=== PATIENT | female | born 1975 | race Caucasian/White ===

== ENCOUNTER 2021-12-22 10:04 | Outpatient (REF) | payer MEDICAID, OTHER, SELFPAY ==
[2021-12-23 13:50] LABS: CT PCR NOT DETECTED (Not Detect.); NG PCR NOT DETECTED (Not Detect.)
[2021-12-24 08:46] LABS: BV Int Neg Control Negative (Negative); BV Int Pos Control Positive (Positive)
[2021-12-26 01:21] LABS: HPV mRNA E6/E7 rflx Not Detected (Not Detected)
== END 2021-12-22 10:05 | disposition home or self-care (01) ==
LOC: HO.LAB 10:04
PROVIDERS: Visit Provider Advanced Practice Midwife
DX: Z01.411 Encounter for gynecological examination (general) (routine) with abnormal findings (principal); Z11.51 Encounter for screening for human papillomavirus (HPV); Z20.2 Contact with and (suspected) exposure to infections with a predominantly sexual mode of transmission; N63.20 Unspecified lump in the left breast, unspecified quadrant
CPT/HCPCS: 87480; 87491; 87510; 87591; 87624; 87660; 88142

== ENCOUNTER 2022-01-06 15:00 | Outpatient (REF) | payer MEDICAID, OTHER, SELFPAY ==
--- NOTE | ~2022-01-06 | MM_ITS ---
EXAMINATION: MM DIAGNOSTIC DIGITAL BREAST TOMOSYNTHESIS, BILATERAL US DIAGNOSTIC ULTRASOUND BREAST, LEFT CLINICAL INFORMATION: 46-year-old with palpable fullness and tenderness upper outer left breast. No prior breast imaging. No known family history breast cancer. The lifetime risk of breast cancer based on the Tyrer-Cuzick Model is 7%. COMPARISON: None (current study represents initial baseline exam). TECHNIQUE: Digital breast tomosynthesis is performed in both the craniocaudal and mediolateral oblique views along with computer-aided detection (CAD). Synthesized 2D images are generated from the tomosynthesis. Additional views left breast are obtained: Rolled CC x2, spot ML. Ultrasound left breast is targeted to the area of clinical symptoms upper outer quadrant with patient supine and sitting upright. Patient is able to point to the area of concern at time of imaging. In addition, ultrasound also performed periareolar superior breast. Grayscale imaging and color Doppler are performed without and with harmonics. FINDINGS: There are scattered areas of fibroglandular density (ACR BI-RADS breast composition Category b). Right breast shows no significant mass or architectural abnormality. Neither breast shows abnormal calcifications. The bilateral axilla and skin contours are unremarkable. There is no skin thickening or coarsening of the Td's ligaments. Left breast shows no mass or architectural abnormality in the area of palpable concern. There is a circumscribed nodule 7 x 5 mm 11:00 periareolar left breast. Ultrasound left breast in area of palpable concern demonstrates no cystic or solid mass or architectural abnormality. There is no focal duct ectasia. No skin thickening or edema tracking in soft tissue planes. Additional ultrasound periareolar 11:00 breast demonstrates probable complicated cyst measuring 7 x 5 x 5 mm. There is no solid component. No associated peripheral or internal color flow. There is no increased or decreased through transmission of sound. Finding will be reassessed again with targeted ultrasound left breast in 6 months. Results are discussed with the patient and her daughter at time of visit. Patient should be managed based on the clinical impression. If clinically indicated, further evaluation may be considered with surgical consult. Decision to proceed with biopsy should be based on clinical grounds and degree of clinical concern. Otherwise, targeted left breast ultrasound in 6 months is recommended for the periareolar nodule 11:00 position, suspected complicated cyst. MM/MM tomosynthesis diagnostic BI IMPRESSION: Left: -No mammographic or ultrasound correlate for patient's clinical concern upper outer quadrant. -Probable benign complicated cyst periareolar 11:00 position under 1 cm. Right: -No mammographic evidence of malignancy. ASSESSMENT: BI-RADS 3: Probably Benign RECOMMENDATION: 1. Patient's palpable concern may be managed based on the clinical impression. If clinically indicated, further evaluation may be considered with surgical consult. Decision to proceed with biopsy should be based on clinical grounds and degree of clinical concern. 2. Targeted left breast ultrasound for follow-up of probable benign complicated cyst periareolar 11:00 position. This patient's information was entered into a reminder system with a target due date for their next breast imaging.
== END 2022-01-06 15:01 | disposition home or self-care (01) ==
LOC: HO.MAMMO 15:00
PROVIDERS: Visit Provider Advanced Practice Midwife
DX: N63.25 Unspecified lump in the left breast, overlapping quadrants (principal)
CPT/HCPCS: 76642; 77062; 77066

== ENCOUNTER 2022-02-16 13:33 | Outpatient (REF) | payer MEDICAID, OTHER, SELFPAY ==
[2022-02-18 21:11] LABS: HPV mRNA E6/E7 rflx Not Detected (Not Detected)
== END 2022-02-16 13:34 | disposition home or self-care (01) ==
LOC: HO.LAB 13:33
PROVIDERS: Visit Provider Advanced Practice Midwife
DX: Z01.419 Encounter for gynecological examination (general) (routine) without abnormal findings (principal); R87.615 Unsatisfactory cytologic smear of cervix
CPT/HCPCS: 87624; 88142; 99212

== ENCOUNTER 2022-07-08 13:02 | Outpatient (REF) | payer MEDICAID, OTHER, SELFPAY ==
--- NOTE | ~2022-07-08 | US_ITS ---
EXAMINATION: US DIAGNOSTIC ULTRASOUND BREAST, LEFT CLINICAL INFORMATION: Short interval six-month follow-up probable benign complicated cyst 11:00 anterior left breast initially noted at diagnostic baseline exam. TC score 7%. COMPARISON: Targeted left breast ultrasound 01/06/2022, mammography 01/06/2022. TECHNIQUE: Ultrasound left breast is targeted to the upper breast. Grayscale imaging and color Doppler are performed without and with harmonics. FINDINGS: The small complicated cyst under 11:00 position 3 cm from nipple under 1 cm is stable from prior diagnostic ultrasound. There are some low-level internal echoes likely related to apocrine metaplasia. There is no associated solid component or color flow. No significant increased through-transmission of sound. No ductal ectasia. No hyperemia. Results are provided to the patient at time of visit by the technologist. US/US breast LT limited IMPRESSION: -Probable benign small complicated cyst 11:00 position stable. ASSESSMENT: BI-RADS 3: Probably Benign RECOMMENDATION: Targeted ultrasound at time of annual bilateral diagnostic mammography, due in 6 months. This patient's information was entered into a reminder system with a target due date for their next mammogram.
== END 2022-07-08 13:03 | disposition home or self-care (01) ==
LOC: HO.MAMMO 13:02
PROVIDERS: Visit Provider Advanced Practice Midwife
DX: R92.2 Inconclusive mammogram (principal)
CPT/HCPCS: 76642

== ENCOUNTER 2022-12-28 16:20 | Emergency (ER) | payer MEDICAID, OTHER, SELFPAY ==
--- NOTE | ~2022-12-28 | CT_ITS ---
EXAMINATION: CT ABDOMEN AND PELVIS WITHOUT CONTRAST CLINICAL INFORMATION: Lower abdominal pain COMPARISON: None TECHNIQUE: Multidetector volumetric imaging was performed from the superior aspect of the liver through the pubic symphysis. Sagittal and coronal reformatted images were obtained on the technologist's workstation. This CT examination was performed using dose optimization techniques as appropriate, variously including the following: *Automated exposure control *Adjustment of mA and/or kV according to patient size (this includes techniques or standardized protocols for targeted exams where dose is matched to indication/reason for exam; i.e. extremities or head) *Use of iterative reconstruction technique DLP: 770 mGy-cm FINDINGS: LUNG BASES: The visualized lung bases are unremarkable. LIVER, GALLBLADDER, AND BILIARY TREE: The liver is normal in size, shape, and attenuation. No focal hepatic lesion or biliary ductal dilatation is present. The gallbladder is unremarkable with no evidence of radiopaque gallstones, gallbladder wall thickening, or obvious pericholecystic inflammatory changes. PANCREAS: Unremarkable. SPLEEN: Unremarkable. ADRENAL GLANDS: There is a 2.4 cm nodule in left adrenal gland measuring -6 HU compatible with benign lipid rich adenoma. Normal right adrenal gland. KIDNEYS AND URETERS: The kidneys are normal in size, shape, and attenuation. No hydronephrosis, hydroureter, or calculi seen. No perinephric stranding. BLADDER: Unremarkable. GASTROINTESTINAL TRACT: The small and large bowel are unremarkable. The appendix is unremarkable. ABDOMINAL WALL: Small indirect inguinal hernias bilaterally. LYMPH NODES: Normal. VASCULAR: Unremarkable. PELVIC VISCERA: All hyperdensity present within the endometrial canal suspicious for blood products. Nabothian cysts in the cervix. There is a 4.8 cm simple appearing cyst in the right ovary. No follow-up imaging recommended. Left adnexa unremarkable. OSSEOUS STRUCTURES: Unremarkable. CT/CT abdomen pelvis wo IV con IMPRESSION: * No acute findings within the abdomen or pelvis to explain the patient's symptomatology. * There is a 2.4 cm left adrenal nodule compatible with a benign lipid rich adenoma.
--- NOTE | ~2022-12-28 | US_ITS ---
EXAMINATION: US PELVIS CLINICAL INFORMATION: Right lower quadrant pain and vaginal bleeding COMPARISON: None TECHNIQUE: Ultrasound of the pelvis is performed using both transabdominal and transvaginal transducers along with Doppler. Transvaginal imaging is performed due to inadequate visualization transabdominally. FINDINGS: Uterus: The uterus is anteverted and measures 11.1 x 5.5 x 6.0 cm. Multiple cysts are present in the uterus mostly anterior with the largest measuring 1.3 cm. This is an unusual finding and can be seen with adenomyosis. Pelvic MRI would be useful for further evaluation. The double wall endometrial thickness is 0.4 mm. The uterus is smooth in contour and has normal myometrial echogenicity. A 2.3 x 2.6 x 2.0 cm fibroid is noted near the left cornu. Nabothian cysts are present in the cervix. Adnexa: Both ovaries are visualized. There is normal color flow to the adnexa. There is no ovarian torsion. There is no pelvic ascites or fluid collection. Right ovary measures 5.1 x 4.4 x 4.6 cm for a volume of 54 mL which includes a 4.1 x 4.0 x 4.1 cm ovarian cyst. Left ovary measures 2.2 x 1.5 x 2.8 cm for a volume of 5 mL and appears unremarkable with follicular cysts. US/US pelvic and transvaginal IMPRESSION: 1. Cystic changes in the uterus which can be seen with adenomyosis. Pelvic MRI would be useful for further evaluation. 2. Uterine fibroid. 3. 4.1 cm right ovarian cyst needs no follow-up.
--- NOTE | ~2022-12-28 | US_ITS ---
EXAMINATION: US PELVIS CLINICAL INFORMATION: Right lower quadrant pain and vaginal bleeding COMPARISON: None TECHNIQUE: Ultrasound of the pelvis is performed using both transabdominal and transvaginal transducers along with Doppler. Transvaginal imaging is performed due to inadequate visualization transabdominally. FINDINGS: Uterus: The uterus is anteverted and measures 11.1 x 5.5 x 6.0 cm. Multiple cysts are present in the uterus mostly anterior with the largest measuring 1.3 cm. This is an unusual finding and can be seen with adenomyosis. Pelvic MRI would be useful for further evaluation. The double wall endometrial thickness is 0.4 mm. The uterus is smooth in contour and has normal myometrial echogenicity. A 2.3 x 2.6 x 2.0 cm fibroid is noted near the left cornu. Nabothian cysts are present in the cervix. Adnexa: Both ovaries are visualized. There is normal color flow to the adnexa. There is no ovarian torsion. There is no pelvic ascites or fluid collection. Right ovary measures 5.1 x 4.4 x 4.6 cm for a volume of 54 mL which includes a 4.1 x 4.0 x 4.1 cm ovarian cyst. Left ovary measures 2.2 x 1.5 x 2.8 cm for a volume of 5 mL and appears unremarkable with follicular cysts. US/US pelvic ovarian doppler IMPRESSION: 1. Cystic changes in the uterus which can be seen with adenomyosis. Pelvic MRI would be useful for further evaluation. 2. Uterine fibroid. 3. 4.1 cm right ovarian cyst needs no follow-up.
[2022-12-28 16:34] VITALS: BP 147/85; PULSE 85; RESP 20; TEMP 36.2; O2SAT 100; BMI 34.3
--- NOTE | 2022-12-28 16:35 | ED_ITS ---
HPI - Female Genitourinary General Chief complaint: Vaginal Bleeding <Millie Olvera CNP - Last Filed: 12/28/22 16:40> Stated complaint: Heavy menstrual/Dizziness <Millie Olvera CNP - Last Filed: 12/28/22 16:40> Time Seen by Provider: 12/28/22 17:23 <Millie Olvera CNP - Last Filed: 12/28/22 16:40> Source: patient <ALEJANDRO Flores - Last Filed: 12/29/22 00:08> Mode of arrival: ambulatory <ALEJANDRO Flores - Last Filed: 12/29/22 00:08> Limitations: no limitations <ALEJANDRO Flores - Last Filed: 12/29/22 00:08> History of Present Illness HPI Narrative: This is a 47-year-old female no significant medical history presenting to the emergency department complaints of heavy vaginal bleeding since 12/13/2022, patient tells me that since then she has been having dark red vaginal bleeding with clots, patient tells me she is going through 7-8 pads per day completely saturating them. Patient tells me she feels tired, weak, lightheaded at times. She tells me that this is never happened to her before. Patient reports she last had a Pap smear about a year ago which was normal. She tells me she was on control about a year ago. She tells me she feels like she has no energy. No history of ovarian cyst. Patient has vague complaints of right lower quadrant pain intermittently however not present at this time, she describes the pain is boring, localized to the right lower quadrant as a crampy sensation, nonradiating. Patient denies changes in bowel habits, nausea, vomiting, headache, vision changes, chest pain, shortness of breath, fevers and chills. Patient denies any concerns for or STDs. <ALEJANDRO Flores - Last Filed: 12/29/22 00:08> Related Data Home medications: Home Medications Medication Instructions Recorded Confirmed calcium carbonate 600 mg calcium 600 mg PO DAILY 12/22/21 12/22/21 (1,500 mg) tablet (Calcium) cholecalciferol (vitamin D3) 25 25 mcg PO DAILY 12/22/21 12/22/21 mcg (1,000 unit) capsule ferrous gluconate 324 mg (38 mg 324 mg PO DAILY 12/22/21 12/22/21 iron) tablet omeprazole 20 mg capsule,delayed 20 mg PO DAILY 12/22/21 12/22/21 release Previous Rx's Medication Instructions Recorded cefuroxime axetil 250 mg tablet 250 mg PO BID 7 days #14 tabs 12/28/22 ferrous sulfate 325 mg (65 mg 325 mg PO TID #30 tabs 12/28/22 iron) tablet medroxyprogesterone 10 mg tablet 10 mg PO DAILY #30 tabs 12/28/22 (Provera) <Millie Olvera CNP - Last Filed: 12/28/22 16:40> Allergies/Adverse reactions: Allergies Allergy/AdvReac Type Severity Reaction Status Date / Time No Known Allergies Allergy Verified 02/16/22 13:39 <Millie Olvera CNP - Last Filed: 12/28/22 16:40> Review of Systems Review of Systems: Constitutional : No Weight loss, No Fever, No Chills, + Fatigue, + Malaise ENT/Mouth : No sore throat, No Rhinorrhea Eyes: No Eye Pain, No Swelling, No Redness Cardiovascular : No Chest Pain, No SOB, No Dyspnea on Exertion, No Orthopnea, No Edema, No Palpitations Respiratory : No Cough, No Sputum, No Wheezing Gastrointestinal : No Nausea, No Vomiting, No Diarrhea, No Constipation, No abdominal Pain, No Hematochezia, No Melena Genitourinary : No Dysuria, No Urinary Frequency, No Hematuria, + vaginal bleeding Musculoskeletal : No joint pain, No Myalgias, No Joint Swelling Skin : No Skin Lesions, No rash Neuro : + Weakness, No Numbness, + Dizziness, No Headache Psych : No Anxiety/Panic, No Depression All other systems reviewed and are negative <ALEJANDRO Flores - Last Filed: 12/29/22 00:08> Yes all other systems are reviewed and are negative <ALEJANDRO Flores - Last Filed: 12/29/22 00:08> [facility] Past Medical History Attestation statement: The following information was validated with the patient. <ALEJANDRO Flores - Last Filed: 12/29/22 00:08> Source: old records reviewed and nursing notes reviewed <ALEJANDRO Flores - Last Filed: 12/29/22 00:08> Medical History: Medical History Hypoparathyroidism Varicose veins of legs Vitamin A deficiency <Millie Archanatunde Olvera CNP - Last Filed: 12/28/22 16:40> Social History Social History: Social History Alcohol intake: never Patient Tobacco Use Status: Never used Tobacco Smoked in Last 30 Days: No Advance Directives: No Advance Directives Information Provided: No Gender identity: Female <Millie Archanatunde Olvera CNP - Last Filed: 12/28/22 16:40> Physical Exam Vital Signs: Vital Signs: Last Vital Signs Temp 998.3 F H 12/28/22 23:53 Pulse 66 12/28/22 23:53 Resp 12/28/22 23:53 BP 125/68 12/28/22 23:53 Pulse Ox 99 12/28/22 20:18 O2 Del Method 12/28/22 20:18 BMI result Body Mass Index 34.3 <Millie AtwoodOFE noguera - Last Filed: 12/28/22 16:40> Vital Signs: Last Vital Signs Temp 998.3 F H 12/28/22 23:53 Pulse 66 12/28/22 23:53 Resp 12/28/22 23:53 BP 125/68 12/28/22 23:53 Pulse Ox 99 12/28/22 20:18 O2 Del Method 12/28/22 20:18 BMI result Body Mass Index 34.3 <Willie Nieto DO - Last Filed: 12/28/22 22:37> Vital Signs: Last Vital Signs Temp 998.3 F H 12/28/22 23:53 Pulse 66 12/28/22 23:53 Resp 15 12/28/22 23:53 BP 125/68 12/28/22 23:53 Pulse Ox 99 12/28/22 20:18 O2 Del Method 12/28/22 20:18 BMI result Body Mass Index 34.3 vss <ALEJANDRO Flores - Last Filed: 12/29/22 00:08> Appearance: Alert.? Oriented X3.? No acute distress.? Head: Normocephalic, atraumatic, no step-offs or deformities Eyes: Pupils equal, round and reactive to light.? ENT: Pharynx normal.? Neck: Normal inspection.? Neck supple.? CVS: Normal heart rate and rhythm.? Pulses normal.? Respiratory: No respiratory distress.? Breath sounds normal.? Abdomen: Soft and nontender.? Negative Rovsing, McBurney's point. Skin: Skin warm and dry.? Normal skin color.? Normal skin turgor.? Extremities: No lower extremity edema.? No calf ttp. 5/5 strength to bilateral upper and lower extremities Sensitive exam: Cervical os is closed, there is dark red blood coming from the cervical os containing large clots. No cervical motion tenderness. No adnexal tenderness. No lesions lumps or masses on my exam. Swabs were obtained. Teressa PCT at the bedside as a commercial housekeeper. Back: No midline tenderness, no C-spine tenderness, full range of motion, no CVA tenderness bilaterally Neuro: Oriented X 3.? No motor deficit.? No sensory deficit. CN 2-12 intact . Normal [id number], [id number]. Steady tandem gait with normal coordination <ALEJANDRO Flores - Last Filed: 12/29/22 00:08> Course Course Course Narrative: This is an RME: Additional HPI, ROS, PE not included below will be deferred to primary provider. Patient is a 47-year-old female presents to the emergency department for evaluation of menstrual bleeding. Reports onset 023, heavy menstrual bleeding with clots. States this was her anticipated menstrual period, however usually lasts approximately 5 days. Using pads, saturating through approximately 7-8 pads daily. Yesterday was seen by her PCP, referred PT to [facility], pending appointment. Reports improvement over the past 2 days, however, having lightheadedness, headache, dizziness. Has history of AMY, denies history of requiring blood transfusion. Plan: labs, hcg, urinalysis <Millie Olvera CNP - Last Filed: 12/28/22 16:40> Reevaluation(s) Reevaluation #1: I did speak to Dr. Luis FOSTER who recommends transfusing with 1 unit of packed red blood cells due to the drop in H&H and patient is symptomatic. He is also worried because Provera will likely take few days to take action. He also recommends giving patient 20 mg of Provera here. And monitor patient until later. <ALEJANDRO Flores - Last Filed: 12/29/22 00:08> Time: 20:05 <ALEJANDRO Flores - Last Filed: 12/29/22 00:08> Reevaluation #2: Patient has only gone through 2 pads during her time here. I did obtain consent for blood transfusion both written and verbal. Will repeat blood count after transfusion. CBC does have a slight normocytic anemia hemoglobin 9.1, hematocrit 27.6, likely secondary to acute blood loss. Chemistry with no acute findings requiring intervention, beta hCG negative. UA with infection. Pelvic ultrasound showing cystic changes in the uterus which can be seen in adenomyosis, pelvic MRI can be done in an outpatient setting. A uterine fibroid is noted. 4.1 cm right ovarian cyst also noted. Again patient does not have tenderness to palpation to right lower quadrant therefore I do not suspect appendicitis. Blood transfusion, orthostatics vital signs, CT abd and pelvis for further investigation of abd pain <ALEJANDRO Flores - Last Filed: 12/29/22 00:08> Time: 22:59 <ALEJANDRO Flores - Last Filed: 12/29/22 00:08> Reevaluation #3: Patient's hemoglobin and hematocrit improving, patient feels slightly better however reporting slight headache which she tells me feels like her typical, no focal neuro deficits. At this time will give morphine, patient will get a ride home. Nursing to go over discharge paperwork in patient's language darkish with japanese interpreter. I did go over with her in Kazakh, she verbalizes understanding however I want to make sure that she understands well. Educated patient on diagnosis and treatment plan, answered all question, patient verbalizes understanding. At this time patient will be discharged home, advised to return with new or worsening symptoms. Educated on worrisome signs and symptoms and when to return. At this time I feel comfortable discharge home. <ALEJANDRO Flores Last Filed: 12/29/22 00:08> Time: 00:07 <ALEJANDRO Flores - Last Filed: 12/29/22 00:08> Medications Administered Discontinued Medications Generic Name Dose Route Start Last Admin Trade Name Freq PRN Reason Stop Dose Admin Medroxyprogesterone Acetate 20 mg 12/28/22 20:40 12/28/22 21:45 Medroxyprogesterone Acetate 5 Mg Tablet PO 12/28/22 20:41 20 mg ONCE ONE Administration <Millie Olvera CNP - Last Filed: 12/28/22 16:40> Medications Administered Discontinued Medications Generic Name Dose Route Start Last Admin Trade Name Freq PRN Reason Stop Dose Admin Medroxyprogesterone Acetate 20 mg 12/28/22 20:40 12/28/22 21:45 Medroxyprogesterone Acetate 5 Mg Tablet PO 12/28/22 20:41 20 mg ONCE ONE Administration <Willie Nieto DO - Last Filed: 12/28/22 22:37> Medications Administered Discontinued Medications Generic Name Dose Route Start Last Admin Trade Name Freq PRN Reason Stop Dose Admin Medroxyprogesterone Acetate 20 mg 12/28/22 20:40 12/28/22 21:45 Medroxyprogesterone Acetate 5 Mg Tablet PO 12/28/22 20:41 20 mg ONCE ONE Administration <ALEJANDRO Flores - Last Filed: 12/29/22 00:08> Medical Decision Making Medical Decision Making [facility] Narrative: 1800 This is a 47-year-old female presenting with heavy vaginal bleeding since 12/13/2022 reports fatigue, malaise, weakness, lightheadedness. Physical exam significant for Cervical os is closed, there is dark red blood coming from the cervical os containing large clots. No cervical motion tenderness. No adnexal tenderness. No lesions lumps or masses on my exam. Swabs were obtained. Teressa LA at the bedside as a commercial housekeeper. Concerns for abnormal vaginal bleeding versus ruptured ovarian cyst. History and physical examination not consistent with ovarian torsion, appendicitis, acute abdomen. Will rule out acute blood loss anemia, electrolyte ab normalities, UTI. Plan at this time ultrasound, basic labs, type and screen, urine. Will obtain vaginal swabs as well for gonorrhea, chlamydia, Trichomonas, bacterial vaginosis. <ALEJANDRO Flores - Last Filed: 12/29/22 00:08> Differential Diagnosis Differential Diagnoses: The differential diagnosis associated with the presentation includes <ALEJANDRO Flores - Last Filed: 12/29/22 00:08> Concerns for abnormal vaginal bleeding versus ruptured ovarian cyst. History and physical examination not consistent with ovarian torsion, appendicitis, acute abdomen. Will rule out acute blood loss anemia, electrolyte abnormalities, UTI. <ALEJANDRO Flores - Last Filed: 12/29/22 00:08> Admission/Observation Consideration of admission/observation: Escalation of care including admission/observation considered <ALEJANDRO Flores - Last Filed: 12/29/22 00:08> Lab Data MDM Lab Attestation statement: I reviewed the patient's lab results. <ALEJANDRO Flores - Last Filed: 12/29/22 00:08> Result Diagrams: 12/28/22 17:09 12/28/22 17:08 <Millie Olvera CNP - Last Filed: 12/28/22 16:40> Labs: Lab Results 12/28/22 12/28/22 12/28/22 Range/Units 17:08 17:08 17:09 WBC 5.8 (4.8-10.8) X10*3/uL RBC 3.19 L (4.20-5.50) X10*6/uL Hgb 9.5 L (12.0-16.0) g/dl Hct 29.2 L (37.0-47.0) % MCV 91.5 (80.0-98.0) fL MCH 29.8 (27.0-33.0) pg MCHC 32.5 (31.0-35.0) g/dl RDW 13.9 (11.0-16.0) % Plt Count 211 (160-400) X10*3/uL MPV 10.5 (9.4-12.3) fL Immature Gran % (Auto) 0.2 (0.0-0.4) % Neut % (Auto) 58.5 (45-73) % Lymph % (Auto) 32.9 (20-40) % [place] % (Auto) 6.7 (2-11) % Eos % (Auto) 1.0 (0-4) % Baso % (Auto) 0.7 (0-2) % Lymph # (Auto) 1.9 (1.2-4.9) X10*3/uL [place] # (Auto) 0.4 (0.1-1.2) X10*3/uL Eos # (Auto) 0.1 (0.0-0.4) X10*3/uL Baso # (Auto) 0.0 (0.0-0.2) X10*3/uL Abs Immat Gran (auto) 0.01 (0.00-0.03) X10*3/uL Absolute Neuts (auto) 3.4 (2.0-8.3) x10*3/uL Absolute Nucleated RBC 0.000 (0.0-0.012) X10*3/uL Nucleated RBC % (auto) 0.0 (0.0-0.2) /100WBC Sodium 140 (135-145) mmol/L Potassium 3.9 (3.3-5.1) mmol/L Chloride 105 (96-108) mmol/L Carbon Dioxide 25 (22-29) mmol/L Anion Gap 14 (12-20) BUN 11 (9-16) mg/dL Creatinine 0.70 (0.5-1.4) mg/dL Estim Creat Clear Calc 110.7 Estimated GFR > 60 Random Glucose 96 (60-115) mg/dL Calcium 8.0 L (8.4-10.2) mg/dL Total Bilirubin 0.5 (0.0-1.0) mg/dL AST 14 (5-31) U/L ALT 10 (0-31) U/L Alkaline Phosphatase 40 (39-117) U/L Total Protein 6.1 L (6.5-8.0) g/dL Albumin 3.7 (3.5-5.0) g/dL Beta HCG, Quant < 2 mIU/mL Urine Color Urine Appearance Urine pH (5.0-9.0) Ur Specific [place] (1.005-1.025) Urine Protein (Neg-Trace) mg/dL Urine Glucose (UA) (Negative) mg/dL Urine Ketones (Negative) mg/dL Urine Blood (Negative) Urine Nitrite (Negative) Ur Leukocyte Esterase (Negative) Urine RBC (0-2) /HPF Urine WBC (0-5) /HPF Ur Squamous Epith Cells (0-2) /HPF Urine Bacteria (None Seen) Hyaline Casts (0-2) /LPF Blood Type A Negative Antibody Screen NEGATIVE Crossmatch See Detail 12/28/22 12/28/22 12/28/22 Range/Units 17:11 20:13 21:17 WBC 5.8 6.0 (4.8-10.8) X10*3/uL RBC 3.04 L 3.02 L (4.20-5.50) X10*6/uL Hgb 9.1 L 9.1 L (12.0-16.0) g/dl Hct 27.6 L 27.4 L (37.0-47.0) % MCV 90.8 90.7 (80.0-98.0) fL MCH 29.9 30.1 (27.0-33.0) pg MCHC 33.0 33.2 (31.0-35.0) g/dl RDW 14.0 14.0 (11.0-16.0) % Plt Count 210 193 (160-400) X10*3/uL MPV 10.7 10.4 (9.4-12.3) fL Immature Gran % (Auto) 0.3 0.0 (0.0-0.4) % Neut % (Auto) 58.8 59.9 (45-73) % Lymph % (Auto) 33.2 32.7 (20-40) % Cascade % (Auto) 6.3 6.2 (2-11) % Eos % (Auto) 0.9 0.7 (0-4) % Baso % (Auto) 0.5 0.5 (0-2) % Lymph # (Auto) 1.9 2.0 (1.2-4.9) X10*3/uL [place] # (Auto) 0.4 0.4 (0.1-1.2) X10*3/uL Eos # (Auto) 0.1 0.0 (0.0-0.4) X10*3/uL Baso # (Auto) 0.0 0.0 (0.0-0.2) X10*3/uL Abs Immat Gran (auto) 0.02 0.00 (0.00-0.03) X10*3/uL Absolute Neuts (auto) 3.4 3.6 (2.0-8.3) x10*3/uL Absolute Nucleated RBC 0.000 0.000 (0.0-0.012) X10*3/uL Nucleated RBC % (auto) 0.0 0.0 (0.0-0.2) /100WBC Sodium (135-145) mmol/L Potassium (3.3-5.1) mmol/L Chloride (96-108) mmol/L Carbon Dioxide (22-29) mmol/L Anion Gap (12-20) BUN (9-16) mg/dL Creatinine (0.5-1.4) mg/dL Estim Creat Clear Calc Estimated GFR Random Glucose (60-115) mg/dL Calcium (8.4-10.2) mg/dL Total Bilirubin (0.0-1.0) mg/dL AST (5-31) U/L ALT (0-31) U/L Alkaline Phosphatase (39-117) U/L Total Protein (6.5-8.0) g/dL Albumin (3.5-5.0) g/dL Beta HCG, Quant mIU/mL Urine Color RED Urine Appearance Turbid Urine pH 5.5 (5.0-9.0) Ur Specific [place] 1.020 (1.005-1.025) Urine Protein 100 (2+) H (Neg-Trace) mg/dL Urine Glucose (UA) Negative (Negative) mg/dL Urine Ketones Trace (Negative) mg/dL Urine Blood Large (3+) H (Negative) Urine Nitrite Positive H (Negative) Ur Leukocyte Esterase Trace H (Negative) Urine RBC >20 H (0-2) /HPF Urine WBC 0-5 (0-5) /HPF Ur Squamous Epith Cells 0-2 (0-2) /HPF Urine Bacteria Trace (None Seen) Hyaline Casts 0-2 (0-2) /LPF Blood Type Antibody Screen Crossmatch 12/28/22 12/28/22 Range/Units 21:55 23:45 WBC 6.2 6.7 (4.8-10.8) X10*3/uL RBC 3.07 L 3.13 L (4.20-5.50) X10*6/uL Hgb 9.1 L 9.5 L (12.0-16.0) g/dl Hct 27.8 L 28.4 L (37.0-47.0) % MCV 90.6 90.7 (80.0-98.0) fL MCH 29.6 30.4 (27.0-33.0) pg MCHC 32.7 33.5 (31.0-35.0) g/dl RDW 13.9 13.8 (11.0-16.0) % Plt Count 199 190 (160-400) X10*3/uL MPV 10.5 10.6 (9.4-12.3) fL Immature Gran % (Auto) 0.2 0.1 (0.0-0.4) % Neut % (Auto) 60.8 57.4 (45-73) % Lymph % (Auto) 31.6 34.6 (20-40) % [place] % (Auto) 6.0 6.4 (2-11) % Eos % (Auto) 0.8 0.9 (0-4) % Baso % (Auto) 0.6 0.6 (0-2) % Lymph # (Auto) 2.0 2.3 (1.2-4.9) X10*3/uL [place] # (Auto) 0.4 0.4 (0.1-1.2) X10*3/uL Eos # (Auto) 0.1 0.1 (0.0-0.4) X10*3/uL Baso # (Auto) 0.0 0.0 (0.0-0.2) X10*3/uL Abs Immat Gran (auto) 0.01 0.01 (0.00-0.03) X10*3/uL Absolute Neuts (auto) 3.8 3.8 (2.0-8.3) x10*3/uL Absolute Nucleated RBC 0.000 0.000 (0.0-0.012) X10*3/uL Nucleated RBC % (auto) 0.0 0.0 (0.0-0.2) /100WBC Sodium (135-145) mmol/L Potassium (3.3-5.1) mmol/L Chloride (96-108) mmol/L Carbon Dioxide (22-29) mmol/L Anion Gap (12-20) BUN (9-16) mg/dL Creatinine (0.5-1.4) mg/dL Estim Creat Clear Calc Estimated GFR Random Glucose (60-115) mg/dL Calcium (8.4-10.2) mg/dL Total Bilirubin (0.0-1.0) mg/dL AST (5-31) U/L ALT (0-31) U/L Alkaline Phosphatase (39-117) U/L Total Protein (6.5-8.0) g/dL Albumin (3.5-5.0) g/dL Beta HCG, Quant mIU/mL Urine Color Urine Appearance Urine pH (5.0-9.0) Ur Specific [place] (1.005-1.025) Urine Protein (Neg-Trace) mg/dL Urine Glucose (UA) (Negative) mg/dL Urine Ketones (Negative) mg/dL Urine Blood (Negative) Urine Nitrite (Negative) Ur Leukocyte Esterase (Negative) Urine RBC (0-2) /HPF Urine WBC (0-5) /HPF Ur Squamous Epith Cells (0-2) /HPF Urine Bacteria (None Seen) Hyaline Casts (0-2) /LPF Blood Type Antibody Screen Crossmatch <Millie Olvera CNP - Last Filed: 12/28/22 16:40> Lab Results 12/28/22 12/28/22 12/28/22 Range/Units 17:08 17:08 17:09 WBC 5.8 (4.8-10.8) X10*3/uL RBC 3.19 L (4.20-5.50) X10*6/uL Hgb 9.5 L (12.0-16.0) g/dl Hct 29.2 L (37.0-47.0) % MCV 91.5 (80.0-98.0) fL MCH 29.8 (27.0-33.0) pg MCHC 32.5 (31.0-35.0) g/dl RDW 13.9 (11.0-16.0) % Plt Count 211 (160-400) X10*3/uL MPV 10.5 (9.4-12.3) fL Immature Gran % (Auto) 0.2 (0.0-0.4) % Neut % (Auto) 58.5 (45-73) % Lymph % (Auto) 32.9 (20-40) % [place] % (Auto) 6.7 (2-11) % Eos % (Auto) 1.0 (0-4) % Baso % (Auto) 0.7 (0-2) % Lymph # (Auto) 1.9 (1.2-4.9) X10*3/uL [place] # (Auto) 0.4 (0.1-1.2) X10*3/uL Eos # (Auto) 0.1 (0.0-0.4) X10*3/uL Baso # (Auto) 0.0 (0.0-0.2) X10*3/uL Abs Immat Gran (auto) 0.01 (0.00-0.03) X10*3/uL Absolute Neuts (auto) 3.4 (2.0-8.3) x10*3/uL Absolute Nucleated RBC 0.000 (0.0-0.012) X10*3/uL Nucleated RBC % (auto) 0.0 (0.0-0.2) /100WBC Sodium 140 (135-145) mmol/L Potassium 3.9 (3.3-5.1) mmol/L Chloride 105 (96-108) mmol/L Carbon Dioxide 25 (22-29) mmol/L Anion Gap 14 (12-20) BUN 11 (9-16) mg/dL Creatinine 0.70 (0.5-1.4) mg/dL Estim Creat Clear Calc 110.7 Estimated GFR > 60 Random Glucose 96 (60-115) mg/dL Calcium 8.0 L (8.4-10.2) mg/dL Total Bilirubin 0.5 (0.0-1.0) mg/dL AST 14 (5-31) U/L ALT 10 (0-31) U/L Alkaline Phosphatase 40 (39-117) U/L Total Protein 6.1 L (6.5-8.0) g/dL Albumin 3.7 (3.5-5.0) g/dL Beta HCG, Quant < 2 mIU/mL Urine Color Urine Appearance Urine pH (5.0-9.0) Ur Specific [place] (1.005-1.025) Urine Protein (Neg-Trace) mg/dL Urine Glucose (UA) (Negative) mg/dL Urine Ketones (Negative) mg/dL Urine Blood (Negative) Urine Nitrite (Negative) Ur Leukocyte Esterase (Negative) Urine RBC (0-2) /HPF Urine WBC (0-5) /HPF Ur Squamous Epith Cells (0-2) /HPF Urine Bacteria (None Seen) Hyaline Casts (0-2) /LPF Blood Type A Negative Antibody Screen NEGATIVE Crossmatch See Detail 12/28/22 12/28/22 12/28/22 Range/Units 17:11 20:13 21:17 WBC 5.8 6.0 (4.8-10.8) X10*3/uL RBC 3.04 L 3.02 L (4.20-5.50) X10*6/uL Hgb 9.1 L 9.1 L (12.0-16.0) g/dl Hct 27.6 L 27.4 L (37.0-47.0) % MCV 90.8 90.7 (80.0-98.0) fL MCH 29.9 30.1 (27.0-33.0) pg MCHC 33.0 33.2 (31.0-35.0) g/dl RDW 14.0 14.0 (11.0-16.0) % Plt Count 210 193 (160-400) X10*3/uL MPV 10.7 10.4 (9.4-12.3) fL Immature Gran % (Auto) 0.3 0.0 (0.0-0.4) % Neut % (Auto) 58.8 59.9 (45-73) % Lymph % (Auto) 33.2 32.7 (20-40) % [place] % (Auto) 6.3 6.2 (2-11) % Eos % (Auto) 0.9 0.7 (0-4) % Baso % (Auto) 0.5 0.5 (0-2) % Lymph # (Auto) 1.9 2.0 (1.2-4.9) X10*3/uL [place] # (Auto) 0.4 0.4 (0.1-1.2) X10*3/uL Eos # (Auto) 0.1 0.0 (0.0-0.4) X10*3/uL Baso # (Auto) 0.0 0.0 (0.0-0.2) X10*3/uL Abs Immat Gran (auto) 0.02 0.00 (0.00-0.03) X10*3/uL Absolute Neuts (auto) 3.4 3.6 (2.0-8.3) x10*3/uL Absolute Nucleated RBC 0.000 0.000 (0.0-0.012) X10*3/uL Nucleated RBC % (auto) 0.0 0.0 (0.0-0.2) /100WBC Sodium (135-145) mmol/L Potassium (3.3-5.1) mmol/L Chloride (96-108) mmol/L Carbon Dioxide (22-29) mmol/L Anion Gap (12-20) BUN (9-16) mg/dL Creatinine (0.5-1.4) mg/dL Estim Creat Clear Calc Estimated GFR Random Glucose (60-115) mg/dL Calcium (8.4-10.2) mg/dL Total Bilirubin (0.0-1.0) mg/dL AST (5-31) U/L ALT (0-31) U/L Alkaline Phosphatase (39-117) U/L Total Protein (6.5-8.0) g/dL Albumin (3.5-5.0) g/dL Beta HCG, Quant mIU/mL Urine Color RED Urine Appearance Turbid Urine pH 5.5 (5.0-9.0) Ur Specific [place] 1.020 (1.005-1.025) Urine Protein 100 (2+) H (Neg-Trace) mg/dL Urine Glucose (UA) Negative (Negative) mg/dL Urine Ketones Trace (Negative) mg/dL Urine Blood Large (3+) H (Negative) Urine Nitrite Positive H (Negative) Ur Leukocyte Esterase Trace H (Negative) Urine RBC >20 H (0-2) /HPF Urine WBC 0-5 (0-5) /HPF Ur Squamous Epith Cells 0-2 (0-2) /HPF Urine Bacteria Trace (None Seen) Hyaline Casts 0-2 (0-2) /LPF Blood Type Antibody Screen Crossmatch 02/07/23 02/07/23 Range/Units 21:55 23:45 WBC 6.2 6.7 (4.8-10.8) X10*3/uL RBC 3.07 L 3.13 L (4.20-5.50) X10*6/uL Hgb 9.1 L 9.5 L (12.0-16.0) g/dl Hct 27.8 L 28.4 L (37.0-47.0) % MCV 90.6 90.7 (80.0-98.0) fL MCH 29.6 30.4 (27.0-33.0) pg MCHC 32.7 33.5 (31.0-35.0) g/dl RDW 13.9 13.8 (11.0-16.0) % Plt Count 199 190 (160-400) X10*3/uL MPV 10.5 10.6 (9.4-12.3) fL Immature Gran % (Auto) 0.2 0.1 (0.0-0.4) % Neut % (Auto) 60.8 57.4 (45-73) % Lymph % (Auto) 31.6 34.6 (20-40) % [place] % (Auto) 6.0 6.4 (2-11) % Eos % (Auto) 0.8 0.9 (0-4) % Baso % (Auto) 0.6 0.6 (0-2) % Lymph # (Auto) 2.0 2.3 (1.2-4.9) X10*3/uL [place] # (Auto) 0.4 0.4 (0.1-1.2) X10*3/uL Eos # (Auto) 0.1 0.1 (0.0-0.4) X10*3/uL Baso # (Auto) 0.0 0.0 (0.0-0.2) X10*3/uL Abs Immat Gran (auto) 0.01 0.01 (0.00-0.03) X10*3/uL Absolute Neuts (auto) 3.8 3.8 (2.0-8.3) x10*3/uL Absolute Nucleated RBC 0.000 0.000 (0.0-0.012) X10*3/uL Nucleated RBC % (auto) 0.0 0.0 (0.0-0.2) /100WBC Sodium (135-145) mmol/L Potassium (3.3-5.1) mmol/L Chloride (96-108) mmol/L Carbon Dioxide (22-29) mmol/L Anion Gap (12-20) BUN (9-16) mg/dL Creatinine (0.5-1.4) mg/dL Estim Creat Clear Calc Estimated GFR Random Glucose (60-115) mg/dL Calcium (8.4-10.2) mg/dL Total Bilirubin (0.0-1.0) mg/dL AST (5-31) U/L ALT (0-31) U/L Alkaline Phosphatase (39-117) U/L Total Protein (6.5-8.0) g/dL Albumin (3.5-5.0) g/dL Beta HCG, Quant mIU/mL Urine Color Urine Appearance Urine pH (5.0-9.0) Ur Specific [place] (1.005-1.025) Urine Protein (Neg-Trace) mg/dL Urine Glucose (UA) (Negative) mg/dL Urine Ketones (Negative) mg/dL Urine Blood (Negative) Urine Nitrite (Negative) Ur Leukocyte Esterase (Negative) Urine RBC (0-2) /HPF Urine WBC (0-5) /HPF Ur Squamous Epith Cells (0-2) /HPF Urine Bacteria (None Seen) Hyaline Casts (0-2) /LPF Blood Type Antibody Screen Crossmatch <Willie Nieto, DO - Last Filed: 12/28/22 22:37> Lab Results 12/28/22 12/28/22 12/28/22 Range/Units 17:08 17:08 17:09 WBC 5.8 (4.8-10.8) X10*3/uL RBC 3.19 L (4.20-5.50) X10*6/uL Hgb 9.5 L (12.0-16.0) g/dl Hct 29.2 L (37.0-47.0) % MCV 91.5 (80.0-98.0) fL MCH 29.8 (27.0-33.0) pg MCHC 32.5 (31.0-35.0) g/dl RDW 13.9 (11.0-16.0) % Plt Count 211 (160-400) X10*3/uL MPV 10.5 (9.4-12.3) fL Immature Gran % (Auto) 0.2 (0.0-0.4) % Neut % (Auto) 58.5 (45-73) % Lymph % (Auto) 32.9 (20-40) % [place] % (Auto) 6.7 (2-11) % Eos % (Auto) 1.0 (0-4) % Baso % (Auto) 0.7 (0-2) % Lymph # (Auto) 1.9 (1.2-4.9) X10*3/uL [place] # (Auto) 0.4 (0.1-1.2) X10*3/uL Eos # (Auto) 0.1 (0.0-0.4) X10*3/uL Baso # (Auto) 0.0 (0.0-0.2) X10*3/uL Abs Immat Gran (auto) 0.01 (0.00-0.03) X10*3/uL Absolute Neuts (auto) 3.4 (2.0-8.3) x10*3/uL Absolute Nucleated RBC 0.000 (0.0-0.012) X10*3/uL Nucleated RBC % (auto) 0.0 (0.0-0.2) /100WBC Sodium 140 (135-145) mmol/L Potassium 3.9 (3.3-5.1) mmol/L Chloride 105 (96-108) mmol/L Carbon Dioxide 25 (22-29) mmol/L Anion Gap 14 (12-20) BUN 11 (9-16) mg/dL Creatinine 0.70 (0.5-1.4) mg/dL Estim Creat Clear Calc 110.7 Estimated GFR > 60 Random Glucose 96 (60-115) mg/dL Calcium 8.0 L (8.4-10.2) mg/dL Total Bilirubin 0.5 (0.0-1.0) mg/dL AST 14 (5-31) U/L ALT 10 (0-31) U/L Alkaline Phosphatase 40 (39-117) U/L Total Protein 6.1 L (6.5-8.0) g/dL Albumin 3.7 (3.5-5.0) g/dL Beta HCG, Quant < 2 mIU/mL Urine Color Urine Appearance Urine pH (5.0-9.0) Ur Specific [place] (1.005-1.025) Urine Protein (Neg-Trace) mg/dL Urine Glucose (UA) (Negative) mg/dL Urine Ketones (Negative) mg/dL Urine Blood (Negative) Urine Nitrite (Negative) Ur Leukocyte Esterase (Negative) Urine RBC (0-2) /HPF Urine WBC (0-5) /HPF Ur Squamous Epith Cells (0-2) /HPF Urine Bacteria (None Seen) Hyaline Casts (0-2) /LPF Blood Type A Negative Antibody Screen NEGATIVE Crossmatch See Detail 12/28/22 12/28/22 12/28/22 Range/Units 17:11 20:13 21:17 WBC 5.8 6.0 (4.8-10.8) X10*3/uL RBC 3.04 L 3.02 L (4.20-5.50) X10*6/uL Hgb 9.1 L 9.1 L (12.0-16.0) g/dl Hct 27.6 L 27.4 L (37.0-47.0) % MCV 90.8 90.7 (80.0-98.0) fL MCH 29.9 30.1 (27.0-33.0) pg MCHC 33.0 33.2 (31.0-35.0) g/dl RDW 14.0 14.0 (11.0-16.0) % Plt Count 210 193 (160-400) X10*3/uL MPV 10.7 10.4 (9.4-12.3) fL Immature Gran % (Auto) 0.3 0.0 (0.0-0.4) % Neut % (Auto) 58.8 59.9 (45-73) % Lymph % (Auto) 33.2 32.7 (20-40) % [place] % (Auto) 6.3 6.2 (2-11) % Eos % (Auto) 0.9 0.7 (0-4) % Baso % (Auto) 0.5 0.5 (0-2) % Lymph # (Auto) 1.9 2.0 (1.2-4.9) X10*3/uL [place] # (Auto) 0.4 0.4 (0.1-1.2) X10*3/uL Eos # (Auto) 0.1 0.0 (0.0-0.4) X10*3/uL Baso # (Auto) 0.0 0.0 (0.0-0.2) X10*3/uL Abs Immat Gran (auto) 0.02 0.00 (0.00-0.03) X10*3/uL Absolute Neuts (auto) 3.4 3.6 (2.0-8.3) x10*3/uL Absolute Nucleated RBC 0.000 0.000 (0.0-0.012) X10*3/uL Nucleated RBC % (auto) 0.0 0.0 (0.0-0.2) /100WBC Sodium (135-145) mmol/L Potassium (3.3-5.1) mmol/L Chloride (96-108) mmol/L Carbon Dioxide (22-29) mmol/L Anion Gap (12-20) BUN (9-16) mg/dL Creatinine (0.5-1.4) mg/dL Estim Creat Clear Calc Estimated GFR Random Glucose (60-115) mg/dL Calcium (8.4-10.2) mg/dL Total Bilirubin (0.0-1.0) mg/dL AST (5-31) U/L ALT (0-31) U/L Alkaline Phosphatase (39-117) U/L Total Protein (6.5-8.0) g/dL Albumin (3.5-5.0) g/dL Beta HCG, Quant mIU/mL Urine Color RED Urine Appearance Turbid Urine pH 5.5 (5.0-9.0) Ur Specific [place] 1.020 (1.005-1.025) Urine Protein 100 (2+) H (Neg-Trace) mg/dL Urine Glucose (UA) Negative (Negative) mg/dL Urine Ketones Trace (Negative) mg/dL Urine Blood Large (3+) H (Negative) Urine Nitrite Positive H (Negative) Ur Leukocyte Esterase Trace H (Negative) Urine RBC >20 H (0-2) /HPF Urine WBC 0-5 (0-5) /HPF Ur Squamous Epith Cells 0-2 (0-2) /HPF Urine Bacteria Trace (None Seen) Hyaline Casts 0-2 (0-2) /LPF Blood Type Antibody Screen Crossmatch 12/28/22 12/28/22 Range/Units 21:55 23:45 WBC 6.2 6.7 (4.8-10.8) X10*3/uL RBC 3.07 L 3.13 L (4.20-5.50) X10*6/uL Hgb 9.1 L 9.5 L (12.0-16.0) g/dl Hct 27.8 L 28.4 L (37.0-47.0) % MCV 90.6 90.7 (80.0-98.0) fL MCH 29.6 30.4 (27.0-33.0) pg MCHC 32.7 33.5 (31.0-35.0) g/dl RDW 13.9 13.8 (11.0-16.0) % Plt Count 199 190 (160-400) X10*3/uL MPV 10.5 10.6 (9.4-12.3) fL Immature Gran % (Auto) 0.2 0.1 (0.0-0.4) % Neut % (Auto) 60.8 57.4 (45-73) % Lymph % (Auto) 31.6 34.6 (20-40) % [place] % (Auto) 6.0 6.4 (2-11) % Eos % (Auto) 0.8 0.9 (0-4) % Baso % (Auto) 0.6 0.6 (0-2) % Lymph # (Auto) 2.0 2.3 (1.2-4.9) X10*3/uL [place] # (Auto) 0.4 0.4 (0.1-1.2) X10*3/uL Eos # (Auto) 0.1 0.1 (0.0-0.4) X10*3/uL Baso # (Auto) 0.0 0.0 (0.0-0.2) X10*3/uL Abs Immat Gran (auto) 0.01 0.01 (0.00-0.03) X10*3/uL Absolute Neuts (auto) 3.8 3.8 (2.0-8.3) x10*3/uL Absolute Nucleated RBC 0.000 0.000 (0.0-0.012) X10*3/uL Nucleated RBC % (auto) 0.0 0.0 (0.0-0.2) /100WBC Sodium (135-145) mmol/L Potassium (3.3-5.1) mmol/L Chloride (96-108) mmol/L Carbon Dioxide (22-29) mmol/L Anion Gap (12-20) BUN (9-16) mg/dL Creatinine (0.5-1.4) mg/dL Estim Creat Clear Calc Estimated GFR Random Glucose (60-115) mg/dL Calcium (8.4-10.2) mg/dL Total Bilirubin (0.0-1.0) mg/dL AST (5-31) U/L ALT (0-31) U/L Alkaline Phosphatase (39-117) U/L Total Protein (6.5-8.0) g/dL Albumin (3.5-5.0) g/dL Beta HCG, Quant mIU/mL Urine Color Urine Appearance Urine pH (5.0-9.0) Ur Specific [place] (1.005-1.025) Urine Protein (Neg-Trace) mg/dL Urine Glucose (UA) (Negative) mg/dL Urine Ketones (Negative) mg/dL Urine Blood (Negative) Urine Nitrite (Negative) Ur Leukocyte Esterase (Negative) Urine RBC (0-2) /HPF Urine WBC (0-5) /HPF Ur Squamous Epith Cells (0-2) /HPF Urine Bacteria (None Seen) Hyaline Casts (0-2) /LPF Blood Type Antibody Screen Crossmatch <ALEJANDRO Flores - Last Filed: 12/29/22 00:08> Core Measures AMI core measures followed: Yes <ALEJANDRO Flores - Last Filed: 12/29/22 00:08> Measure exclusions: not indicated <ALEJANDRO Flores - Last Filed: 12/29/22 00:08> Critical Care Time Critical Care Time Critical Care Time: Yes <Willie Nieto DO - Last Filed: 12/28/22 22:37> No <ALEJANDRO Flores - Last Filed: 12/29/22 00:08> Total Critical Care Time: 45 <Willie Nieto DO - Last Filed: 12/28/22 22:37> Attestation: Patient had to be transfused and consented for blood transfusion, consultation with OB as well as pelvic exam. <Willie Nieto DO - Last Filed: 12/28/22 22:37> Patient had to be transfused and consented for blood transfusion, consultation with OB as well as pelvic exam. I attest to this time spent taking care of the patient, obtaining history, physical, reviewing labs, imaging, speaking to my attending, speaking to specialist. <ALEJANDRO Flores - Last Filed: 12/29/22 00:08> Discharge Plan Discharge Clinical Impression: Abnormal vaginal bleeding, UTI (urinary tract infection) <Millie Olvera CNP - Last Filed: 12/28/22 16:40> Patient Disposition: Home, Self-Care <Millie Olvera CNP - Last Filed: 12/28/22 16:40> Instructions: Menorrhagia (ED) <Millie Olvera CNP - Last Filed: 12/28/22 16:40> Additional Instructions: Take your medications as prescribed. If you were prescribed antibiotics today, it is important that you take your medication to their entirety, do not skip any doses, do not finish them early. Follow-up with your primary care provider this week. Please up with OBGYN as soon as possible within the next day or two. Return to the emergency department with new or worsening symptoms. Such as fevers, chills, chest pain, shortness of breath, nausea, vomiting, dizziness, headache, vision changes, lethargy, worsening bleeding, or if you are bleeding through more than 2 pads per hour. In case of emergency call 911 ?la?lar?n?z? re?ete edildi?i ?ekilde al?n. Bug?n antibiyotik re?ete edildiyse, prashant?lar?n?z? soto olarak alman?z, hi?bir dozu atlamaman?z, erken bitirmemeniz ?nemlidir. Bu hafta birinci basamak sa?l?k hizmeti sa?lay?c?n?zla takip. L?tfen bir veya iki g?n i?inde m?mk?n sascha en k?sa s?rede OBGYN ile ba?lay?n. Sabiha veya k?t?le?en semptomlarla acil servise d?n?n. Ate?, titreme, g???s a?r?s?, nefes darl???, mide bulant?s?, kusma, ba? d?nmesi, ba? a?r?s?, g?rme de?i?iklikleri, uyu?ukluk, k?t?le?en kanartie veya saatte 2 pedden fazla kanaman?z gibi. Acil durumda 911'i aray?n <Millie Olvera CNP - Last Filed: 12/28/22 16:40> Prescriptions: New medroxyprogesterone [Provera] 10 mg tablet 10 mg PO DAILY Qty: 30 0RF ferrous sulfate 325 mg (65 mg iron) tablet 325 mg PO TID Qty: 30 0RF cefuroxime axetil 250 mg tablet 250 mg PO BID 7 Days Qty: 14 0RF No Action ferrous gluconate 324 mg (38 mg iron) tablet 324 mg PO DAILY cholecalciferol (vitamin D3) 25 mcg (1,000 unit) capsule 25 mcg PO DAILY omeprazole 20 mg capsule,delayed release(DR/EC) 20 mg PO DAILY calcium carbonate [Calcium 600] 600 mg calcium (1,500 mg) tablet 600 mg PO DAILY <Millie Olvera CNP - Last Filed: 12/28/22 16:40> Referrals: Willie Nieto DO [Emergency Provider] - 2 days Get Smith MD [Physician] - 2 days <Millie Olvera CNP - Last Filed: 12/28/22 16:40> Stand Alone Forms: Work/School Release <Millie Olvera CNP - Last Filed: 12/28/22 16:40>
[2022-12-28 17:16] LABS: MANUAL DIFF FLAG NO
[2022-12-28 17:17] LABS: Basophils Percent Auto 0.7 % (0-2); Eosinophils Absolute Auto 0.1 X10*3/uL (0.0-0.4); Hematocrit 29.2 % (37.0-47.0); Hemoglobin 9.5 g/dl (12.0-16.0); Imm Gran Abs Auto 0.01 X10*3/uL (0.00-0.03); Imm Gran Pct Auto 0.2 % (0.0-0.4); Lymphocytes Absolute Auto 1.9 X10*3/uL (1.2-4.9); Lymphocytes Percent Auto 32.9 % (20-40); Mean Corpuscular HGB Conc 32.5 g/dl (31.0-35.0); Mean Corpuscular Hemoglobin 29.8 pg (27.0-33.0); Mean Corpuscular Volume 91.5 fL (80.0-98.0); Mean Platelet Volume 10.5 fL (9.4-12.3); Monocytes Absolute Auto 0.4 X10*3/uL (0.1-1.2); Monocytes Percent Auto 6.7 % (2-11); Neutrophils Absolute Auto 3.4 x10*3/uL (2.0-8.3); Neutrophils Percent Auto 58.5 % (45-73); Platelet Count 211 X10*3/uL (160-400); Red Blood Count 3.19 X10*6/uL (4.20-5.50); Red Cell Distribution Width 13.9 % (11.0-16.0); White Blood Count 5.8 X10*3/uL (4.8-10.8)
[2022-12-28 17:32] LABS: Appearance Urine Turbid; Color Urine RED; Glucose Urine UA Negative (Negative); Leukocyte Esterase Urine Trace (Negative); Nitrite Urine Positive (Negative); PH 5.5 (5.0-9.0); UMIC TRIGGER UACC YES; Urine Blood Large (3+) (Negative); Urine Ketones Trace mg/dL (Negative); Urine Protein 100 (2+) mg/dL (Neg-Trace)
[2022-12-28 17:43] LABS: Alanine Aminotransferase 10 U/L (0-31); Albumin Level 3.7 g/dL (3.5-5.0); Alkaline Phosphatase 40 U/L (39-117); Anion Gap 14 (12-20); Aspartate Amino Transferase 14 U/L (5-31); Bilirubin Total 0.5 mg/dL (0.0-1.0); Blood Urea Nitrogen 11 mg/dL (9-16); Carbon Dioxide 25 mmol/L (22-29); Chloride 105 mmol/L (96-108); Creatinine Clr Calc Pharmacy 110.7; Estimated Glomerular Filt Rate > 60; Glucose Random 96 mg/dL (60-115); HCG Quantitative < 2 mIU/mL; Potassium 3.9 mmol/L (3.3-5.1); Sodium 140 mmol/L (135-145); Total Protein 6.1 g/dL (6.5-8.0)
[2022-12-28 17:52] LABS: Bacteria Urine Trace (None Seen); Hyaline Casts Urine 0-2 /LPF (0-2); RBC Urine >20 /HPF (0-2); Squamous Epithelial Cell Urine 0-2 /HPF (0-2); UACC Culture Trigger YES; WBC Urine 0-5 /HPF (0-5)
--- NOTE | 2022-12-28 19:46 | MHC.EDTECH ---
Brought patient walker and two warm blankets.
--- NOTE | 2022-12-28 20:09 | P.CONOB_ITS ---
DRAFTER ASSISTANT - CN: HPI Data of Consult Consult date: 12/28/22 Primary Care Provider: Adair Velazquez MD Consult Narrative Narrative: I was consulted on Umm Andersen who is a 47 year old female presented to the em ergency room with heavy vaginal bleeding over the last 2 weeks, associated passage of blood clots and pelvic cramping more on the right side.? No other concerns. In the emergency room H&H was 9.5/29.2, hCG less than 2, chemistry within normal, pelvic ultrasound was done, GC and chlamydia collected and pending. Repeat H&H 9.27.6 cc:: CC: OB [facility] Past Medical History Medical History Hypoparathyroidism Varicose veins of legs Vitamin A deficiency Social History Social History Alcohol intake: never Patient Tobacco Use Status: Never used Tobacco Smoked in Last 30 Days: No Advance Directives: No Advance Directives Information Provided: No Gender identity: Female Meds Allergies Allergy/AdvReac Type Severity Reaction Status Date / Time No Known Allergies Allergy Verified 02/16/22 13:39 Home Medications Medication Instructions Recorded Confirmed Last Taken Type calcium carbonate 600 mg calcium 600 mg PO DAILY 12/22/21 12/22/21 Unknown History (1,500 mg) tablet (Calcium) cholecalciferol (vitamin D3) 25 25 mcg PO DAILY 12/22/21 12/22/21 Unknown History mcg (1,000 unit) capsule ferrous gluconate 324 mg (38 mg 324 mg PO DAILY 12/22/21 12/22/21 Unknown History iron) tablet omeprazole 20 mg capsule,delayed 20 mg PO DAILY 12/22/21 12/22/21 Unknown History release DRAFTER ASSISTANT Physical Exam Vitals Vital signs: Temp Pulse Resp BP Pulse Ox O2 Del Method 97.2 F 85 20 147/85 H 100 12/28/22 16:34 12/28/22 16:34 12/28/22 16:34 12/28/22 16:34 12/28/22 16:34 12/28/22 16:34 BMI result Body Mass Index 34.3 Additional Comments: Physical exam reported by ALEJANDRO Lima as the following: Abdominal exam : Soft nontender Pelvic exam: Cervical os is closed, blood per vagina, no active bleeding.? No cervical motion tenderness.? No adnexal tenderness.? No lesions lumps or masses on my exam. DRAFTER ASSISTANT - Results Labs 12/28/22 17:09 12/28/22 17:08 Labs: Short CBC 12/28/22 Range/Units 17:09 WBC 5.8 (4.8-10.8) X10*3/uL Hgb 9.5 L (12.0-16.0) g/dl Hct 29.2 L (37.0-47.0) % Plt Count 211 (160-400) X10*3/uL BMP 12/28/22 17:08 Sodium 140 Potassium 3.9 Chloride 105 Carbon Dioxide 25 BUN 11 Creatinine 0.70 Calcium 8.0 L Liver Function 12/28/22 Range/Units 17:08 Total Bilirubin 0.5 (0.0-1.0) mg/dL AST 14 (5-31) U/L ALT 10 (0-31) U/L Alkaline Phosphatase 40 (39-117) U/L Albumin 3.7 (3.5-5.0) g/dL Urine 12/28/22 Range/Units 17:11 Urine Color RED Urine Appearance Turbid Urine pH 5.5 (5.0-9.0) Ur Specific [place] 1.020 (1.005-1.025) Urine Protein 100 (2+) H (Neg-Trace) mg/dL Urine Glucose (UA) Negative (Negative) mg/dL Antibody Screen Antibody Screen NEGATIVE 12/28/22 17:08 Imaging US - abdomen: Radiologist's impression: ITS Impressions Doppler Study Ultrasound 12/28/22 19:04 IMPRESSION: 1. Cystic changes in the uterus which can be seen with adenomyosis. Pelvic MRI would be useful for further evaluation. 2. Uterine fibroid. 3. 4.1 cm right ovarian cyst needs no follow-up. Pelvic/Transvag US 12/28/22 19:04 IMPRESSION: 1. Cystic changes in the uterus which can be seen with adenomyosis. Pelvic MRI would be useful for further evaluation. 2. Uterine fibroid. 3. 4.1 cm right ovarian cyst needs no follow-up. Assessment and Plan (1) Abnormal uterine bleeding (AUB): Status: Acute Plan Recommended to ALEJANDRO Flores the following: Transfuse with 1 unit of packed RBCs, keep the patient for observation for 6 hours, pad, and repeat pelvic exam and CBC. If the patient is stable to be discharged without any significant drop in H&H, with stable vital signs and no evidence of active vaginal bleeding, recommend Provera 10 mg p.o. q.d. and Iron sulfate 325 mg p.o. t.i.d. to be started today and follow-up in the office as soon as possible for endometrial biopsy to rule out endometrial pathology including endometrial hyperplasia and malignancy and to discuss different options of treatment of myoma . Instructions to be given to the patient to come back to the emergency room in case of persistence of her heavy vaginal bleeding , shortness of breath or weakness/tiredness. I spent a total of 20 minutes reviewing the chart, communicating to the emergency room provider and documenting the medical record Time Spent With Patient Time: Total time managing care of this patient today ____ minutes.
[2022-12-28 20:17] LABS: MANUAL DIFF FLAG NO
[2022-12-28 20:18] VITALS: BP 108/63; PULSE 71; RESP 16; TEMP 36.7; O2SAT 99
[2022-12-28 20:18] LABS: Basophils Percent Auto 0.5 % (0-2); Eosinophils Absolute Auto 0.1 X10*3/uL (0.0-0.4); Eosinophils Percent Auto 0.9 % (0-4); Hematocrit 27.6 % (37.0-47.0); Hemoglobin 9.1 g/dl (12.0-16.0); Imm Gran Abs Auto 0.02 X10*3/uL (0.00-0.03); Imm Gran Pct Auto 0.3 % (0.0-0.4); Lymphocytes Absolute Auto 1.9 X10*3/uL (1.2-4.9); Lymphocytes Percent Auto 33.2 % (20-40); Mean Corpuscular Hemoglobin 29.9 pg (27.0-33.0); Mean Corpuscular Volume 90.8 fL (80.0-98.0); Mean Platelet Volume 10.7 fL (9.4-12.3); Monocytes Absolute Auto 0.4 X10*3/uL (0.1-1.2); Monocytes Percent Auto 6.3 % (2-11); Neutrophils Absolute Auto 3.4 x10*3/uL (2.0-8.3); Neutrophils Percent Auto 58.8 % (45-73); Platelet Count 210 X10*3/uL (160-400); Red Blood Count 3.04 X10*6/uL (4.20-5.50); White Blood Count 5.8 X10*3/uL (4.8-10.8)
[2022-12-28 21:21] LABS: MANUAL DIFF FLAG NO
[2022-12-28 21:23] LABS: Basophils Percent Auto 0.5 % (0-2); Eosinophils Percent Auto 0.7 % (0-4); Hematocrit 27.4 % (37.0-47.0); Hemoglobin 9.1 g/dl (12.0-16.0); Lymphocytes Percent Auto 32.7 % (20-40); Mean Corpuscular HGB Conc 33.2 g/dl (31.0-35.0); Mean Corpuscular Hemoglobin 30.1 pg (27.0-33.0); Mean Corpuscular Volume 90.7 fL (80.0-98.0); Mean Platelet Volume 10.4 fL (9.4-12.3); Monocytes Absolute Auto 0.4 X10*3/uL (0.1-1.2); Monocytes Percent Auto 6.2 % (2-11); Neutrophils Absolute Auto 3.6 x10*3/uL (2.0-8.3); Neutrophils Percent Auto 59.9 % (45-73); Platelet Count 193 X10*3/uL (160-400); Red Blood Count 3.02 X10*6/uL (4.20-5.50)
[2022-12-28] MEDS: medroxyPROGESTERone Acetate 5 MG TABLET 20 MG PO (21:45)
[2022-12-28 21:59] LABS: MANUAL DIFF FLAG NO
[2022-12-28 22:00] LABS: Basophils Percent Auto 0.6 % (0-2); Eosinophils Absolute Auto 0.1 X10*3/uL (0.0-0.4); Eosinophils Percent Auto 0.8 % (0-4); Hematocrit 27.8 % (37.0-47.0); Hemoglobin 9.1 g/dl (12.0-16.0); Imm Gran Abs Auto 0.01 X10*3/uL (0.00-0.03); Imm Gran Pct Auto 0.2 % (0.0-0.4); Lymphocytes Percent Auto 31.6 % (20-40); Mean Corpuscular HGB Conc 32.7 g/dl (31.0-35.0); Mean Corpuscular Hemoglobin 29.6 pg (27.0-33.0); Mean Corpuscular Volume 90.6 fL (80.0-98.0); Mean Platelet Volume 10.5 fL (9.4-12.3); Monocytes Absolute Auto 0.4 X10*3/uL (0.1-1.2); Neutrophils Absolute Auto 3.8 x10*3/uL (2.0-8.3); Neutrophils Percent Auto 60.8 % (45-73); Platelet Count 199 X10*3/uL (160-400); Red Blood Count 3.07 X10*6/uL (4.20-5.50); Red Cell Distribution Width 13.9 % (11.0-16.0); White Blood Count 6.2 X10*3/uL (4.8-10.8)
[2022-12-28 23:07] VITALS: BP 121/64; PULSE 70; RESP 18; TEMP 36.6
[2022-12-28 23:23] VITALS: BP 123/67; PULSE 68; RESP 16; TEMP 36.7
[2022-12-28 23:49] LABS: MANUAL DIFF FLAG NO
[2022-12-28 23:53] VITALS: BP 125/68; PULSE 66; RESP 15; TEMP 536.8; TEMP 998.3
[2022-12-28 23:54] LABS: Basophils Percent Auto 0.6 % (0-2); Eosinophils Absolute Auto 0.1 X10*3/uL (0.0-0.4); Eosinophils Percent Auto 0.9 % (0-4); Hematocrit 28.4 % (37.0-47.0); Hemoglobin 9.5 g/dl (12.0-16.0); Imm Gran Abs Auto 0.01 X10*3/uL (0.00-0.03); Imm Gran Pct Auto 0.1 % (0.0-0.4); Lymphocytes Absolute Auto 2.3 X10*3/uL (1.2-4.9); Lymphocytes Percent Auto 34.6 % (20-40); Mean Corpuscular HGB Conc 33.5 g/dl (31.0-35.0); Mean Corpuscular Hemoglobin 30.4 pg (27.0-33.0); Mean Corpuscular Volume 90.7 fL (80.0-98.0); Mean Platelet Volume 10.6 fL (9.4-12.3); Monocytes Absolute Auto 0.4 X10*3/uL (0.1-1.2); Monocytes Percent Auto 6.4 % (2-11); Neutrophils Absolute Auto 3.8 x10*3/uL (2.0-8.3); Neutrophils Percent Auto 57.4 % (45-73); Platelet Count 190 X10*3/uL (160-400); Red Blood Count 3.13 X10*6/uL (4.20-5.50); Red Cell Distribution Width 13.8 % (11.0-16.0); White Blood Count 6.7 X10*3/uL (4.8-10.8)
[2022-12-29] MEDS: 0.9 % Sodium Chloride 1,000 ML 999 ML IV (00:19)
[2022-12-29 00:45] VITALS: RESP 18
[2022-12-29] MEDS: Morphine Sulfate 4 MG/ML CARTRIDGE IVPUSH (00:45)
[2022-12-29 00:52] VITALS: BP 131/79; PULSE 70; RESP 18; TEMP 36.7
[2022-12-29 09:00] LABS: BV Int Neg Control Negative (Negative); BV Int Pos Control Positive (Positive)
[2022-12-29 09:14] LABS: CT PCR NOT DETECTED (Not Detect.); NG PCR NOT DETECTED (Not Detect.)
== END 2022-12-29 01:05 | disposition home or self-care (01) ==
PROVIDERS: Nurse Practitioner Family; Physician Assistant; Emergency Provider Student in an Organized Health Care Education/Training Program; PCP Internal Medicine
DX: N93.9 Abnormal uterine and vaginal bleeding, unspecified (principal); N39.0 Urinary tract infection, site not specified; N93.8 Other specified abnormal uterine and vaginal bleeding; R42 Dizziness and giddiness; R10.31 Right lower quadrant pain; Z79.899 Other long term (current) drug therapy
CPT/HCPCS: 0353U; 36415; 36430; 74176; 76830; 76856; 80053; 81001; 84702; 85025; 86850; 86900; 86901; 86923; 87086; 87147; 87480; 87510; 87660; 93975; 96374; 99284; 99285; J2270; P9016

== ENCOUNTER 2022-12-29 15:25 | Emergency (ER) | payer MEDICAID, OTHER, SELFPAY ==
--- NOTE | 2022-12-29 15:33 | ED.FEMALEGU ---
HPI - Female Genitourinary General Chief complaint: Abdominal Pain Stated complaint: seen prev. menstrual bleeding, dizzy, lghtheaded Related Data Home Medications Medication Instructions Recorded Confirmed calcium carbonate 600 mg calcium 600 mg PO DAILY 12/22/21 12/22/21 (1,500 mg) tablet (Calcium) cholecalciferol (vitamin D3) 25 25 mcg PO DAILY 12/22/21 12/22/21 mcg (1,000 unit) capsule ferrous gluconate 324 mg (38 mg 324 mg PO DAILY 12/22/21 12/22/21 iron) tablet omeprazole 20 mg capsule,delayed 20 mg PO DAILY 12/22/21 12/22/21 release Previous Rx's Medication Instructions Recorded cefuroxime axetil 250 mg tablet 250 mg PO BID 7 days #14 tabs 12/28/22 ferrous sulfate 325 mg (65 mg 325 mg PO TID #30 tabs 12/28/22 iron) tablet medroxyprogesterone 10 mg tablet 10 mg PO DAILY #30 tabs 12/28/22 (Provera) Allergies Allergy/AdvReac Type Severity Reaction Status Date / Time No Known Allergies Allergy Verified 12/30/22 14:26 [facility] Past Medical History Medical History Hypoparathyroidism Varicose veins of legs Vitamin A deficiency Social History Social History Alcohol intake: never Patient Tobacco Use Status: Never used Tobacco Gender identity: Female Physical Exam Vital Signs: Vital Signs: Last Vital Signs Temp 98 F 12/29/22 15:34 Pulse 81 12/29/22 15:34 Resp 17 12/29/22 15:34 BP 142/81 H 12/29/22 15:34 Pulse Ox 97 12/29/22 15:34 O2 Del Method 12/29/22 15:34 BMI result Body Mass Index 34.3 Course Course Course Narrative: This is a rapid medical exam. Deferred additional HPI, ROS, PE to primary provider. 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 47 yo female here with vaginal bleeding (3 pads today), lower abdominal pain, weakness. Seen here yesterday for same and received 1 units of PRBC. Feels bleeding has improved but still feeling weak. Was prescribed Provera but has not picked this up yet. Will obtain labs. [facility] Medical Decision Making Lab Data 12/29/22 16:10 12/29/22 16:10 Labs: Lab Results 12/29/22 12/29/22 Range/Units 16:10 16:10 WBC 5.8 (4.8-10.8) X10*3/uL RBC 3.29 L (4.20-5.50) X10*6/uL Hgb 10.1 L (12.0-16.0) g/dl Hct 30.1 L (37.0-47.0) % MCV 91.5 (80.0-98.0) fL MCH 30.7 (27.0-33.0) pg MCHC 33.6 (31.0-35.0) g/dl RDW 13.9 (11.0-16.0) % Plt Count 205 (160-400) X10*3/uL MPV 10.4 (9.4-12.3) fL Immature Gran % (Auto) 0.5 H (0.0-0.4) % Neut % (Auto) 69.8 (45-73) % Lymph % (Auto) 22.6 (20-40) % [place] % (Auto) 5.7 (2-11) % Eos % (Auto) 0.9 (0-4) % Baso % (Auto) 0.5 (0-2) % Lymph # (Auto) 1.3 (1.2-4.9) X10*3/uL [place] # (Auto) 0.3 (0.1-1.2) X10*3/uL Eos # (Auto) 0.1 (0.0-0.4) X10*3/uL Baso # (Auto) 0.0 (0.0-0.2) X10*3/uL Abs Immat Gran (auto) 0.03 (0.00-0.03) X10*3/uL Absolute Neuts (auto) 4.0 (2.0-8.3) x10*3/uL Absolute Nucleated RBC 0.000 (0.0-0.012) X10*3/uL Nucleated RBC % (auto) 0.0 (0.0-0.2) /100WBC Sodium 141 (135-145) mmol/L Potassium 3.6 (3.3-5.1) mmol/L Chloride 108 (96-108) mmol/L Carbon Dioxide 23 (22-29) mmol/L Anion Gap 14 (12-20) BUN 8 L (9-16) mg/dL Creatinine 0.68 (0.5-1.4) mg/dL Estim Creat Clear Calc 113.9 Estimated GFR > 60 Random Glucose 107 (60-115) mg/dL Calcium 7.7 L (8.4-10.2) mg/dL Discharge Plan Discharge Clinical Impression: Abnormal uterine bleeding (AUB) Patient Disposition: Elopement Prescriptions: No Action medroxyprogesterone [Provera] 10 mg tablet 10 mg PO DAILY Qty: 30 0RF ferrous sulfate 325 mg (65 mg iron) tablet 325 mg PO TID Qty: 30 0RF cefuroxime axetil 250 mg tablet 250 mg PO BID 7 Days Qty: 14 0RF ferrous gluconate 324 mg (38 mg iron) tablet 324 mg PO DAILY cholecalciferol (vitamin D3) 25 mcg (1,000 unit) capsule 25 mcg PO DAILY omeprazole 20 mg capsule,delayed release(DR/EC) 20 mg PO DAILY calcium carbonate [Calcium 600] 600 mg calcium (1,500 mg) tablet 600 mg PO DAILY Mirena 20 mcg/24 hours (8 yrs) 52 mg intrauterine device 1 device intrauterine ONCE Qty: 1 0RF Interventions: LWBS Worksheet Last Done: 12/29/22 19:18 Discharge Date/Time: 12/29/22 19:18
[2022-12-29 15:34] VITALS: BP 142/81; PULSE 81; RESP 17; TEMP 36.6; O2SAT 97; BMI 34.3
[2022-12-29 16:19] LABS: MANUAL DIFF FLAG NO
[2022-12-29 16:20] LABS: Basophils Percent Auto 0.5 % (0-2); Eosinophils Absolute Auto 0.1 X10*3/uL (0.0-0.4); Eosinophils Percent Auto 0.9 % (0-4); Hematocrit 30.1 % (37.0-47.0); Hemoglobin 10.1 g/dl (12.0-16.0); Imm Gran Abs Auto 0.03 X10*3/uL (0.00-0.03); Imm Gran Pct Auto 0.5 % (0.0-0.4); Lymphocytes Absolute Auto 1.3 X10*3/uL (1.2-4.9); Lymphocytes Percent Auto 22.6 % (20-40); Mean Corpuscular HGB Conc 33.6 g/dl (31.0-35.0); Mean Corpuscular Hemoglobin 30.7 pg (27.0-33.0); Mean Corpuscular Volume 91.5 fL (80.0-98.0); Mean Platelet Volume 10.4 fL (9.4-12.3); Monocytes Absolute Auto 0.3 X10*3/uL (0.1-1.2); Monocytes Percent Auto 5.7 % (2-11); Neutrophils Percent Auto 69.8 % (45-73); Platelet Count 205 X10*3/uL (160-400); Red Blood Count 3.29 X10*6/uL (4.20-5.50); Red Cell Distribution Width 13.9 % (11.0-16.0); White Blood Count 5.8 X10*3/uL (4.8-10.8)
[2022-12-29 16:35] LABS: Anion Gap 14 (12-20); Blood Urea Nitrogen 8 mg/dL (9-16); Calcium 7.7 mg/dL (8.4-10.2); Carbon Dioxide 23 mmol/L (22-29); Chloride 108 mmol/L (96-108); Creatinine Clr Calc Pharmacy 113.9; Estimated Glomerular Filt Rate > 60; Glucose Random 107 mg/dL (60-115); Potassium 3.6 mmol/L (3.3-5.1); Sodium 141 mmol/L (135-145)
--- NOTE | 2022-12-29 19:17 | PC.NURSE ---
pt not in waiting room at 2nd call.
== END 2022-12-29 19:18 | disposition left against medical advice (07) ==
PROVIDERS: Nurse Practitioner Family; Emergency Provider Emergency Medicine
DX: N93.9 Abnormal uterine and vaginal bleeding, unspecified (principal); R53.1 Weakness
CPT/HCPCS: 36415; 80048; 85025; 99281; 99283

== ENCOUNTER 2022-12-30 14:07 | Outpatient (REF) | payer MEDICAID, OTHER, SELFPAY | END 2022-12-30 14:08 | disposition home or self-care (01) | LOC: HO.LNP 14:07 | PROVIDERS: Visit Provider Obstetrics & Gynecology | DX: N93.9 Abnormal uterine and vaginal bleeding, unspecified (principal); D21.9 Benign neoplasm of connective and other soft tissue, unspecified | CPT/HCPCS: 36415; 58100; 58300; 84443; 84702; 85027; 88305; 99202; J7298 ==

== ENCOUNTER 2022-12-30 15:47 | Outpatient (REF) | payer MEDICAID, OTHER, SELFPAY ==
[2022-12-30 17:38] LABS: Hematocrit 32.3 % (37.0-47.0); Hemoglobin 10.3 g/dl (12.0-16.0); Mean Corpuscular HGB Conc 31.9 g/dl (31.0-35.0); Mean Corpuscular Hemoglobin 29.6 pg (27.0-33.0); Mean Corpuscular Volume 92.8 fL (80.0-98.0); Mean Platelet Volume 11.3 fL (9.4-12.3); Platelet Count 246 X10*3/uL (160-400); Red Blood Count 3.48 X10*6/uL (4.20-5.50); Red Cell Distribution Width 13.9 % (11.0-16.0); White Blood Count 6.1 X10*3/uL (4.8-10.8)
[2022-12-30 18:19] LABS: HCG Quantitative < 2 mIU/mL; TSH reflex Free T4 0.57 uIU/mL (0.32-4.0)
== END 2022-12-30 15:48 | disposition home or self-care (01) ==
LOC: HO.LAB 15:47
PROVIDERS: Visit Provider Obstetrics & Gynecology
DX: N93.9 Abnormal uterine and vaginal bleeding, unspecified (principal)
CPT/HCPCS: 36415; 84443; 84702; 85027

== ENCOUNTER 2023-01-06 15:13 | Outpatient (REF) | payer MEDICAID, OTHER, SELFPAY ==
--- NOTE | ~2023-01-06 | MM_ITS ---
EXAMINATION: MM DIAGNOSTIC DIGITAL BREAST TOMOSYNTHESIS, BILATERAL US DIAGNOSTIC ULTRASOUND BREAST, LEFT CLINICAL INFORMATION: Due for yearly. Also follow-up probable benign complicated cyst anterior 11:00 left breast initially noted at diagnostic baseline. The lifetime risk of breast cancer based on the Tyrer-Cuzick Model is 9%. COMPARISON: Mammography: 01/06/2022 (diagnostic baseline), left breast ultrasound 01/06/2022 and 07/08/2022. TECHNIQUE: Digital breast tomosynthesis is performed in both the craniocaudal and mediolateral oblique views along with computer-aided detection (CAD). Synthesized 2D images are generated from the tomosynthesis. Ultrasound ultrasound left breast is targeted to the anterior upper breast using grayscale imaging and color Doppler without and with harmonics. FINDINGS: There are scattered areas of fibroglandular density (ACR BI-RADS breast composition Category b). There are no significant masses, abnormal calcifications, or other abnormalities. Parenchymal pattern is similar to prior studies. There is no developing density or architectural abnormality. Circumscribed nodule anterior 11:00 left breast is stable. The axilla and skin contours are unremarkable. There are no significant changes. Ultrasound left breast demonstrates stable complicated cyst anterior 11:00 position under 1 cm. There is similar imaging features, morphology, and no associated color flow. Results are provided to the patient at time of visit by the technologist. MM/MM tomosynthesis diagnostic BI IMPRESSION: 1. No mammographic evidence of malignancy. 2. Stable benign-appearing complicated cyst anterior 11:00 left breast. ASSESSMENT: BI-RADS 3: Probably Benign RECOMMENDATION: Diagnostic mammography and targeted left breast ultrasound at time of next annual exam, due in 12 months. This patient's information was entered into a reminder system with a target due date for their next mammogram.
== END 2023-01-06 15:14 | disposition home or self-care (01) ==
LOC: HO.MAMMO 15:13
PROVIDERS: Visit Provider Advanced Practice Midwife
DX: N60.02 Solitary cyst of left breast (principal)
CPT/HCPCS: 76642; 77062; 77066

== ENCOUNTER → 2023-01-20 14:09 | Outpatient (BNVA) | payer MEDICAID, OTHER, SELFPAY | PROVIDERS: Visit Provider Obstetrics & Gynecology | DX: N93.9 Abnormal uterine and vaginal bleeding, unspecified (principal); D21.9 Benign neoplasm of connective and other soft tissue, unspecified | CPT/HCPCS: 99212 ==

== ENCOUNTER 2023-01-21 13:10 | Outpatient (REF) | payer MEDICAID, OTHER, SELFPAY ==
--- NOTE | ~2023-01-21 | US_ITS ---
EXAMINATION: US PELVIS COMPLETE CLINICAL INFORMATION: Abnormal uterine bleeding COMPARISON: Pelvic ultrasound 12/28/2022 TECHNIQUE: Transabdominal and transvaginal imaging was performed. FINDINGS: The uterus is mildly enlarged measuring 12.0 x 5.8 x 6.4 cm. A regular homogeneous endometrium is identified measuring 0.6 cm. A 2.9 cm subserosal myoma in the left fundus of the uterus previously measured 2.6 cm. Intrauterine device in place. Nabothian cysts in the cervix. Foci of cystic change in the anterior myometrium better appreciated on prior exam however appears similar and could reflect adenomyosis. Both ovaries are of normal echogenicity and measures symmetrically mildly enlarged given bilateral cysts. The right measures 5.2 x 3.4 x 4.7 cm for a volume of 46 mL. The left measures 5.1 x 4.0 x 4.2 cm for a volume of 44.9 mL. A 3.5 cm unilocular simple right ovarian cyst previously 4.1 cm and a 3.8 cm simple unilocular left ovarian cyst Comparison prior. There is no pelvic free fluid. US/US pelvic and transvaginal IMPRESSION: 1. Intrauterine device in place. 2. A 2.9 cm subserosal myoma in the left fundus of the uterus previously measured 2.6 cm. 3. Bilateral ovarian cysts measuring 3.5 cm on the right and 3.8 cm on the left, which are almost certainly benign. No follow-up imaging recommended. 4. Foci of cystic change in the anterior myometrium better appreciated on prior exam however appears similar and could reflect adenomyosis.
== END 2023-01-21 13:11 | disposition home or self-care (01) ==
LOC: HO.US 13:10
PROVIDERS: Visit Provider Nurse Practitioner
DX: D21.9 Benign neoplasm of connective and other soft tissue, unspecified (principal); N93.9 Abnormal uterine and vaginal bleeding, unspecified
CPT/HCPCS: 76830; 76856

== ENCOUNTER 2023-01-28 10:07 | Outpatient (REF) | payer MEDICAID, OTHER, SELFPAY ==
[2023-01-28 11:12] LABS: Hematocrit 37.7 % (37.0-47.0); Hemoglobin 12.6 g/dl (12.0-16.0); Mean Corpuscular HGB Conc 33.4 g/dl (31.0-35.0); Mean Corpuscular Hemoglobin 31.1 pg (27.0-33.0); Mean Corpuscular Volume 93.1 fL (80.0-98.0); Platelet Count 197 X10*3/uL (160-400); Red Blood Count 4.05 X10*6/uL (4.20-5.50); Red Cell Distribution Width 14.5 % (11.0-16.0); White Blood Count 7.1 X10*3/uL (4.8-10.8)
== END 2023-01-28 10:08 | disposition home or self-care (01) ==
LOC: HO.LAB 10:07
PROVIDERS: Visit Provider Obstetrics & Gynecology
DX: D21.9 Benign neoplasm of connective and other soft tissue, unspecified (principal); N93.9 Abnormal uterine and vaginal bleeding, unspecified
CPT/HCPCS: 36415; 85027; 99212

== ENCOUNTER 2023-10-18 11:05 | Outpatient (AMB) | payer SELFPAY ==
[2023-10-18 11:17] VITALS: BP 124/76; BMI 34.1
--- NOTE | 2023-10-18 11:17 | A.OFFVIS_ITS ---
Intake Vital Signs 10/18/23 11:17 Height 5 ft 4 in Weight 198 lb 6.656 oz BMI 34.1 BP 124/76 Intake Visit Reasons: vag discharge [employer] Required: Yes [employer] Language: French [employer] Name: Denys Information Interpreted: non-clinical & clinical Sales Ledger Clerk: Sales Ledger Clerk Present (Denys) Accompanied by: Self / Same As Patient Allergies No Known Allergies Allergy (Verified 10/18/23 11:18) HPI HPI Comments History of Present Illness Details The patient is presenting complaining of vaginal discharge associated with foul odor, no other associated symptoms, vaginal itching or any other complaint [facility] Medical History Hypoparathyroidism Vitamin A deficiency Varicose veins of legs Alcohol intake: never Patient Tobacco Use Status: Never used Tobacco Gender identity: Female Female Reproductive History Menstrual Age of Menarche: 14 Review of Systems Const All systems reviewed & are unremarkable except as noted in HPI and below Physical Exam Vital Signs: Last Vital Signs BP 124/76 10/18/23 11:17 BMI result Body Mass Index 34.1 General: Yes no CVA tenderness External Female Exam: normal external appearance and normal appearance of the urethra Speculum Exam - Vagina: normal appearance of the vagina, normal palpation, no lesions and no masses Speculum Exam - Cervix: normal appearance of the cervix, normal palpation, no lesions, no masses and nontender Bimanual exam- vagina & uterus: normal bimanual exam, normal palpation, uterine size normal, normal palpation, uterine shape normal, No Cervical tenderness present and non-tender Bimanual Exam- Adnexa, other: normal adnexae Back/Spine/Pelvis Back: no CVA tenderness Assessment & Plan Assessment & Plan (1) Bacterial vaginosis: Code(s): N76.0 - Acute vaginitis; B96.89 - Other specified bacterial agents as the cause of diseases classified elsewhere Plan: GC and chlamydia cultures with BV panel taken. Per CDC recommendation, will screen for STI, HepBs Ag, HIV, RPR, Hep C Ab ordered. Will treat with Flagyl 500 mg p.o. b.i.d. x 7 days, Instructions given to the patient to refrain from sexual activity or to use condoms consistently and correctly during the BV treatment regimen, not to douch, it might increase the risk for relapse, and to call if symptoms persist or recur. Orders: Orders HIV Ab/Ag Today Z20.2 - Contact with and (suspected) exposure to infections with a predominantly sexual mode of transmission Hepatitis B Surface Antigen Today Z20.2 - Contact with and (suspected) exposure to infections with a predominantly sexual mode of transmission Syphilis Screen Today Z20.2 - Contact with and (suspected) exposure to infections with a predominantly sexual mode of transmission Hepatitis C Antibody Today Z20.2 - Contact with and (suspected) exposure to infections with a predominantly sexual mode of transmission Medications: New metronidazole 500 mg PO BID 14 tabs 0RF 7 days Coding Level of Care Code Est Pt Level 3 (83858) Diagnoses Bacterial vaginosis N76.0; B96.89
== END 2023-10-18 13:08 | disposition home or self-care (01) ==
LOC: HO.HWS 11:05
PROVIDERS: Visit Provider Obstetrics & Gynecology
DX: N76.0 Acute vaginitis (principal); B96.89 Other specified bacterial agents as the cause of diseases classified elsewhere
CPT/HCPCS: 99213

== ENCOUNTER 2023-10-18 11:05 | Outpatient (REF) | payer MEDICAID, OTHER, SELFPAY ==
[2023-10-18 12:53] LABS: Syphilis Screen Nonreactive (Nonreactive)
[2023-10-19 08:28] LABS: HBsAGNum1 0.34 S/CO (0.00-0.99); HIV AB/AG Nonreactive (Nonreactive); HIV Num 1 0.05 S/CO (0.00-0.99); Hepatitis B Surface Antigen Negative (Negative); ~HepC Num1 0.19 S/CO (0.00-0.79); ~Hepatitis C Antibody Nonreactive (Nonreactive)
== END 2023-10-18 11:06 | disposition home or self-care (01) ==
LOC: HO.LAB 11:05
PROVIDERS: Visit Provider Obstetrics & Gynecology
DX: N76.0 Acute vaginitis (principal); B96.89 Other specified bacterial agents as the cause of diseases classified elsewhere; Z20.2 Contact with and (suspected) exposure to infections with a predominantly sexual mode of transmission
CPT/HCPCS: 0353U; 36415; 86780; 86803; 87340; 87389; 87480; 87510; 87660; 99212

== ENCOUNTER 2023-10-18 11:43 | Outpatient (REF) | payer MEDICAID, OTHER, SELFPAY ==
[2023-10-18 16:33] LABS: CT PCR NOT DETECTED (Not Detect.); NG PCR NOT DETECTED (Not Detect.)
[2023-10-19 13:21] LABS: BV Int Neg Control Negative (Negative); BV Int Pos Control Positive (Positive)
== END 2023-10-18 11:44 | disposition home or self-care (01) ==
LOC: HO.LNP 11:43
PROVIDERS: Visit Provider Obstetrics & Gynecology
DX: N76.0 Acute vaginitis (principal); B96.89 Other specified bacterial agents as the cause of diseases classified elsewhere; Z20.2 Contact with and (suspected) exposure to infections with a predominantly sexual mode of transmission
CPT/HCPCS: 0353U; 87480; 87510; 87660

== ENCOUNTER → 2023-12-27 15:00 | Outpatient (BNV) | payer OTHER, SELFPAY | PROVIDERS: PCP Internal Medicine; Visit Provider Radiology Diagnostic Radiology | DX: N63.22 Unspecified lump in the left breast, upper inner quadrant (principal) | CPT/HCPCS: 76642; 77062; 77066 ==

== ENCOUNTER 2023-12-27 15:02 | Outpatient (REF) | payer OTHER, SELFPAY ==
--- NOTE | ~2023-12-27 | MM_ITS ---
EXAMINATION: MM DIAGNOSTIC DIGITAL BREAST TOMOSYNTHESIS, BILATERAL US BREAST LIMITED, LEFT MAMMOGRAPHY: CLINICAL INFORMATION: 1 year follow-up (for two-year total stability) complicated cyst left breast 11:00 axis, anterior one third. Patient also due for routine bilateral screening. COMPARISON: 01/06/2023 mammography and left ultrasound, 01/06/2022 (BI-RADS 0) mammography and left ultrasound, and 07/08/2022 left breast ultrasound. TECHNIQUE: Digital breast tomosynthesis is performed in both the craniocaudal and mediolateral oblique views along with computer-aided detection (CAD). Synthesized 2D images are generated from the tomosynthesis. In addition to standard views, spot compression 3-D right MLO view was obtained, as well as a full-field left mediolateral 3-D view. FINDINGS: The breasts are heterogeneously dense, which may obscure small masses (ACR BI-RADS breast composition Category c). There are no suspicious masses, suspicious grouped calcifications, or areas of architectural distortion in either breast. The heterogeneously dense somewhat nodular parenchymal pattern is stable from prior exams. There are no skin or axillary abnormalities. Within the 11:00 axis of the left breast, anterior one third, there is a 6 mm oval circumscribed mass 3 cm from the nipple, consistent with the known probably benign complicated cyst. This is unchanged in size and morphology on mammography. ULTRASOUND: CLINICAL INFORMATION: 1 year Follow-up left breast complicated cyst for two-year stability. COMPARISON: As above. TECHNIQUE: Targeted sonographic evaluation was performed using a high frequency linear transducer. Attention was given to the left breast 11:00 axis III cm from the nipple, in the region of known complicated cyst. Selected archived documentation. FINDINGS: LEFT BREAST: -There is a slightly smaller triangular-shaped complicated cyst in the 11:00 axis of the left breast, 3 cm from the nipple, measuring 6 x 3 x 4 mm. This has good through transmission and a small amount of internal specular debris. No internal color Doppler flow. It has remained stable to slightly smaller in size, and otherwise stable in morphology when compared with 01/06/2022. Two-year stability is established, and no further follow-up is recommended for this benign finding. MM/MM tomosynthesis diagnostic BI IMPRESSION: There are no findings suspicious for malignancy in either breast. Essentially stable complicated left breast cyst at the 11:00 axis, 3 cm from the nipple. This demonstrates two-year stability and is a benign finding. No further follow-up recommended. Recommend the patient resume routine annual screening mammography. OVERALL ASSESSMENT: Mammography: BI-RADS 2 - Benign Findings Ultrasound: BI-RADS 2 - Benign Findings RECOMMENDATION: 1 year F/U Results were provided to the patient at time of visit by the technologist. This patient's information was entered into a reminder system with a target due date for their next mammogram.
== END 2023-12-27 15:03 | disposition home or self-care (01) ==
LOC: HO.MAMMO 15:02
PROVIDERS: PCP Internal Medicine; Visit Provider Advanced Practice Midwife
DX: N63.22 Unspecified lump in the left breast, upper inner quadrant (principal)
CPT/HCPCS: 76642; 77062; 77066

== ENCOUNTER 2024-02-02 10:37 | Outpatient (REF) | payer OTHER, SELFPAY ==
[2024-02-02 15:13] LABS: Vitamin D 25-OH Total 76.3 ng/mL (>30)
== END 2024-02-02 10:38 | disposition home or self-care (01) ==
LOC: HO.CHCLDS 10:37
PROVIDERS: Visit Provider Internal Medicine
DX: E55.9 Vitamin D deficiency, unspecified (principal)
CPT/HCPCS: 36415; 82306

== ENCOUNTER 2024-04-23 16:56 | Emergency (ER) | payer MEDICAID, SELFPAY ==
[2024-04-23 17:28] VITALS: BP 125/79; PULSE 74; RESP 16; TEMP 36.7; O2SAT 97; BMI 34.3
--- NOTE | 2024-04-23 17:47 | ED_ITS ---
HPI - General Adult General Chief complaint: General Medical Stated complaint: tick on abd Time Seen by Provider: 04/23/24 17:46 Source: patient, family (daughter), RN notes reviewed and old records reviewed Mode of arrival: ambulatory Limitations: no limitations History of Present Illness ED Provider: Sharon LEON narrative: 48-year-old female presents for evaluation of a tick bite. Patient noticed a tick on her left lower abdomen at around 9:00 a.m. this morning She believes the tick was on her yesterday around 6:00 p.m. as she went on a hike in the [facility] She states that she checked herself yesterday morning and there was no tick in the area She denies any signs or symptoms Patient attempted to remove the tick herself but believes that the head of the tick remained embedded in her skin Related Data Home Medications ?Medication ?Instructions ?Recorded ?Confirmed calcium carbonate (Calcium 600) 600 mg PO DAILY 12/22/21 12/22/21 cholecalciferol (vitamin D3) 25 25 mcg PO DAILY 12/22/21 12/22/21 mcg (1,000 unit) capsule ferrous gluconate 324 mg (38 mg 324 mg PO DAILY 12/22/21 12/22/21 iron) tablet omeprazole 20 mg capsule,delayed 20 mg PO DAILY 12/22/21 12/22/21 release Previous Rx's ?Medication ?Instructions ?Recorded cefuroxime axetil 250 mg tablet 250 mg PO BID 7 days #14 tabs 12/28/22 ferrous sulfate 325 mg (65 mg 325 mg PO TID #30 tabs 12/28/22 iron) tablet medroxyprogesterone 10 mg tablet 10 mg PO DAILY #30 tabs 12/28/22 (Provera) metronidazole 500 mg tablet 500 mg PO BID 7 days #14 tabs 10/18/23 Allergies Allergy/AdvReac Type Severity Reaction Status Date / Time No Known Allergies Allergy Verified 04/23/24 17:32 Review of Systems Constitutional: Constitutional: Denies body ache(s), Denies chills and Denies fever(s) Integumentary/Breasts: Skin/Breast: Denies rash PMFSH Past Medical History Medical History Hypoparathyroidism Vitamin A deficiency Varicose veins of legs Social History Social History Alcohol intake: never Patient Tobacco Use Status: Never used Tobacco Advance Directives: No Advance Directives Information Provided: No Gender identity: Female Physical Exam ED Vital Signs: Vital Signs - 24 hr 04/23/24 17:28 Temperature 98.1 F Pulse Rate 74 Respiratory Rate 16 Blood Pressure 125/79 Pulse Oximetry 97 Oxygen Delivery Method Room Air BMI result Body Mass Index 34.3 Const General: healthy appearing, comfortable, no acute distress, alert and awake Nutritional Appearance: well nourished Orientation/consciousness: patient oriented x3 HENMT Head: Yes normocephalic and Yes atraumatic Neck Neck: Yes full ROM Resp Effort & Inspection: normal respiratory effort, able to speak in complete sentences and not labored GI Inspection: No distended Palpation (GI): Soft to palpation, not firm, nontender, no guarding and not rigid Skin Other: Superficial wound to left lower abdomen. No obvious retained foreign body General skin exam: elasticity normal Neuro General: patient oriented x3 Cranial nerves: Yes Bilaterally intact EOM present Cognition (Neuro): normal cognition Extrem Other: Moving all extremities well without any obvious deformities Medical Decision Making Medical Decision Making MDM Narrative: 48-year-old female presents for evaluation of a tick bite. There is no obvious portion of the tick remaining within her skin. She states that she checked herself yesterday morning when she showered and there was no tick on her. Therefore the tick was on her for less than 36 hours and she does not meet criteria for Lyme prophylaxis. She was still offered testing for Lyme and declines Differential Diagnosis Differential Diagnoses: The differential diagnosis associated with the presentation includes Tick bite And will bite Lyme exposure Puncture wound Discharge Plan Discharge Clinical Impression: Tick bite of abdomen Patient Disposition: Home, Self-Care Instructions: Tick Bite (ED) Additional Instructions: It is unlikely to contract Lyme disease if the tick is on for less than 30 hours Return to the ER if you develop any target rash, fevers Follow-up with your primary doctor return for new or worsening symptoms Prescriptions: No Action medroxyprogesterone [Provera] 10 mg tablet 10 mg PO DAILY Qty: 30 0RF ferrous sulfate 325 mg (65 mg iron) tablet 325 mg PO TID Qty: 30 0RF cefuroxime axetil 250 mg tablet 250 mg PO BID 7 Days Qty: 14 0RF ferrous gluconate 324 mg (38 mg iron) tablet 324 mg PO DAILY cholecalciferol (vitamin D3) 25 mcg (1,000 unit) capsule 25 mcg PO DAILY omeprazole 20 mg capsule,delayed release(DR/EC) 20 mg PO DAILY calcium carbonate [Calcium 600] 600 mg calcium (1,500 mg) tablet 600 mg PO DAILY Mirena 20 mcg/24 hours (8 yrs) 52 mg intrauterine device 1 device intrauterine ONCE Qty: 1 0RF metronidazole 500 mg tablet 500 mg PO BID 7 Days Qty: 14 0RF Discharge Date/Time: 04/23/24 18:03 Print Language: Swedish
--- NOTE | 2024-04-23 18:01 | PC.NURSE ---
pt was seen and discharged from triage by provider
== END 2024-04-23 18:03 | disposition home or self-care (01) ==
LOC: HO.ED 17:53
PROVIDERS: Emergency Provider Internal Medicine; PCP Internal Medicine
DX: S30.861A Insect bite (nonvenomous) of abdominal wall, initial encounter (principal); W57.XXXA Bitten or stung by nonvenomous insect and other nonvenomous arthropods, initial encounter; Y93.01 Activity, walking, marching and hiking; Y92.821 Forest as the place of occurrence of the external cause; Y99.9 Unspecified external cause status; E20.9 Hypoparathyroidism, unspecified; E50.9 Vitamin A deficiency, unspecified; Z79.899 Other long term (current) drug therapy
CPT/HCPCS: 99281; 99283

== ENCOUNTER 2025-05-13 13:35 | Outpatient (REF) | payer MEDICAID, SELFPAY ==
[2025-05-13 13:44] LABS: MANUAL DIFF FLAG NO
[2025-05-13 13:56] LABS: Basophils Absolute Auto 0.1 X10*3/uL (0.0-0.2); Basophils Percent Auto 0.7 % (0-2); Eosinophils Absolute Auto 0.1 X10*3/uL (0.0-0.4); Eosinophils Percent Auto 0.7 % (0-4); Hematocrit 36.3 % (37.0-47.0); Hemoglobin 12.5 g/dl (12.0-16.0); Imm Gran Abs Auto 0.02 X10*3/uL (0.00-0.03); Imm Gran Pct Auto 0.3 % (0.0-0.4); Lymphocytes Absolute Auto 1.9 X10*3/uL (1.2-4.9); Mean Corpuscular HGB Conc 34.4 g/dl (31.0-35.0); Mean Corpuscular Hemoglobin 32.7 pg (27.0-33.0); Mean Platelet Volume 10.5 fL (9.4-12.3); Monocytes Absolute Auto 0.4 X10*3/uL (0.1-1.2); Monocytes Percent Auto 6.1 % (2-11); Neutrophils Absolute Auto 4.6 x10*3/uL (2.0-8.3); Neutrophils Percent Auto 65.2 % (45-73); Platelet Count 178 X10*3/uL (160-400); Red Blood Count 3.82 X10*6/uL (4.20-5.50); Red Cell Distribution Width 12.2 % (11.0-16.0); White Blood Count 7.1 X10*3/uL (4.8-10.8)
[2025-05-13 14:20] LABS: Alanine Aminotransferase 15 U/L (0-31); Albumin Level 3.9 g/dL (3.5-5.0); Alkaline Phosphatase 41 U/L (39-117); Anion Gap 11 (12-20); Aspartate Amino Transferase 18 U/L (5-31); Bilirubin Total 0.5 mg/dL (0.0-1.0); Blood Urea Nitrogen 10 mg/dL (9-16); Calcium 8.4 mg/dL (8.4-10.2); Carbon Dioxide 26 mmol/L (22-29); Chloride 105 mmol/L (96-108); Estimated Glomerular Filt Rate > 60; Glucose Random 97 mg/dL (60-115); Potassium 4.2 mmol/L (3.3-5.1); Sodium 138 mmol/L (135-145); Total Protein 6.5 g/dL (6.5-8.0)
== END 2025-05-13 13:36 | disposition home or self-care (01) ==
LOC: HO.LAB 13:35
PROVIDERS: PCP Internal Medicine; Visit Provider Internal Medicine
DX: E20.81 Hypoparathyroidism due to impaired parathyroid hormone secretion (principal); D50.9 Iron deficiency anemia, unspecified
CPT/HCPCS: 36415; 80053; 85025

== ENCOUNTER 2025-09-18 11:20 | Outpatient (AMB) | payer SELFPAY ==
--- NOTE | 2025-09-18 11:30 | MHC.OFFVIS ---
Intake Visit Reasons: vag bleeding Holiday Detector Operator: Holiday Detector Operator Present (Nina) Accompanied by: Daughter Allergies No Known Allergies Allergy (Verified 04/23/24 17:32) HPI Comments Details: Presenting complaining of 0 vaginal bleeding over the last few months associated passage of blood clots and pelvic cramping Last Co testing in 02/09 was negative Last mammogram in 01/14 was BI-RADS 2 [facility] Medical History (Updated 09/18/25 @ 11:46 by Get Smith MD) Hypoparathyroidism Vitamin A deficiency Varicose veins of legs Surgical History (Updated 09/18/25 @ 11:42 by Get Smith MD) H/O prior ablation treatment Social History Alcohol intake: never Patient Tobacco Use Status: Never used Tobacco Gender identity: Female Female Reproductive History Menstrual Age of Menarche: 14 Duration of menses: 3-5 days Date of last menstrual period: 09/09/25 Review of Systems Const All systems reviewed & are unremarkable except as noted in HPI and below Card Reports as per HPI Resp Reports as per HPI GI Reports as per HPI and Reports no additional complaints Reports as per HPI Physical Exam Const General: cooperative, healthy appearing and comfortable Chest Chest palpation & inspection: normal inspection of the chest and normal palpation of entire chest wall Breast/axilla inspection: normal inspection of the breasts and normal inspection of the axillae Breast/axilla palpation: normal palpation of the breasts, normal palpation of the axillae and no axillary lymphadenopathy Resp Effort & Inspection: normal respiratory effort Auscultation: clear to auscultation bilaterally Percussion: percussion normal Cardio Palpation: normal PMI Rate: regular rate Rhythm: regular rhythm Heart sounds: no murmurs and no rubs Peripheral pulses: Peripheral pulses 2+ throughout GI Inspection: Yes normal to inspection Palpation (GI): Soft to palpation, nontender, no guarding, not rigid and No hepatosplenomegaly present Percussion: Yes normal to percussion Auscultation: normal bowel sounds Rectal Exam - Female: deferred General: Yes bladder normal to palpation External Female Exam: No lesion Speculum Exam - Vagina: normal appearance of the vagina, normal palpation, normal vaginal discharge and not erythematous Speculum Exam - Cervix: normal appearance of the cervix and normal palpation Bimanual exam- vagina & uterus: normal bimanual exam, normal palpation, uterine size normal, bladder normal to palpation, consistency normal and normal palpation Bimanual Exam- Adnexa, other: normal adnexae, no masses and no tenderness Assessment & Plan Assessment & Plan (1) Abnormal uterine bleeding (AUB): Comment: History of ablation in [place] Code(s): N93.9 - Abnormal uterine and vaginal bleeding, unspecified Category: Medical Plan: Screening mammogram, Co testing done, GC and chlamydia taken CBC, TSH, HCG, FSH/LH and pelvic ultrasound ordered. Discussed with the patient the different causes of abnormal bleeding including thyroid disorders, uterine and ovarian pathology, endometrial hyperplasia, carcinoma and other potential causes. Discussed with the patient the work up including CBC (to r/o anemia), TSH, FSH/LH, pelvic Ultrasound, endometrial biopsy to r/o endometrial pathology. All questions answered and the patient verbalized understanding. Instructed the patient to schedule an appointment for an endometrial biopsy in 2 weeks. Orders: Orders TSH reflex Free T4 Today N93.9 - Abnormal uterine and vaginal bleeding, unspecified MM screening mammo BI Today Z12.31 - Encounter for screening mammogram for malignant neoplasm of breast Complete Blood Count no Diff Today N93.9 - Abnormal uterine and vaginal bleeding, unspecified Lutenizing Hormone Today N93.9 - Abnormal uterine and vaginal bleeding, unspecified Follicle Stimulating Hormone Today N93.9 - Abnormal uterine and vaginal bleeding, unspecified US pelvic and transvaginal Today N93.9 - Abnormal uterine and vaginal bleeding, unspecified Coding Level of Care Code Est Pt Level 3 (86690) Diagnoses Abnormal uterine bleeding (AUB) N93.9
--- OUTSIDE RECORDS SUMMARY | 2025-09-18 14:25 | XMS_ITS | Encounter Summary ---
Author Organization [email or web address] Address [address] [place] [address] [address] [place] [address] Care Team Providers Care Primary Special Education Teacher Name Role Phone Adair Jj MD Primary Care Prov ider Reason for Visit * Reason Onset Date Comments Referral 11/04/2023 Encounter Details Date Type Department Care Team ([facility] st Contact Info) Description 11/04/2023 Telephone [facility] MED & PEDS [address] [place], [place] [phone] Adair Jj MD [address] [place] [address] Referral Social History Tobacco Use Types Packs/Day Years Used Date Smoking Tobacco: Never Smokeless Tobacco: Never Alcohol Use Standard Drinks/Week Comments Never 0 (1 standard drink = 0.6 oz pur e alcohol) Depression Answer Date Recorded Patient Health Questionnaire-9 Score 0 02/07/2023 Housing Stability Answer Date Recorded What is your housing situation today? I have viviana dominguez 09/26/[address] you li ve. Do you have problems with any of the following? None of the above 09/26/2023 Food Insecurity Answer Date Recorded Within the past 12 months, y ou worried that your food would run out before you got money to buy more: Never True 09/26/2023 Within the past 12 months,th e food you bought just didn't last and you didn't have enough money to get more: Never True 04/2023 Transportation Answer Date Recorded In the past 12 months, has l ack of transportation kept you from medical appts, meetings, work or from getting things needed for daily living? No 09/26/2023 Utilities Answer Date Recorded In the past 12 months, has t he electric, gas, oil or water company threatened to shut off services in your home? No 09/26/2023 Depression Answer Date Recorded Patient Health Questionnaire-2 Score 0 02/07/2023 Comments Unknown Sex and Gender Information Value Date Recorded Sex Assigned at Female 09/20/2022 10:26 AM EDT Legal Sex Female 10:26 AM EDT Gender Identity Female 09/20/2022 10:26 AM EDT Sexual Orientation Don't know 09/20/2022 10 :26 AM EDT documented as of this encounter Miscellaneous Notes * Telephone Encounter - Snow Wei RN - 11/23/2023 2:04 PM EST Noted thank you * Telephone Encounter - Seferino Rodríguez - 11/04/2023 2:07 PM EST Referral Location: [facility] Date: 11/08/23 Time: 1:45 Specialty: Physical Therapy DX: Acute pain of right knee documented in this encounter Plan of Treatment Not on file documented as of this encounter Visit Diagnoses Not on filedocumented in this encounter Additional Health Concerns Assessment Noted Time PHQ-9 Depression Total Score: 0 02/08/20 1:47 PM EDT documented as of this encounter Care Teams Primary Special Education Teacher Relationship Specialty Start Date End Date Adair Jj MD [address] [place] [id number] PCP - General Internal Medicine 03/31/20 documented as of this encounter
--- OUTSIDE RECORDS SUMMARY | 2025-09-18 14:25 | XMS_ITS | Encounter Summary ---
Author Organization [employer] Address [address] [facility] 7 [place] [address] Care Team Providers Care Theology Professor Name Role Phone Adair Jj MD Primary Care Prov ider Reason for Visit * Reason Onset Date Comments Nurse Triage 05/06/2025 Encounter Details Date Type Department Care Team ([facility] st Contact Info) Description 05/06/2025 Telephone [facility] MEDICINE [address] [place] [address] Adair Jj MD [address] [place] [address] Nurse Triage Social History Tobacco Use Types Packs/Day Years [...] encounter Miscellaneous Notes * Telephone Encounter - Charlene Dallsa RN - 05/08/2025 2:02 PM EDT Triage call Pt daughter is with Pt and reports Pt has had some numbness of bilateral fingers as well as overall fatigue/tiredness. Daughter reports this usually happens when Pt is low in calcium or iron. Pt would like to see provider. ASK apt with provider [facility] at 320pm today. Pt agrees with disp osition and insurance is verified as active prior to booking. Protocol Used: Neurologic Deficit (Adult) Protocol-Based Disposition: See in Office or Video Visit Today Video visit not offered Positive Triage Question: * Patient wants to be seen * All higher-acuity triage questions were negative Care Advice Discussed: * Reasons To Call Back - Symptoms do not go away within 10 to 15 minutes - You become worse * Telephone Encounter - Mckenna Callaway - 05/08/2025 1:47 PM EDT Tc from pt daughter returning phone call. [phone] * Telephone Encounter - Charlene Dallas RN - 05/06/2025 12:52 PM EDT Triage call to [phone] Pt daughter answered but, Pt not with daughter. [place] [id number] [place], Pt was called at [phone] Pt didn't answer. Voice message left to call [facility] [phone]. Call to daughter again and advised to call [facility] [phone] when daughter is with Pt and daughter agreed to call back. * Telephone Encounter - Keerthi Amador - 05/06/2025 12:10 PM EDT Symptom: Numbness on fingers Outcome: Schedule an urgent appointment (within 1 hour) or talk to a nurse or provider soon Reason: Getting worse The caller accepted this outcome. documented in this encounter Plan of Treatment Not on file documented as of this encounter Visit Diagnoses Not on filedocumented in this encounter Additional Health Concerns Assessment Noted Time PHQ-9 Depression Total Score: 0 02/08/20 23 1:47 PM EDT documented as of this encounter Care Teams Theology Professor Relationship Specialty Start Date End Date Adair Jj MD [address] [place] [id number] PCP - General Internal Medicine 03/31/20 documented as of this encounter
--- OUTSIDE RECORDS SUMMARY | 2025-09-18 14:25 | XMS_ITS | Encounter Summary ---
Author Organization [employer] Address [address] [place] [address] 7 [place] [address] Care Team Providers Care Moving Worker Name Role Phone Adair Jj MD Primary Care Prov ider Reason for Visit * Reason Onset Date Comments Referral 11/07/2023 Encounter Details Date Type Department Care Team ([facility] st Contact Info) Description 11/07/2023 Telephone [facility] MED & PEDS [address] [place], [place] [phone] Adair Jj MD [address] [place] [address] Referral Social History Tobacco Use Types Packs/Day [...] encounter Miscellaneous Notes * Telephone Encounter - Alba Daryn - 11/07/2023 1:22 PM EST Tc from pt daughter states pt is requesting a referral to [facility] for [facility]. documented in this encounter Plan of Treatment Not on file documented as of this encounter Visit Diagnoses Not on filedocumented in this encounter Additional Health Concerns Assessment Noted Time PHQ-9 Depression Total Score: 0 02/08/20 23 1:47 PM EDT documented as of this encounter Care Teams Moving Worker Relationship Specialty Start Date End Date Adair Jj MD [address] [place] [id number] PCP - General Internal Medicine 03/31/20 documented as of this encounter
--- OUTSIDE RECORDS SUMMARY | 2025-09-18 14:25 | XMS_ITS | Encounter Summary ---
Author Organization [employer] Address [address] [facility] [address] [place] [address] Care Team Providers Care Retail Wireless Sales Consultant Name Role Phone Adair Jj MD Primary Care Prov ider Encounter Details Date Type Department Care Team ([facility] st Contact Info) Description 12/06/2024 Telephone [facility] MEDICINE [address] [place] [address] Adair Jj MD [address] [place], [place] [phone] Social History Tobacco Use Types Packs/Day Years Used Date Smoking Tobacco: Never Smokeless Tobacco: Never Alcohol Use Standard Drinks/Week Comments Never 0 (1 standard drink = 0.6 oz pur e alcohol) Depression Answer Date Recorded Patient Health Questionnaire-9 Score 0 02/07/2023 Housing Stability Answer Date Recorded What is your housing situation today? I have vivianasheri dominguez 09/26/[address] you [...] AM EDT documented as of this encounter Plan of Treatment Not on file documented as of this encounter Visit Diagnoses Not on filedocumented in this encounter Additional Health Concerns Assessment Noted Time PHQ-9 Depression Total Score: 0 02/08/20 23 1:47 PM EDT documented as of this encounter Care Teams Retail Wireless Sales Consultant Relationship Specialty Start Date End Date Adair Jj MD [address] [place] [address] PCP - General Internal Medicine 03/31/20 documented as of this encounter
--- OUTSIDE RECORDS SUMMARY | 2025-09-18 14:25 | XMS_ITS | Encounter Summary ---
Author Organization [employer] Address [address] [place] [address] 7 [place] [address] Care Team Providers Care Community Arts Worker Name Role Phone Adair Jj MD Primary Care Prov ider Reason for Visit * Reason Onset Date Comments Referral 10/17/2023 Encounter Details Date Type Department Care Team ([facility] st Contact Info) Description 10/17/2023 Telephone [facility] MED & PEDS [address] [place], [place] [phone] Adair Jj MD [address] [place] [address] Referral Social History Tobacco Use Types Packs/Day [...] encounter Miscellaneous Notes * Telephone Encounter - Yamila Perry - 10/19/2023 4:44 PM EST Niche is only accepted at [facility]. * Telephone Encounter - Fercho Sanchez - 10/17/2023 3:10 PM EST Tc from pt daughter requesting if possible to sent referral made on 07/18/2023 for Orthopedic Surgery ( Patient had a [facility] Surgery [facility] [place] ) to another location due to current location referral was sent to is not cover by insurance and it is to much to afford at this time. Please contact Daughter at [phone] documented in this encounter Plan of Treatment Not on file documented as of this encounter Visit Diagnoses Not on filedocumented in this encounter Additional Health Concerns Assessment Noted Time PHQ-9 Depression Total Score: 0 02/08/20 23 1:47 PM EDT documented as of this encounter Care Teams Community Arts Worker Relationship Specialty Start Date End Date Adair Jj MD [address] [place] [id number] PCP - General Internal Medicine 03/31/20 documented as of this encounter
--- OUTSIDE RECORDS SUMMARY | 2025-09-18 14:26 | XMS_ITS | Encounter Summary ---
Author Organization [employer] Address [address] [facility] [address] [place] [address] Care Team Providers Care Can Capper Name Role Phone Adair Jj MD Primary Care Prov ider Encounter Details Date Type Department Care Team ([facility] st Contact Info) Description 12/03/2022 Orders Only [facility] [address] [place] [address] Jasmine Carballo LPN Social History Tobacco Use Types Packs/Day Years Used Date Smoking Tobacco: Never Assessed Comments Unknown Sex and Gender Information Value Date Recorded Sex Assigned at Female 09/20/2022 10:26 AM EDT Legal Sex Female 10:26 AM EDT Gender Identity Female 09/20/2022 10:26 AM EDT Sexual Orientation Don't know 09/20/2022 10 :26 AM EDT documented as of this encounter Plan of Treatment Not on file documented as of this encounter Procedures Procedure Name Priority Date/Time Associated Diagnosis Comments TSH W/REFLEX TO FT4 Routine 12/30/2022 4 :05 PM EST CBC Routine 12/30/2022 4:05 PM EST HCG, TOTAL, QN Routine 12/30/2022 4:05 PM EST HEMATOXYLIN AND EOSIN STAIN Routine 12/30/2022 3:28 PM EST CBC WITH AUTO DIFFERENTIAL Routine 12/29/2022 4:10 PM EST BASIC METABOLIC PANEL Routine 12/29/2022 4:10 PM EST CBC WITH AUTO DIFFERENTIAL Routine 12/28/2022 11:45 PM EST CBC WITH AUTO DIFFERENTIAL Routine 12/28/2022 9:55 PM EST CBC WITH AUTO DIFFERENTIAL Routine 12/28/2022 9:17 PM EST CBC WITH AUTO DIFFERENTIAL Routine 12/28/2022 8:13 PM EST SURESWAB(R) ADVANCED VAGINITIS, TMA Routine 12/28/2022 6:28 PM EST CHLAMYDIA/N. GONORRHOEAE RNA, TMA, UROGENITAL Routine 12/28/2022 6:28 PM EST WET PREP, GENITAL Routine 12/28/2022 6:2 8 PM EST CULTURE, URINE, ROUTINE Routine 12/28/2022 5:53 PM EST URINALYSIS, COMPLETE, WITH REFLEX TO CULTURE Routine 12/28/2022 5:11 PM EST CBC WITH AUTO DIFFERENTIAL Routine 12/28/2022 5:09 PM EST RED BLOOD COUNT Routine 12/28/2022 5:08 PM EST TYPE AND SCREEN Routine 12/28/2022 5:08 PM EST HCG, TOTAL, QN Routine 12/28/2022 5:08 PM EST COMPREHENSIVE METABOLIC PANEL Routine 12/28/2022 5:08 PM EST documented in this encounter Results * HCG, Total, Quantitative (12/30/2022 4:05 PM EST) HCG Quantitative <2 mIU/mL [facility] Comment:Weeks post LMP Appr oximate hCG(Last Menstrual Period) Range (mIU/ml)3 - 4 weeks 9 - 1304 - 5 weeks 75 - 2,6005 - 6 weeks 850 - 20,8006 - 7 weeks 4000 - 100,2007 - 12 weeks 11,500 - 289,73897 - 16 weeks 18,300 - 137,39503 - 29 weeks (2nd trimester) 1,400 - 53,21440 - 41 weeks (3rd trimester) 940 - 60,000The Arredondo B-hCG assay is used for the early detection ofpregnancy; it cannot be used to diagnose any conditionunrelated to . If a B-hCG level is not supportedby the clinical evidence, results should be confirmed by analternative method (qualitative urine hCG, for example). 12/30/2022 4:05 PM EST 12/30/2022 4:06 PM EST [facility] External Provider LAB BLO OD ORDERABLES Final Result Performing Organization Address City/[facility]/ZIP Co de Phone Number [facility] [address] [place] [phone] * TSH W/Reflex to FT4 (12/30/2022 4:05 PM EST) TSH reflex Free T4 0.57 0.32 - 4.0 uIU/mL [facility] 12/30/2022 4:05 PM EST 12/30/2022 4:06 PM EST [facility] External Provider LAB BLO OD ORDERABLES Final Result Performing Organization Address City/[facility]/ZIP Co de Phone Number [facility] [address] [place] [phone] * (ABNORMAL) CBC (12/30/2022 4:05 PM EST) White Blood Count 6.1 4.8 - 10.8 X10*3/uL [facility] Red Blood Count 3.48(L) 4.20 - 5.50 X10*6/uL [facility] Hemoglobin 10.3(L) 12.0 - 16.0 g/dl [facility] Hematocrit 32.3(L) 37.0 - 47.0 % [facility] Mean Corpuscular Volume 92.8 80.0 - 98.0 fL [facility] Mean Corpuscular Hemoglobin 29.6 27.0 - 33.0 pg [facility] Mean Corpuscular HGB Conc 31.9 31.0 - 35.0 g/dl [facility] Red Cell Distribution Width 13.9 11.0 - 16.0 % [facility] Platelet Count 246 160 - 400 X10*3/uL [facility] Mean Platelet Volume 11.3 9.4 - 12.3 fL [facility] NRBC Pct Auto 0.0 0.0 - 0.2 /100WBC [facility] NRBC Abs Auto 0.000 0.0 - 0.012 X10*3/uL [facility] 12/30/2022 4:05 PM EST 12/30/2022 4:06 PM EST us [facility] External Provider LAB BLO OD ORDERABLES Final Result Performing Organization Address City/State/[facility] Co de Phone Number [facility] [address] [place] [phone] * Hematoxylin and Eosin Stain (12/30/2022 3:28 PM EST) 12/30/2022 3:28 PM EST 12/31/2022 6:27 AM EST Narrative [facility] - 01/03/2023 4:02 PM EST ----- ------- Name: Umm Andersen Age/Sex: 47/F : 1975 Unit#: [id number] Attend Dr: Get Smith MD Re12/30/22 Status: [facility] REF Location: [facility] Disch: ----- ------- SPEC : [id number] RECD: 12/31/22 STATUS: EYAD ROME NUM: [id number] DYLLAN: 12/30/[address] [facility] [address]: Get Smith MD ENTERED: 12/31/22 SP TYPE: Surgical OTHR DR: [facility] ORDERED: HE Stain/2, Gross Micro L4 Diagnosis Endometrium, biopsy: Benign dyssynchronous endometrium with proliferative, inactive, and poorly-developed secretory glands, glandular and stromal breakdown, and ectatic stromal vessels with thrombi, suggesting anovulatory cycles; no atypia or carcinoma. Clinical History AUB Microscopic Description Microscopic sections reviewed. Material Received EMB Gross Description Received in formalin labeled EMB is a 2.0 x 1.7 x 0.5 cm. aggregate of predominantly mucus and blood with multiple irregular and tubular cast fragments of congested and hemorrhagic, red-maroon tissue. The specimen is submitted in toto in a single cassette labeled A. CEDS Copies To: [address] [phone] Get Smith MD [address] [place], [place] [address]Gagandeep [address] [address] ----- ------- Signed (signature on file) Carolina Gill 01/03/23 1602 ----- ------- END OF REPORT [facility] External Provider LAB BLO OD ORDERABLES Final Result [facility] [address] [place] [phone] [phone] * (ABNORMAL) Basic Metabolic Panel (12/29/2022 4:10 PM EST) Sodium 141 135 - 145 mmol/L [facility] Potassium 3.6 3.3 - 5.1 mmol/L [facility] Chloride 108 96 - 108 mmol/L [facility] Carbon Dioxide 23 22 - 29 mmol/L [facility] Anion Gap 14 12 - 20 [facility] Urea Nitrogen (BUN) 8(L) 9 - 16 mg/dL [facility] Creatinine, Serum 0.68 0.5 - 1.4 mg/dL [facility] Creatinine Clr Calc Pharmacy 113.9 [facility] Comment:Provided height and weight: 162.56 cm,90.718 kg.eGFR (calculated from the MDRD study equation) and eCrCl(calculated from the Cockcroft-Gault equation) are based ondifferent parameters and may not yield comparable results.If eCrCl result is absurd, please check patient'sheight/weight. Estimated Glomerular Filt Rate >60 [facility] Comment:NOTE: For -Am erican individuals, multiply the result by 1.210.Chronic Kidney Disease: Estimated GFR < 60 mL/min/1.26u9Usbvgl Kidney Disease: Estimated GFR < 15 mL/min/1.73m2 Glucose 107 60 - 115 mg/dL [facility] Calcium 7.7(L) 8.4 - 10.2 mg/dL [facility] 12/29/2022 4:10 PM EST 12/29/2022 4:17 PM EST us [facility] External Provider LAB BLO OD ORDERABLES Final Result [facility] [address] [place] [phone] * (ABNORMAL) CBC auto differential (12/29/2022 4:10 PM EST) White Blood Count 5.8 4.8 - 10.8 X10*3/uL [facility] Red Blood Count 3.29(L) 4.20 - 5.50 X10*6/uL [facility] Hemoglobin 10.1(L) 12.0 - 16.0 g/dl [facility] Hematocrit 30.1(L) 37.0 - 47.0 % [facility] Mean Corpuscular Volume 91.5 80.0 - 98.0 fL [facility] Mean Corpuscular Hemoglobin 30.7 27.0 - 33.0 pg [facility] Mean Corpuscular HGB Conc 33.6 31.0 - 35.0 g/dl [facility] Red Cell Distribution Width 13.9 11.0 - 16.0 % [facility] Platelet Count 205 160 - 400 X10*3/uL [facility] Mean Platelet Volume 10.4 9.4 - 12.3 fL [facility] Neutrophils Percent Auto 69.8 45 - 73 % [facility] Imm Gran Pct Auto 0.5(H) 0.0 - 0.4 % [facility] Lymphocytes Percent Auto 22.6 20 - 40 % [facility] Monocytes Percent Auto 5.7 2 - 11 % [facility] Eosinophils Percent Auto 0.9 0 - 4 % [facility] Basophils Percent Auto 0.5 0 - 2 % [facility] NRBC Pct Auto 0.0 0.0 - 0.2 /100WBC [facility] Neutrophils Absolute Auto 4.0 2.0 - 8.3 x10*3/uL [facility] Imm Gran Abs Auto 0.03 0.00 - 0.03 X10*3/uL [facility] Lymphocytes Absolute Auto 1.3 1.2 - 4.9 X10*3/uL [facility] Monocytes Absolute Auto 0.3 0.1 - 1.2 X10*3/uL [facility] Eosinophils Absolute Auto 0.1 0.0 - 0.4 X10*3/uL [facility] Basophils Absolute Auto 0.0 0.0 - 0.2 X10*3/uL [facility] NRBC Abs Auto 0.000 0.0 - 0.012 X10*3/uL [facility] 12/29/2022 4:10 PM EST 12/29/2022 4:17 PM EST us [facility] External Provider LAB BLO OD ORDERABLES Final Result [facility] [address] [place] [phone] * (ABNORMAL) CBC auto differential (12/28/2022 11:45 PM EST) White Blood Count 6.7 4.8 - 10.8 X10*3/uL [facility] Red Blood Count 3.13(L) 4.20 - 5.50 X10*6/uL [facility] Hemoglobin 9.5(L) 12.0 - 16.0 g/dl [facility] Hematocrit 28.4(L) 37.0 - 47.0 % [facility] Mean Corpuscular Volume 90.7 80.0 - 98.0 fL [facility] Mean Corpuscular Hemoglobin 30.4 27.0 - 33.0 pg [facility] Mean Corpuscular HGB Conc 33.5 31.0 - 35.0 g/dl [facility] Red Cell Distribution Width 13.8 11.0 - 16.0 % [facility] Platelet Count 190 160 - 400 X10*3/uL [facility] Mean Platelet Volume 10.6 9.4 - 12.3 fL [facility] Neutrophils Percent Auto 57.4 45 - 73 % [facility] Imm Gran Pct Auto 0.1 0.0 - 0.4 % [facility] Lymphocytes Percent Auto 34.6 20 - 40 % [facility] Monocytes Percent Auto 6.4 2 - 11 % [facility] Eosinophils Percent Auto 0.9 0 - 4 % [facility] Basophils Percent Auto 0.6 0 - 2 % [facility] NRBC Pct Auto 0.0 0.0 - 0.2 /100WBC [facility] Neutrophils Absolute Auto 3.8 2.0 - 8.3 x10*3/uL [facility] Imm Gran Abs Auto 0.01 0.00 - 0.03 X10*3/uL [facility] Lymphocytes Absolute Auto 2.3 1.2 - 4.9 X10*3/uL [facility] Monocytes Absolute Auto 0.4 0.1 - 1.2 X10*3/uL [facility] Eosinophils Absolute Auto 0.1 0.0 - 0.4 X10*3/uL [facility] Basophils Absolute Auto 0.0 0.0 - 0.2 X10*3/uL [facility] NRBC Abs Auto 0.000 0.0 - 0.012 X10*3/uL [facility] 12/28/2022 11:4 5 PM EST 12/28/2022 11:48 PM EST us [facility] External Provider LAB BLO OD ORDERABLES Final Result [facility] [address] [place] [phone] * (ABNORMAL) CBC auto differential (12/28/2022 9:55 PM EST) White Blood Count 6.2 4.8 - 10.8 X10*3/uL [facility] Red Blood Count 3.07(L) 4.20 - 5.50 X10*6/uL [facility] Hemoglobin 9.1(L) 12.0 - 16.0 g/dl [facility] Hematocrit 27.8(L) 37.0 - 47.0 % [facility] Mean Corpuscular Volume 90.6 80.0 - 98.0 fL [facility] Mean Corpuscular Hemoglobin 29.6 27.0 - 33.0 pg [facility] Mean Corpuscular HGB Conc 32.7 31.0 - 35.0 g/dl [facility] Red Cell Distribution Width 13.9 11.0 - 16.0 % [facility] Platelet Count 199 160 - 400 X10*3/uL [facility] Mean Platelet Volume 10.5 9.4 - 12.3 fL [facility] Neutrophils Percent Auto 60.8 45 - 73 % [facility] Imm Gran Pct Auto 0.2 0.0 - 0.4 % [facility] Lymphocytes Percent Auto 31.6 20 - 40 % [facility] Monocytes Percent Auto 6.0 2 - 11 % [facility] Eosinophils Percent Auto 0.8 0 - 4 % [facility] Basophils Percent Auto 0.6 0 - 2 % [facility] NRBC Pct Auto 0.0 0.0 - 0.2 /100WBC [facility] Neutrophils Absolute Auto 3.8 2.0 - 8.3 x10*3/uL [facility] Imm Gran Abs Auto 0.01 0.00 - 0.03 X10*3/uL [facility] Lymphocytes Absolute Auto 2.0 1.2 - 4.9 X10*3/uL [facility] Monocytes Absolute Auto 0.4 0.1 - 1.2 X10*3/uL [facility] Eosinophils Absolute Auto 0.1 0.0 - 0.4 X10*3/uL [facility] Basophils Absolute Auto 0.0 0.0 - 0.2 X10*3/uL [facility] NRBC Abs Auto 0.000 0.0 - 0.012 X10*3/uL [facility] 12/28/2022 9:55 PM EST 12/28/2022 9:58 PM EST [facility] External Provider LAB BLO OD ORDERABLES Final Result [facility] [address] [place], [place] [phone] * (ABNORMAL) CBC auto differential (12/28/2022 9:17 PM EST) White Blood Count 6.0 4.8 - 10.8 X10*3/uL [facility] Red Blood Count 3.02(L) 4.20 - 5.50 X10*6/uL [facility] Hemoglobin 9.1(L) 12.0 - 16.0 g/dl [facility] Hematocrit 27.4(L) 37.0 - 47.0 % [facility] Mean Corpuscular Volume 90.7 80.0 - 98.0 fL [facility] Mean Corpuscular Hemoglobin 30.1 27.0 - 33.0 pg [facility] Mean Corpuscular HGB Conc 33.2 31.0 - 35.0 g/dl [facility] Red Cell Distribution Width 14.0 11.0 - 16.0 % [facility] Platelet Count 193 160 - 400 X10*3/uL [facility] Mean Platelet Volume 10.4 9.4 - 12.3 fL [facility] Neutrophils Percent Auto 59.9 45 - 73 % [facility] Imm Gran Pct Auto 0.0 0.0 - 0.4 % [facility] Lymphocytes Percent Auto 32.7 20 - 40 % [facility] Monocytes Percent Auto 6.2 2 - 11 % [facility] Eosinophils Percent Auto 0.7 0 - 4 % [facility] Basophils Percent Auto 0.5 0 - 2 % [facility] NRBC Pct Auto 0.0 0.0 - 0.2 /100WBC [facility] Neutrophils Absolute Auto 3.6 2.0 - 8.3 x10*3/uL [facility] Imm Gran Abs Auto 0.00 0.00 - 0.03 X10*3/uL [facility] Lymphocytes Absolute Auto 2.0 1.2 - 4.9 X10*3/uL [facility] Monocytes Absolute Auto 0.4 0.1 - 1.2 X10*3/uL [facility] Eosinophils Absolute Auto 0.0 0.0 - 0.4 X10*3/uL [facility] Basophils Absolute Auto 0.0 0.0 - 0.2 X10*3/uL [facility] NRBC Abs Auto 0.000 0.0 - 0.012 X10*3/uL [facility] 12/28/2022 9:17 PM EST 12/28/2022 9:20 PM EST us [facility] External Provider LAB BLO OD ORDERABLES Final Result [facility] [address] [place], [place] [phone] * (ABNORMAL) CBC auto differential (12/28/2022 8:13 PM EST) White Blood Count 5.8 4.8 - 10.8 X10*3/uL [facility] Red Blood Count 3.04(L) 4.20 - 5.50 X10*6/uL [facility] Hemoglobin 9.1(L) 12.0 - 16.0 g/dl [facility] Hematocrit 27.6(L) 37.0 - 47.0 % [facility] Mean Corpuscular Volume 90.8 80.0 - 98.0 fL [facility] Mean Corpuscular Hemoglobin 29.9 27.0 - 33.0 pg [facility] Mean Corpuscular HGB Conc 33.0 31.0 - 35.0 g/dl [facility] Red Cell Distribution Width 14.0 11.0 - 16.0 % [facility] Platelet Count 210 160 - 400 X10*3/uL [facility] Mean Platelet Volume 10.7 9.4 - 12.3 fL [facility] Neutrophils Percent Auto 58.8 45 - 73 % [facility] Imm Gran Pct Auto 0.3 0.0 - 0.4 % [facility] Lymphocytes Percent Auto 33.2 20 - 40 % [facility] Monocytes Percent Auto 6.3 2 - 11 % [facility] Eosinophils Percent Auto 0.9 0 - 4 % [facility] Basophils Percent Auto 0.5 0 - 2 % [facility] NRBC Pct Auto 0.0 0.0 - 0.2 /100WBC [facility] Neutrophils Absolute Auto 3.4 2.0 - 8.3 x10*3/uL [facility] Imm Gran Abs Auto 0.02 0.00 - 0.03 X10*3/uL [facility] Lymphocytes Absolute Auto 1.9 1.2 - 4.9 X10*3/uL [facility] Monocytes Absolute Auto 0.4 0.1 - 1.2 X10*3/uL [facility] Eosinophils Absolute Auto 0.1 0.0 - 0.4 X10*3/uL [facility] Basophils Absolute Auto 0.0 0.0 - 0.2 X10*3/uL [facility] NRBC Abs Auto 0.000 0.0 - 0.012 X10*3/uL [facility] 12/28/2022 8:13 PM EST 12/28/2022 8:15 PM EST us [facility] External Provider LAB BLO OD ORDERABLES Final Result [facility] [address] [place] [address] [phone] * Chlamydia/N. Gonorrhoeae RNA, TMA, Urogenitial (12/28/2022 6:28 PM EST) CT PCR NOT DETECTED Not Detect. [facility] Comment:A not detected test result does not exclude the possibilityof infection because test results can be affected byimproper specimen collection, concurrent antibiotic therapy,or the number of organisms in the specimen which may bebelow the sensitivity of the test. As with many diagnostictests, results from the Xpert CT/NG assay should beinterpreted in conjunction with other laboratory andclinical data available to the clinician.Xpert CT/NG performance has not been evaluated in patientsless than 14 years of age. The assay should not be used forthe evaluationof suspected sexual abuse or for other medico-legalindications. Additional testing is recommended in anycircumstance when false positive or false negative resultscould lead to adverse medical, social or psychologicalconsequences. NG PCR NOT DETECTED Not Detect. [facility] Comment:A not detected test result does not exclude the possibilityof infection because test results can be affected byimproper specimen collection, concurrent antibiotic therapy,or the number of organisms in the specimen which may bebelow the sensitivity of the test. As with many diagnostictests, results from the Xpert CT/NG assay should beinterpreted in conjunction with other laboratory andclinical data available to the clinician.Xpert CT/NG performance has not been evaluated in patientsless than 14 years of age. The assay should not be used forthe evaluationof suspected sexual abuse or for other medico-legalindications. Additional testing is recommended in anycircumstance when false positive or false negative resultscould lead to adverse medical, social or psychologicalconsequences. 12/28/2022 6:28 PM EST 12/28/2022 6:36 PM EST Narrative [facility] - 12/29/2022 9:14 AM EST Vaginal us [facility] Exter nal Provider LAB MICROBIOLOGY - GENERAL ORDERABLES Final Result [facility] [address] [place] [address] [phone] * SureSwab?? Advanced Vaginitis, TMA (12/28/2022 6:28 PM EST) Trichomonas DNA Probe Negative Negative [facility] Gardnerella DNA Probe Negative Negative [facility] Emma DNA Probe Negative Negative [facility] 12/28/2022 6:28 PM EST 12/28/2022 6:36 PM EST [facility] Exter nal Provider LAB BODY FLUIDS AND STOOLS ORDERABLES Final Result Performing Organization Address [facility] de Phone Number [facility] [address] [place] [address] [phone] * Wet prep, genital (12/28/2022 6:28 PM EST) 12/28/2022 6:28 PM EST 12/28/2022 6:36 PM EST Comment:Vaginal Narrative [facility] - 12/28/2022 6:40 PM EST Trichomonas Prep Direct Microscopic Exam Trichomonas Prep No trichomonads or yeast seen Specimen Source: Vaginal [facility] Exter nal Provider LAB MICROBIOLOGY - GENERAL ORDERABLES Final Result Performing Organization Address [facility] de Phone Number [facility] [address] [place] [address] [phone] * Culture, Urine, Routine (12/28/2022 5:53 PM EST) 12/28/2022 5:53 PM EST 12/28/2022 5:53 PM EST Comment:UACC Narrative [facility] - 12/30/2022 12:23 PM EST Urine Culture Report Result Urine Culture 50,000 to 100,000 cfu/ml Urine Culture Mixed bacterial sarina characteristic of Urine Culture urogenital contamination. Strep agalactiae (Grp B) Quant < 10,000 cfu/mL Susc N/A Susceptibility not routinely performed on this isolate. Specimen Source: Urine clean catch [facility] Exter nal Provider LAB MICROBIOLOGY - GENERAL ORDERABLES Final Result Performing Organization Address [facility] de Phone Number [facility] [address] [place] [address] [phone] * (ABNORMAL) Urinalysis, Complete, with Reflex to Culture (12/28/2022 5:11 PM EST) Color Urine RED [facility] Appearance Urine Turbid [facility] PH 5.5 5.0 - 9.0 [facility] Glucose Urine UA Negative Negative mg/dL [facility] Urine Blood Large (3+)(A) Negative [facility] Specific Harold - Urine 1.020 1.005 - 1.025 [facility] Urine Protein 100 (2+)(A) Neg-Trace mg/dL [facility] Urine Ketones Trace Negative mg/dL [facility] Nitrite Urine Positive(A) Negative [facility] Leukocyte Esterase Urine Trace(A) Negative [facility] RBC Urine >20(A) 0 - 2 /HPF [facility] Urine WBC 0-5 0 - 5 /HPF [facility] Urine Squamous Epithelial Cell 0-2 0 - 2 /HPF [facility] Urine Bacteria Trace None Seen [facility] Hyaline Casts, Urine 0-2 0 - 2 /LPF [facility] 12/28/2022 5:11 PM EST 12/28/2022 5:14 PM EST Narrative [facility] - 12/28/2022 5:52 PM EST [id number], Clean Catch us [facility] External Provider LAB URI NE ORDERABLES Final Result [facility] [address] [place] [phone] * (ABNORMAL) CBC auto differential (12/28/2022 5:09 PM EST) White Blood Count 5.8 4.8 - 10.8 X10*3/uL [facility] Red Blood Count 3.19(L) 4.20 - 5.50 X10*6/uL [facility] Hemoglobin 9.5(L) 12.0 - 16.0 g/dl [facility] Hematocrit 29.2(L) 37.0 - 47.0 % [facility] Mean Corpuscular Volume 91.5 80.0 - 98.0 fL [facility] Mean Corpuscular Hemoglobin 29.8 27.0 - 33.0 pg [facility] Mean Corpuscular HGB Conc 32.5 31.0 - 35.0 g/dl [facility] Red Cell Distribution Width 13.9 11.0 - 16.0 % [facility] Platelet Count 211 160 - 400 X10*3/uL [facility] Mean Platelet Volume 10.5 9.4 - 12.3 fL [facility] Neutrophils Percent Auto 58.5 45 - 73 % [facility] Imm Gran Pct Auto 0.2 0.0 - 0.4 % [facility] Lymphocytes Percent Auto 32.9 20 - 40 % [facility] Monocytes Percent Auto 6.7 2 - 11 % [facility] Eosinophils Percent Auto 1.0 0 - 4 % [facility] Basophils Percent Auto 0.7 0 - 2 % [facility] NRBC Pct Auto 0.0 0.0 - 0.2 /100WBC [facility] Neutrophils Absolute Auto 3.4 2.0 - 8.3 x10*3/uL [facility] Imm Gran Abs Auto 0.01 0.00 - 0.03 X10*3/uL [facility] Lymphocytes Absolute Auto 1.9 1.2 - 4.9 X10*3/uL [facility] Monocytes Absolute Auto 0.4 0.1 - 1.2 X10*3/uL [facility] Eosinophils Absolute Auto 0.1 0.0 - 0.4 X10*3/uL [facility] Basophils Absolute Auto 0.0 0.0 - 0.2 X10*3/uL [facility] NRBC Abs Auto 0.000 0.0 - 0.012 X10*3/uL [facility] 12/28/2022 5:09 PM EST 12/28/2022 5:14 PM EST [facility] External Provider LAB BLO OD ORDERABLES Final Result Performing Organization Address [facility] Co de Phone Number [facility] [address] [place] [phone] * Red blood count (12/28/2022 5:08 PM EST) Red Blood Cells: [id number] AN RC TRANSFUSED 12/28/22 2258 [facility] 12/28/2022 5:08 PM EST 12/28/2022 5:16 PM EST [facility] External Provider LAB BLO OD ORDERABLES Final Result Performing Organization Address [facility] de Phone Number [facility] [address] [place] [phone] * Type and screen (12/28/2022 5:08 PM EST) Blood Type AN [facility] Antibody Screen NEGATIVE [facility] 12/28/2022 5:08 PM EST 12/28/2022 5:16 PM EST Narrative [facility] - 12/28/2022 11:54 PM EST Results at Issue Units as of 12/28/22 2300 ...Test View Group: Most Recent HGB HCT Results LABORATORYDate Time Test Result Flag Normal Range12/28/222154 HGB 9.1 L 12.0-16.0 g/dl12/28/225 HCT 27.8 L 37.0-47.0 % Hgb 7-9 gmNo [facility] External Provider LAB BLO OD BANK TEST ORDERABLES Final Result Performing Organization Address [facility] Co de Phone Number [facility] [address] [place] [address] [phone] * HCG, Total, Quantitative (12/28/2022 5:08 PM EST) HCG Quantitative <2 mIU/mL [facility] Comment:Weeks post LMP Appro ximate hCG(Last Menstrual Period) Range (mIU/ml)3 - 4 weeks 9 - 1304 - 5 weeks 75 - 2,6005 - 6 weeks 850 - 20,8006 - 7 weeks 4000 - 100,2007 - 12 weeks 11,500 - 289,44673 - 16 weeks 18,300 - 137,15124 - 29 weeks (2nd trimester) 1,400 - 53,10685 - 41 weeks (3rd trimester) 940 - 60,000The Arredondo B- hCG assay is used for the early detection ofpregnancy; it cannot be used to diagnose any conditionunrelated to . If a B-hCG level is not supportedby the clinical evidence, results should be confirmed by analternative method (qualitative urine hCG, for example). 12/28/2022 5:08 PM EST 12/28/2022 5:14 PM EST [facility] External Provider LAB BLO OD ORDERABLES Final Result Performing Organization Address [facility] Co de Phone Number [facility] [address] [place] [address] [phone] * (ABNORMAL) Comprehensive Metabolic Panel (12/28/2022 5:08 PM EST) Sodium 140 135 - 145 mmol/L [facility] Potassium 3.9 3.3 - 5.1 mmol/L [facility] Chloride 105 96 - 108 mmol/L [facility] Carbon Dioxide 25 22 - 29 mmol/L [facility] Anion Gap 14 12 - 20 [facility] Urea Nitrogen (BUN) 11 9 - 16 mg/dL [facility] Creatinine, Serum 0.70 0.5 - 1.4 mg/dL [facility] Creatinine Clr Calc Pharmacy 110.7 [facility] Comment:Provided height and weight: 162.56 cm,90.718 kg.eGFR (calculated from the MDRD study equation) and eCrCl(calculated from the Cockcroft-Gault equation) are based ondifferent parameters and may not yield comparable results.If eCrCl result is absurd, please check patient'sheight/weight. Estimated Glomerular Filt Rate >60 [facility] Comment:NOTE: For -Am erican individuals, multiply the result by 1.210.Chronic Kidney Disease: Estimated GFR < 60 mL/min/1.48m6Ynrzoz Kidney Disease: Estimated GFR < 15 mL/min/1.73m2 Glucose 96 60 - 115 mg/dL [facility] Calcium 8.0(L) 8.4 - 10.2 mg/dL [facility] Bilirubin, Total 0.5 0.0 - 1.0 mg/dL [facility] Aspartate Amino Transferase 14 5 - 31 U/L [facility] Alanine Aminotransferase 10 0 - 31 U/L [facility] Total Protein 6.1(L) 6.5 - 8.0 g/dL [facility] Albumin Level 3.7 3.5 - 5.0 g/dL [facility] Alkaline Phosphatase 40 39 - 117 U/L [facility] 12/28/2022 5:08 PM EST 12/28/2022 5:14 PM EST [facility] External Provider LAB BLO OD ORDERABLES Final Result [facility] [address] [place] [phone] documented in this encounter Visit Diagnoses Not on filedocumented in this encounter Care Teams Can Capper Relationship Specialty Start Date End Date Adair Jj MD [address] [place] [phone] PCP - General Internal Medicine 03/31/20 documented as of this encounter
--- OUTSIDE RECORDS SUMMARY | 2025-09-18 14:26 | XMS_ITS | Encounter Summary ---
Author Organization [employer] Address [address] [place] [address] [address] [place] [address] Care Team Providers Care Lacquer Sizer Name Role Phone Adair Jj MD Primary Care Prov ider Encounter Details Date Type Department Care Team ([facility] st Contact Info) Description 05/13/2025 Orders Only [facility] [address] [place], [place] [phone] Nori Contreras MD [address] [place] [address] Social History Tobacco Use Types Packs/Day Years [...] t he electric, gas, oil or water [employer] threatened to shut off services in your [...] Diagnosis Comments TSH W/REFLEX TO FT4 Routine 09/18/2025 1 2:09 PM EDT CBC Routine 09/18/2025 12:09 PM EDT documented in this encounter Results * TSH with Reflex to Free T4 (09/18/2025 12:09 PM EDT) TSH reflex Free T4 0.60 0.32 - 4.0 uIU/mL [facility] 09/18/2025 12:0 9 PM EDT 09/18/2025 12:12 PM EDT us Generic External Data Provider LAB BLOOD ORDERAB LES Final Result [facility] [address] [place] [phone] * (ABNORMAL) CBC (09/18/2025 12:09 PM EDT) White Blood Count 4.4(L) 4.8 - 10.8 X10*3/uL [facility] Red Blood Count 3.73(L) 4.20 - 5.50 X10*6/uL [facility] Hemoglobin 11.0(L) 12.0 - 16.0 g/dl [facility] Hematocrit 34.0(L) 37.0 - 47.0 % [facility] Mean Corpuscular Volume 91.2 80.0 - 98.0 fL [facility] Mean Corpuscular Hemoglobin 29.5 27.0 - 33.0 pg [facility] Mean Corpuscular HGB Conc 32.4 31.0 - 35.0 g/dl [facility] Red Cell Distribution Width 12.1 11.0 - 16.0 % [facility] Platelet Count 220 160 - 400 X10*3/uL [facility] Mean Platelet Volume 10.4 9.4 - 12.3 fL [facility] NRBC Pct Auto 0.0 0.0 - 0.2 /100WBC [facility] NRBC Abs Auto 0.000 0.0 - 0.012 X10*3/uL [facility] 09/18/2025 12:0 9 PM EDT 09/18/2025 12:12 PM EDT us Generic External Data Provider LAB BLOOD ORDERAB LES Final Result [facility] [address] [place] [address] [phone] documented in this encounter Visit Diagnoses Not on filedocumented in this encounter Additional Health Concerns Assessment Noted Time PHQ-9 Depression Total Score: 0 02/08/20 23 1:47 PM EDT documented as of this encounter Care Teams Lacquer Sizer Relationship Specialty Start Date End Date Adair Jj MD [address] [place] [phone] PCP - General Internal Medicine 03/31/20 documented as of this encounter
--- OUTSIDE RECORDS SUMMARY | 2025-09-18 14:26 | XMS_ITS | Clinical Summary ---
Author Organization [facility] Address [address] [place] [address] Care Team Providers Care Sheet Metal Worker Supervisor Name Role Phone Adair Jj MD Primary Care Prov ider Allergies No known active allergies Medications omeprazole (PriLOSEC) 20 mg capsule TAKE TWO CAPSULES BY MOUTH EVERY MORNING FOR ONE MONTH THEN take ONE CAPSULE EVERY MORNING 10/27/20 21 Active ferrous gluconate (FERGON) 324 mg (37.5 mg iron) tablet tablet TAKE ONE TABLET BY MOUTH EVERY DAY 10/27/20 21 Active calcitrioL (ROCALTROL) 0.5 mcg capsuleIndications:Hyp oparathyroidism, unspecified hypoparathyroidism type (HCC) TAKE ONE CAPSULE TWICE DAILY 60 capsule 5 01/22/20 25 Active cholecalciferol (VITAMIN D3) 1,250 mcg (50,000 unit) capsuleIndications:Hyp oparathyroidism, unspecified hypoparathyroidism type (HCC) TAKE ONE CAPSULE BY MOUTH EVERY TWO WEEKS 6 capsule 1 02/02/20 25 Active Active Problems Problem Noted Date Diagnosed Date Reflux esophagitis 11/06/2020 Dysphagia 05/07/2020 Vitamin D deficiency 08/17/2018 Excessive sweating 06/13/2017 Neck pain 05/10/2016 Left thyroid nodule 10/09/2015 Varicose veins 07/10/2015 Hypoparathyroidism 07/10/2015 Family History Medical History Relation Name Comments Other Other 1 Denied Family h istory of Calcium disorder Other Other 2 Denied Family H istory of malignant neoplasm Other Other 3 Denied Family H istory of diabetes mellitus Other Sister Family History of anemia Relation Name Status Comments Other 1 Other 2 Other 3 Sister Social History Tobacco Use Types Packs/Day Years Used Date Smoking Tobacco: Never Tobacco Cessation:Counseling Given: Not Answered Comments:: Alcohol Use Standard Drinks/Week Comments Never 0 (1 standard drink = 0.6 oz pur e alcohol) Comments Unknown Sex and Gender Information Value Date Recorded Sex Assigned at Female 07/22/2023 3:28 PM EDT Legal Sex Female 6:47 PM EDT Gender Identity Not on file Sexual Orientation Not on file Last Filed Vital Signs Vital Sign Reading Time Taken Comments Blood Pressure 116/78 01/11/2024 1:32 PM EST Pulse 80 01/11/2024 1:32 PM EST Temperature 36 C (96.8 F) 07/22/2022 8:24 AM EDT Respiratory Rate 16 07/22/2022 8:33 AM EDT Oxygen Saturation 95% 07/22/2022 8:33 AM EDT Inhaled Oxygen Concentration - - Weight 97.2 kg (214 lb 4.6 oz) 01/11/2024 1:32 P M EST Height 162.6 cm (5' 4 ) 01/11/2024 1:32 PM EST Body Mass Index 36.78 01/11/2024 1:32 PM EST Plan of Treatment Health Maintenance Due Date Last Done Comments Cervical Cancer Screening 1977 Cologuard 1977 Colon Cancer Screening 1977 Colonoscopy 1977 FOBT / Fit Test 1977 HIV Screening 1977 HPV and Pap Smear 1977 Hepatitis C Screening 1977 Pap Smear 1977 Sigmoidoscopy 1977 Hepatitis B Vaccines (1 of 3 - 19+ 3-dose series) 1996 Alcohol/Substance Use Screening 11/21/2024 Depression Screening and Follow-Up 11/21/2024 Social Drivers of Health Annual Screening 11/21/2024 COVID-19 Vaccine (4 - 2024-2 6 season) 2025 01/11/2022, 05/29/2021, 03/11/2021 Influenza Vaccine (#1) 2025 , 09/06/2014 Mammogram 12/27/2025 12/27/2023 DTaP,Tdap,and Td Vaccines (2 - Td or Tdap) 11/19/2026 11/19/2016 RSV Vaccine (60+ years old a nd patients) (1 - 1-dose 75+ series) 2052 Pneumococcal Vaccine: Pediatric (0-5 Years) and At-Risk Patients (6-50 Years) Aged Out No longer eligible based on patient's age to complete this topic Insurance [facility] HSNO/FREE CARE Care Teams Sheet Metal Worker Supervisor Relationship Specialty Start Date End Date Adair Jj MD [address] [place] [phone] PCP - General 07/22/23
--- OUTSIDE RECORDS SUMMARY | 2025-09-18 14:26 | XMS_ITS | Clinical Summary ---
Author Organization [employer] Address [address] [place] [address] [address] [place] [address] Care Team Providers Care Skydiving Instructor Name Role Phone Adair Jj MD Primary Care Prov ider Allergies No known active allergies Medications ferrous gluconate (Fergon) 324 (38 Fe) MG tabletIndications:Iro n deficiency anemia secondary to inadequate dietary iron intake TAKE ONE TABLET DAILY 90 tablet 1 023 Active calcitriol (Rocaltrol) 0.5 MCG capsuleIndications:Ot her hypoparathyroidism due to impaired secretion of parathyroid hormone (PTH) Take 1 capsule (0.5 mcg) by mouth every 12 (twelve) hours. 180 capsule 3 025 Active cholecalciferol (Vitamin D-3) 1.25 MG (17041 UT) capsuleIndications:Vi tamin D deficiency TAKE ONE CAPSULE BY MOUTH TWICE A WEEK 24 capsule 11 025 Active Ferrous Sulfate (iron) 325 (65 Fe) MG tablet TAKE ONE TABLET EVERY MORNING WITH BREAKFAST 90 tablet 3 025 Active Ferrous Sulfate (iron) 325 (65 Fe) MG tablet TAKE ONE TABLET EVERY DAY WITH BREAKFAST 90 tablet 3 024 2024 Discontinued Active Problems Problem Noted Date Diagnosed Date Acute pain of right knee 07/18/2023 Assessment & Plan (07/18/2023 2:51 PM EDT): Patient was visiting [place] 2 weeks ago, she slip on a rock and twisted her knee, MRI was done (patient has disc), with torn ligament, told to elevate extremity, rest, apply ice, continue tylenol/ibuprofen for pain and will refer to ortho for evaluation Iron deficiency anemia due to chronic blood loss 02/07/2023 Assessment & Plan (02/07/2023 2:20 PM EDT): Patient taking oral iron replacement, refer her vaginal bleeding improved after IUD insertion, will follow up in 3 months with new labs to evaluate iron levels Colon cancer screening 02/07/2023 Assessment & Plan (02/07/2023 2:20 PM EDT): Will refer to GI for screening colonoscopy Menorrhagia with regular cycle 12/27/2022 Microcytic anemia 10/25/2021 Overview (12/27/2022): Last Assessment & Plan: No signs or symptoms of acute bleeding. It seems that this is likely an iron deficiency anemia from menorrhagia. Labs are pending to confirm the iron deficiency. Because of her concern for ACS we are transfusing 2 units. Gastroesophageal reflux disease with esophagitis 11/06/2020 Overview (12/27/2022): Last Assessment & Plan: She takes NSAIDs regularly. Gastritis is a possibility for her pain, but seems less likely than ACS. Given IV PPI in the emergency department. I will continue with Protonix 40 mg twice daily and I will also give Carafate. Hypoparathyroidism 03/06/2015 Vitamin D deficiency 02/18/2015 Encounters Date Type Department Care Team Description 08/19/2025 Refill [facility] [address] [place] [address] Adair Jj MD from Last 3 Months Immunizations Immunization Administration Dates Next Due Influenza injectable quadrivalent preservative f ree 10/27/2021 Pfizer Covid-19 Vaccine 12+ 05/29/2021, Tdap 11/19/2016 Social History Tobacco Use Types Packs/Day Years Used Date Smoking Tobacco: Never Smokeless Tobacco: Never Tobacco Cessation:Counseling Given: Not Answered Alcohol Use Standard Drinks/Week Comments Never 0 [...] Don't know 09/20/2022 10 :26 AM EDT Last Filed Vital Signs Vital Sign Reading Time Taken Comments Blood Pressure 114/71 05/08/2025 3:25 PM EDT Pulse 72 05/08/2025 3:25 PM EDT Temperature 36.6 C (97.9 F) 05/08/2025 3:25 PM EDT Respiratory Rate 20 05/08/2025 3:25 PM EDT Oxygen Saturation 98% 05/08/2025 3:25 PM EDT Inhaled Oxygen Concentration - - Weight 87.1 kg (192 lb) 05/08/2025 3:25 PM EDT Height 165.1 cm (5' 5 ) 05/08/2025 3:25 PM EDT Body Mass Index 31.95 05/08/2025 3:25 PM EDT Plan of Treatment Health Maintenance Due Date Last Done Comments CT Colonography 1977 Colonoscopy 1977 Colorectal Cancer Screening 1977 FIT DNA/Cologuard 1977 FIT 1977 FOBT 1975 HIV Screening 1975 Sigmoidoscopy 1977 Disability Screening 1977 Alcohol/Substance Use Screening 1989 Family Planning (PISQ) 1992 Hepatitis C Screening 1995 Hepatitis B Vaccines (1 of 3 - 19+ 3-dose series) 1996 Tobacco Screening 12/27/2023 12/27/2022 Depression Screening 02/08/2024 02/07/2023, 02/08/20 23 SDOH Screening 02/08/2024 02/07/2023 COVID-19 Vaccine ( season) 2025 01/11/2022, 05/29/2021, 05/29/2021, Additional history exists Influenza Vaccine (#1) 2025 10/27/2021, 2013 Mammogram 12/27/2025 12/27/2023, 02/04/2024, 01/06/2023 DTaP/Tdap/Td Vaccines (2 - Td or Tdap) 11/19/2026 11/19/2016 Cervical Cancer Screening 02/16/2027 HPV/Cotest 02/16/2027 02/16/2022 Pap Smear 02/16/2027 02/16/2022 Zoster Vaccines (1 of 2) 2027 RSV Patients and Patients Aged 60 years or older (1 - 1-dose 75+ series) 2052 HIB Vaccines Aged Out No longer eligi ble based on patient's age to complete this topic HPV Vaccines Aged Out No longer eligi ble based on patient's age to complete this topic Hepatitis A Vaccines Aged Out No long er eligible based on patient's age to complete this topic IPV Vaccines Aged Out No longer eligi ble based on patient's age to complete this topic Meningococcal B Vaccine Aged Out No l onger eligible based on patient's age to complete this topic Meningococcal Vaccine Aged Out No kevin brittany eligible based on patient's age to complete this topic Pneumococcal Vaccine: Pediatrics (0 to 5 Years) and At-Risk Patients (6 to 49) Years Aged Out No longer eligible based on patient's age to complete this topic RSV under 20 months Aged Out No longe r eligible based on patient's age to complete this topic Rotavirus Vaccines Aged Out No longer eligible based on patient's age to complete this topic Procedures Procedure Name Priority Date/Time Associated Diagnosis Comments TSH W/REFLEX TO FT4 Routine 09/18/2025 1 2:09 PM EDT CBC Routine 09/18/2025 12:09 PM EDT BI MAMMOGRAM DIAGNOSTIC TOMOSYNTHESIS BILATERAL Routine 12/27/2023 3:25 PM EST HM PAP/HPV Routine 02/16/2022 from Last 3 Months or Most Recently Relevant to Health Maintenance Results * TSH with Reflex to Free T4 (09/18/2025 12:09 PM EDT) TSH reflex Free T4 0.60 0.32 - 4.0 uIU/mL [facility] 09/18/2025 12:0 9 PM EDT 09/18/2025 12:12 PM EDT us Generic External Data Provider LAB BLOOD ORDERAB LES Final Result [facility] [address] [place] [phone] * (ABNORMAL) CBC (09/18/2025 12:09 PM EDT) White Blood Count 4.4(L) 4.8 - 10.8 X10*3/uL [facility] Red Blood Count 3.73(L) 4.20 - 5.50 X10*6/uL [facility] Hemoglobin 11.0(L) 12.0 - 16.0 g/dl [facility] Hematocrit 34.0(L) 37.0 - 47.0 % [facility] Mean Corpuscular Volume 91.2 80.0 - 98.0 fL [facility] Mean Corpuscular Hemoglobin 29.5 27.0 - 33.0 pg [facility] Mean Corpuscular HGB Conc 32.4 31.0 - 35.0 g/dl [facility] Red Cell Distribution Width 12.1 11.0 - 16.0 % [facility] Platelet Count 220 160 - 400 X10*3/uL [facility] Mean Platelet Volume 10.4 9.4 - 12.3 fL [facility] NRBC Pct Auto 0.0 0.0 - 0.2 /100WBC [facility] NRBC Abs Auto 0.000 0.0 - 0.012 X10*3/uL [facility] 09/18/2025 12:0 9 PM EDT 09/18/2025 12:12 PM EDT us Generic External Data Provider LAB BLOOD ORDERAB LES Final Result Performing Organization Address City/State/[facility] Co de Phone Number [facility] [address] [place] [phone] * BI Mammogram Diagnostic Tomosynthesis Bilateral (12/27/2023 3:25 PM EST) Anatomical Region Laterality Modality Breast Bilateral Mammography 12/27/2023 3:25 PM EST Narrative 12/27/2023 5:21 PM EST [address] [place] [address] Mammography Report Signed Patient: Umm Andersen MR#: [id number] : 1975 Acct:[id number] Age/Sex: 48 / F ADM Date: 12/27/23 Loc: MAMMO Attending Dr: Geena Clark CNM Ordering Physician: Geena Clark CNM Results: 2Benign Findings Date of Service: 12/27/23 Follow Up: 1 Year From Orig inal Mammogram Procedure(s): MM tomosynthesis diagnostic BI Accession Number(s): [id number] cc: Adair Jj MD; Geena Clark CNM EXAMINATION: MM DIAGNOSTIC DIGITAL BREAST TOMOSYNTHESIS, BILATERAL US BREAST LIMITED, LEFT MAMMOGRAPHY: CLINICAL INFORMATION: 1 year follow-up (for two-year total stability) complicated cyst left breast 11:00 axis, anterior one third. Patient also due for routine bilateral screening. COMPARISON: 01/06/2023 mammography and left ultrasound, 01/06/2022 (BI-RADS 0) mammography and left ultrasound, and 07/08/2022 left breast ultrasound. TECHNIQUE: Digital breast tomosynthesis is performed in both the craniocaudal and mediolateral oblique views along with computer-aided detection (CAD). Synthesized 2D images are generated from the tomosynthesis. In addition to standard views, spot compression 3-D right MLO view was obtained, as well as a full-field left mediolateral 3-D view. FINDINGS: The breasts are heterogeneously dense, which may obscure small masses (ACR BI-RADS breast composition Category c). There are no suspicious masses, suspicious grouped calcifications, or areas of architectural distortion in either breast. The heterogeneously dense somewhat nodular parenchymal pattern is stable from prior exams. There are no skin or axillary abnormalities. Within the 11:00 axis of the left breast, anterior one third, there is a 6 mm oval circumscribed mass 3 cm from the nipple, consistent with the known probably benign complicated cyst. This is unchanged in size and morphology on mammography. ULTRASOUND: CLINICAL INFORMATION: 1 year Follow-up left breast complicated cyst for two-year stability. COMPARISON: As above. TECHNIQUE: Targeted sonographic evaluation was performed using a high frequency linear transducer. Attention was given to the left breast 11:00 axis III cm from the nipple, in the region of known complicated cyst. Selected archived documentation. FINDINGS: LEFT BREAST: -There is a slightly smaller triangular-shaped complicated cyst in the 11:00 axis of the left breast, 3 cm from the nipple, measuring 6 x 3 x 4 mm. This has good through transmission and a small amount of internal specular debris. No internal color Doppler flow. It has remained stable to slightly smaller in size, and otherwise stable in morphology when compared with 01/06/2022. Two-year stability is established, and no further follow-up is recommended for this benign finding. MM/MM tomosynthesis diagnostic BI IMPRESSION: There are no findings suspicious for malignancy in either breast. Essentially stable complicated left breast cyst at the 11:00 axis, 3 cm from the nipple. This demonstrates two-year stability and is a benign finding. No further follow-up recommended. Recommend the patient resume routine annual screening mammography. OVERALL ASSESSMENT: Mammography: BI-RADS 2 - Benign Findings Ultrasound: BI-RADS 2 - Benign Findings RECOMMENDATION: 1 year F/U Results were provided to the patient at time of visit by the technologist. This patient's information was entered into a reminder system with a target due date for their next mammogram. Dictated By: Uri Mcintyre MD Signed By: <Electronically signed by Uri Mcintyre MD in OV> 12/27/23 1718 DD/ 1525 TD/TT: Air Route Traffic Controller: Procedure Note Donotuseinterpreter, Image - 12/27/2023 [facility] [address] [place] [address] Mammography Report Signed Patient: Kala Andersen#: [id number] : 1975Acct:[id number] Age/Sex: 48 / FADM Date: 12/27/23 Loc: HO.MAMMO Attending Dr: Geena Clark CNM Ordering Physician: Geena Clarkesults: 2Benign Findings Date of Service: 12/27/23Follow Up: 1 Year From Orig inal Mammogram Procedure(s): MM tomosynthesis diagnostic BI Accession Number(s): [id number] cc: Adair Jj MD; Geena Clark CNM EXAMINATION: MM DIAGNOSTIC DIGITAL BREAST TOMOSYNTHESIS, BILATERAL US BREAST LIMITED, LEFT MAMMOGRAPHY: CLINICAL INFORMATION: 1 year follow-up (for two-year total stability) complicated cyst left breast 11:00 axis, anterior one third. Patient also due for routine bilateral screening. COMPARISON: 01/06/2023 mammography and left ultrasound, 01/06/2022 (BI-RADS 0) mammography and left ultrasound, and 07/08/2022 left breast ultrasound. TECHNIQUE: Digital breast tomosynthesis is performed in both the craniocaudal and mediolateral oblique views along with computer-aided detection (CAD). Synthesized 2D images are generated from the tomosynthesis. In addition to standard views, spot compression 3-D right MLO view was obtained, as well as a full-field left mediolateral 3-D view. FINDINGS: The breasts are heterogeneously dense, which may obscure small masses (ACR BI-RADS breast composition Category c). There are no suspicious masses, suspicious grouped calcifications, or areas of architectural distortion in either breast. The heterogeneously dense somewhat nodular parenchymal pattern is stable from prior exams. There are no skin or axillary abnormalities. Within the 11:00 axis of the left breast, anterior one third, there is a 6 mm oval circumscribed mass 3 cm from the nipple, consistent with the known probably benign complicated cyst. This is unchanged in size and morphology on mammography. ULTRASOUND: CLINICAL INFORMATION: 1 year Follow-up left breast complicated cyst for two-year stability. COMPARISON: As above. TECHNIQUE: Targeted sonographic evaluation was performed using a high frequency linear transducer. Attention was given to the left breast 11:00 axis III cm from the nipple, in the region of known complicated cyst. Selected archived documentation. FINDINGS: LEFT BREAST: -There is a slightly smaller triangular-shaped complicated cyst in the 11:00 axis of the left breast, 3 cm from the nipple, measuring 6 x 3 x 4 mm. This has good through transmission and a small amount of internal specular debris. No internal color Doppler flow. It has remained stable to slightly smaller in size, and otherwise stable in morphology when compared with 01/06/2022. Two-year stability is established, and no further follow-up is recommended for this benign finding. MM/MM tomosynthesis diagnostic BI IMPRESSION: There are no findings suspicious for malignancy in either breast. Essentially stable complicated left breast cyst at the 11:00 axis, 3 cm from the nipple. This demonstrates two-year stability and is a benign finding. No further follow-up recommended. Recommend the patient resume routine annual screening mammography. OVERALL ASSESSMENT: Mammography: BI-RADS 2 - Benign Findings Ultrasound: BI-RADS 2 - Benign Findings RECOMMENDATION: 1 year F/U Results were provided to the patient at time of visit by the technologist. This patient's information was entered into a reminder system with a target due date for their next mammogram. Dictated By: Uri Mcintyre MD Signed By: <Electronically signed by Uri Mcintyre MD in OV> 12/27/23 1717 DD/ 1525 TD/TT: Air Route Traffic Controller: [facility] External Provider IMG BI PROCEDURES Final Result * Hm Pap Smear (02/16/2022) Pap Negative for intraephithelial lesion or malignancy Negative for intraephithelial lesion or malignancy, Other HPV Undetected Undetected, Indeterminate, Quantitative, Not Detected Historical Provider HEALTH MAINTENANCE Final Result from Last 3 Months or Most Recently Relevant to Health Maintenance Insurance [email or web address] [facility] FULL Care Teams Skydiving Instructor Relationship Specialty Start Date End Date Adair Jj MD [address] [place] [phone] PCP - General Internal Medicine 03/31/20
== END 2025-09-18 12:03 | disposition home or self-care (01) ==
LOC: HO.HWS 11:20
PROVIDERS: PCP Internal Medicine; Visit Provider Obstetrics & Gynecology
DX: N93.9 Abnormal uterine and vaginal bleeding, unspecified (principal)
CPT/HCPCS: 99213

== ENCOUNTER 2025-09-18 11:20 | Outpatient (REF) | payer MEDICAID, OTHER, SELFPAY ==
[2025-09-18 23:49] LABS: CT PCR NOT DETECTED (Not Detect.); NG PCR NOT DETECTED (Not Detect.)
== END 2025-09-18 11:21 | disposition home or self-care (01) ==
LOC: HO.LNP 11:20
PROVIDERS: PCP Internal Medicine; Visit Provider Obstetrics & Gynecology
DX: N93.9 Abnormal uterine and vaginal bleeding, unspecified (principal); Z20.2 Contact with and (suspected) exposure to infections with a predominantly sexual mode of transmission
CPT/HCPCS: 87491; 87591; 99212

== ENCOUNTER 2025-09-18 11:53 | Outpatient (REF) | payer SELFPAY ==
[2025-09-18 12:27] LABS: Hematocrit 34.0 % (37.0-47.0); Hemoglobin 11.0 g/dl (12.0-16.0); Mean Corpuscular HGB Conc 32.4 g/dl (31.0-35.0); Mean Corpuscular Hemoglobin 29.5 pg (27.0-33.0); Mean Corpuscular Volume 91.2 fL (80.0-98.0); NRBC Abs Auto 0.000 X10*3/uL (0.0-0.012); NRBC Pct Auto 0.0 /100WBC (0.0-0.2); Platelet Count 220 X10*3/uL (160-400); Red Blood Count 3.73 X10*6/uL (4.20-5.50); White Blood Count 4.4 X10*3/uL (4.8-10.8)
--- OUTSIDE RECORDS SUMMARY | 2025-09-18 15:20 | XMS_ITS | Clinical Summary ---
Author Organization [facility] Address [address] [place] [address] Phone Care Team Providers Care Cyber Forensics Analyst Name Role Phone Adair Jj MD Primary Care Prov ider Allergies No known active allergies Medications calcitriol (ROCALTROL) 0.5 MCG capsule Take 0.5 mcg by mouth 2 (two) times a day. Active loratadine (CLARITIN) 10 mg tablet Take 10 mg by mouth daily as needed. Active acetaminophen (TYLENOL) 325 mg tablet Take 325 mg by mouth every 6 (six) hours as needed. Active cholecalciferol (VITAMIN D3) 50,000 unit capsule Take 50,000 Units by mouth every 14 (fourteen) days. 11 06/26/2019 Active lidocaine (LIDODERM) 5 % Place 1 patch onto the skin daily. Remove & Discard patch within 12 hours or as directed by 30 patch 08/29/2019 Active calcium carbonate (OS-AMARI) 1,250 mg (500 mg elemental) tablet Take 1 tablet by mouth 2 (two) times a day. Active aluminum-magnes ium hydroxide-simet hicone (MAALOX) 200-200-20 mg/5 mL Susp Take 30 mL by mouth every 6 (six) hours as needed (heartburn). 150 mL 10/27/2021 Active ferrous gluconate 324 mg (38 mg elemental) tablet Take 1 tablet (324 mg total) by mouth daily. 30 tablet 10/28/2021 Active omeprazole (PRILOSEC) 20 mg TbEC Take 2 tablets (40 mg total) by mouth daily before breakfast. For one month, then one a day 60 tablet 10/27/2021 Active Active Problems Problem Noted Date Diagnosed Date Microcytic anemia 10/25/2021 Assessment & Plan (10/25/2021 1:28 AM EST): No signs or symptoms of acute bleeding. It seems that this is likely an iron deficiency anemia from menorrhagia. Labs are pending to confirm the iron deficiency. Because of her concern for ACS we are transfusing 2 units. Gastro-esophageal reflux disease with esophagiti s 11/06/2020 Assessment & Plan (10/25/2021 1:30 AM EST): She takes NSAIDs regularly. Gastritis is a possibility for her pain, but seems less likely than ACS. Given IV PPI in the emergency department. I will continue with Protonix 40 mg twice daily and I will also give Carafate. Resolved Problems Problem Noted Date Diagnosed Date Resolved Date Other chest pain 10/25/2021 10/27/2021 Overview (10/27/2021): Normal coronaries on cardiac cath 10-26-21 Assessment & Plan (10/25/2021 1:28 AM EST): We will give aspirin, atorvastatin and Lopressor. Case discussed with the methods specialist engineer. Cardiology recommended against heparin because of her significant anemia. Immunizations Immunization Administration Dates Next Due COVID-19 (Pre-09/12) Pfizer Vaccine, mRNA, PF ,03/11/2021 INFLUENZA, SPLIT VIRUS, TRIVALENT PF 09/06/2014 Influenza Quadrivalent Preservative Free IM 05/2021 Tdap 11/19/2016 Family History Medical History Relation Comments Anemia Father Deep vein thrombosis Father Hypertension Mother Varicose veins Mother Relation Status Comments Father Alive Mother Alive Social History Tobacco Use Types Packs/Day Years Used Date Smoking Tobacco: Never Smokeless Tobacco: Never Alcohol Use Standard Drinks/Week Comments No 0 (1 standard drink = 0.6 oz pur e alcohol) Education Answer Date Recorded Are you interested in more education? Not on renaldo e 03/18/2023 Are you concerned about learning? Not on file 03/18/2023 No 03/18/2023 No 03/18/2023 Digital Access Answer Date Recorded No 04/15/2023 No 04/15/2023 Reliable internet access at home? Not on file 04/15/2023 Device with a working camera? Not on file Comments No Sex and Gender Information Value Date Recorded Sex Assigned at Female 02/07/2018 3:43 PM EDT Legal Sex Female 9:26 PM EDT Gender Identity Female 02/07/2018 3:43 PM EDT Sexual Orientation Straight 02/07/2018 3: 43 PM EDT Last Filed Vital Signs Vital Sign Reading Time Taken Comments Blood Pressure 113/75 10/27/2021 7:46 AM EST Pulse 62 10/27/2021 7:46 AM EST Temperature 36.9 C (98.4 F) 10/27/2021 7:46 AM EST Respiratory Rate 14 10/27/2021 7:46 AM EST Oxygen Saturation 93% 10/27/2021 7:46 AM EST Inhaled Oxygen Concentration - - Weight 96.2 kg (212 lb 1.6 oz) 10/25/2021 1:00 P M EST Height 162.6 cm (5' 4 ) 10/25/2021 1:00 PM EST Body Mass Index 36.41 10/25/2021 1:00 PM EST Plan of Treatment Health Maintenance Due Date Last Done Comments DEPRESSION SCREENING 1989 HEPATITIS C SCREENING 1995 HIV ONE-TIME SCREENING (18-6 5 YEARS) 1995 MAMMOGRAM 2017 COLOGUARD 2022 COLONOSCOPY 2022 COLORECTAL CANCER SCREENING 2022 FIT TEST 2022 FOBT 2022 SIGMOIDOSCOPY 2022 VIRTUAL COLONOSCOPY 2022 PAP SMEAR 06/15/2024 06/15/2021 INFLUENZA VACCINE (#1) 2025 , 09/06/2014 COVID-19 VACCINE (2 6 season) 2025 05/29/2021, 03/11/2021 LIPID PANEL 10/26/2026 10/26/2021 Adult Td,Tdap Booster 11/19/2026 11/19/2016 SMOKING STATUS SCREENING (On ce After 26 Yrs) Completed 10/25/2021 HEPATITIS A VACCINES Aged Out No long er eligible based on patient's age to complete this topic HIB VACCINES Aged Out No longer eligi ble based on patient's age to complete this topic MENINGOCOCCAL VACCINES (ACWY) Aged Out No longer eligible based on patient's age to complete this topic MENINGOCOCCAL VACCINES (B) Aged Out N o longer eligible based on patient's age to complete this topic PNEUMOCOCCAL VACCINES (0-49 years) Aged Out No longer eligible b ased on patient's age to complete this topic Medical Devices Not on file Procedures Procedure Name Priority Date/Time Associated Diagnosis Comments LIPID PANEL Routine 10/26/2021 5:44 AM EST PAP TEST Routine 06/15/2021 12:00 AM EDT from Last 3 Months or Most Recently Relevant to Health Maintenance Results * (ABNORMAL) Lipid panel (10/26/2021 5:44 AM EST) HDL 60 mg/dL [facility] Comment: Interpretation <40 mg/dL: Low HDL cholesterol (major risk factor for CHD) Greater than or equal to 60 mg/dL: High HDL cholesterol ( negative risk factor for CHD) HDL - cholesterol is affected by a number of factors, e.g. smoking, excerise, hormones, sex and age. CHOLESTEROL 133 0 - 240 mg/dL [facility] TRIGLYCERIDES 72 30 - 160 mg/dL [facility] LDL 59 50 - 129 mg/dL [facility] Comment: LDL levels in terms of risk for coronary heart disease: <100 mg/dL: Optimal 100-129 mg/dL: Near or above optimal 130-159 mg/dL: Borderline high 160-189 mg/dL: High >190 mg/dL: Very High CARDIAC RISK RATIO 2.2(L) 3.3 - 4.4 [facility] Blood 10/26/2021 5:44 AM EST 10/26/2021 6:20 AM EST us Pawel De Paz DO LAB BLOOD ORDERABLES Final Re sult [address] [address] * Pap Smear (06/15/2021 12:00 AM EDT) 06/15/2021 06/16/2021 8:4 0 AM EDT Narrative SEE NARRATIVE - 06/18/2021 3:08 PM EDT [address] [address] Counter Manager: Lesia Johnson MD AIRPORT RAMP AGENT Cytology Report FINAL DIAGNOSIS A. PAP SMEAR (SUREPATH) CE: SPECIMEN ADEQUACY: Satisfactory for evaluation; transformation zone present. INTERPRETATION: NEGATIVE FOR INTRAEPITHELIAL LESION OR MALIGNANCY. Reactive changes. Reactive cellular changes associated with intrauterine contraceptive device. Electronically Signed Out By: MD Julio Rowe CT(ASCP) By his/her signature above, the pathologist listed as making the Final Diagnosis certifies that he/she has personally reviewed this case and confirmed or corrected the diagnosis. The Pap test is a screening test primarily for squamous cancers and precursors and has associated false-negative and false-positive results. New technologies such as liquid-based preparations may decrease but will not eliminate all false-negative results. Regular sampling and follow-up of unexplained clinical signs and symptoms are recommended to minimize false negative results. PROCEDURES/ADDENDA HPV Testing (Requested) Ordered Date: 06/16/2021 A. PAP SMEAR (SUREPATH) CE: Human Papilloma Virus Test Negative for high-risk human papillomavirus types 16, 18, 45 and the Other high risk probe set (Includes 31, 33, 35, 39, 51, 52, 56, 58, 59, 66, 68) by [employer] Onclarity HR-HPV analysis. Clinical correlation is advised. This HPV test was performed at [facility], [address] [place] [address]. This test has been FDA approved for SurePath cervical cytology specimens. The accuracy and precision of this test for all other specimen sources has been verified in the Cytopathology Laboratory of the [facility] and has not been cleared or approved by the U.S. Food and Drug Administration. Clinical correlation is advised. CLINICAL HISTORY Date of Last Menstrual Period: 06-10-2021 Contraceptive History: IUD Other Clinical Conditions: Screening Pap SPECIMEN SOURCE A: PAP SMEAR (SUREPATH) CE Patient Name: UMM CRUZ : 1975 (Age: 45) Sex: F Institution: [facility] Location: [facility] Date of Collection: 06/15/2021 Date of Reported: 06/18/2021 15:07 Results to: Lilian Vizcarra MSN, BS Lilian Vizcarra CLIENT SERVICE AND CONSULTING MANAGER CYTOLOGY ORDERABLES Edited Res ult - Final SEE NARRATIVE from Last 3 Months or Most Recently Relevant to Health Maintenance Insurance [employer] NET FULL [employer] NET FULL [employer] LIMITED SAFETY NET FULL [employer] LIMITED SAFETY NET FULL [employer] LIMITED SAFETY NET FULL [employer] LIMITED SAFETY NET FULL [employer] LIMITED SAFETY NET FULL [employer] LIMITED HEALTH SAFETY NET FULL [facility] LIMITED HEALTH SAFETY NET FULL Advance Directives For more information, please contact: [phone] (9AM - 5PM [place], Tuesday-Tuesday) * Full Code (Latest Code Status on File) Date Activated Date Inactivated Comments 10/25/2021 7:48 AM Question Answer Comments Code Status Confirmed With: PatientFamily Care Teams Cyber Forensics Analyst Relationship Specialty Start Date End Date Adair Jj MD [address] [place] [id number] PCP - General Internal Medicine 10/27/21 Additional Source Comments The information contained in this document represents components of the legal health record. It is not the complete legal health record.[facility]
--- OUTSIDE RECORDS SUMMARY | 2025-09-18 15:20 | XMS_ITS | Encounter Summary ---
Author Organization [facility] Address [address] [place] [address] Phone Care Team Providers Care Technical Rep Name Role Phone Unknown, Unknown Primary Care Provider Zoe egan Pcp, Unknown Primary Care Provider Unavailabl e Pcp, Unknown Primary Care Provider Unavailnayely e Adair Jj MD Primary Care Prov ider Encounter Details Date Type Department Care Team (Late st Contact Info) Description 02/07/2018 Procedure Pass [facility], Ct Scan - [address] [address] Social History Tobacco Use Types Packs/Day Years [...] Orientation Straight 02/07/2018 3: 43 PM EDT documented as of this encounter Plan of Treatment Not on file documented as of this encounter Visit Diagnoses Not on filedocumented in this encounter Care Teams Technical Rep Relationship Specialty Start Date End Date Unknown, Unknown, PCP - General 02/07/18 07/20/20 Pcp, Unknown PCP - General 07/21/20 05/04/21 Pcp, Unknown PCP - General 05/05/21 10/26/21 Adair Jj MD [address] [place] [phone] PCP - General Internal Medicine 10/27/21 documented as of this encounter Additional Source Comments The information contained in this document represents components of the legal health record. It is not the complete legal health record.[facility]
--- OUTSIDE RECORDS SUMMARY | 2025-09-18 15:20 | XMS_ITS | Encounter Summary ---
Author Organization [facility] Address [address] [place] [address] Phone Care Team Providers Care Shoe Worker Name Role Phone Pcp, Unknown Primary Care Provider Unavailabl e Adair Jj MD Primary Care Prov ider Encounter Details Date Type Department Care Team (Late st Contact Info) Description 10/26/2021 Procedure Pass [facility] [address] [place] [address] Social History Tobacco Use Types Packs/Day Years Used Date Smoking Tobacco: Never Smokeless Tobacco: Never Alcohol Use Standard Drinks/Week Comments No 0 (1 standard drink = 0.6 oz pur e alcohol) Comments No Sex and Gender Information Value [...] on filedocumented in this encounter Care Teams Shoe Worker Relationship Specialty Start Date End Date Pcp, Unknown PCP - General 05/05/21 10/26/21 Adair Jj MD [address] [place] [address] PCP - General Internal Medicine 10/27/21 documented as of this encounter Additional Source Comments The information contained in this document represents components of the legal health record. It is not the complete legal health record.[facility]
[2025-09-19 03:14] LABS: Follicle Stimulating Hormone 44.6 mIU/mL
== END 2025-09-18 11:54 | disposition home or self-care (01) ==
LOC: HO.LAB 11:53
PROVIDERS: Visit Provider Obstetrics & Gynecology
DX: N93.9 Abnormal uterine and vaginal bleeding, unspecified (principal); Z13.29 Encounter for screening for other suspected endocrine disorder
CPT/HCPCS: 36415; 83001; 83002; 84443; 85027

== ENCOUNTER → 2025-10-14 08:00 | Outpatient (BNV) | payer MEDICAID, SELFPAY | PROVIDERS: PCP Internal Medicine; Visit Provider Radiology Body Imaging | DX: Z12.31 Encounter for screening mammogram for malignant neoplasm of breast (principal) | CPT/HCPCS: 77063; 77067 ==

== ENCOUNTER 2025-10-14 08:07 | Outpatient (REF) | payer MEDICAID, OTHER, SELFPAY ==
--- NOTE | ~2025-10-14 | MM_ITS ---
EXAMINATION: MM SCREENING DIGITAL BREAST TOMOSYNTHESIS, BILATERAL CLINICAL INFORMATION: Screening. Asymptomatic. COMPARISON: Comparison made to multiple prior, most recent bilateral diagnostic mammogram on December 27, 2023, and most remote January 06, 2022. TECHNIQUE: Digital breast tomosynthesis is performed in mediolateral oblique and craniocaudal views along with computer-aided detection (CAD). Synthesized 2D images are generated from the tomosynthesis. FINDINGS: BREAST COMPOSITION: The breasts are heterogeneously dense, which may obscure small masses. BILATERAL BREASTS: No significant masses, suspicious calcifications or other abnormalities are seen in either breast. MM/MM tomosynthesis screening BI IMPRESSION: BILATERAL BREASTS: Negative, no mammographic evidence of malignancy. Normal interval follow-up is recommended in 12 months. ASSESSMENT: BI-RADS: Category 1: Negative RECOMMENDATION: Routine annual mammography screening. FOLLOW-UP: 1 year F/U This examination should not preclude the clinical evaluation of a suspicious palpable abnormality. This patient's information was entered into a reminder system with a target due date for their next mammogram. Electronically signed by: Jaelyn Michael MD 10/15/2025 08:43 AM EST
--- OUTSIDE RECORDS SUMMARY | 2025-10-14 08:15 | XMS_ITS | Encounter Summary ---
Author Organization [employer] Address [address] [place] [address] 7 [place] [address] Care Team Providers Care Finisher Denture Name Role Phone Adair Jj MD Primary Care Prov ider Reason for Visit * Reason Onset Date Comments Referral 10/17/2023 Encounter Details Date Type Department Care Team ([facility] st Contact Info) Description 10/17/2023 Telephone [facility] MED & PEDS [address] [place], [place] [phone] Adair Jj MD [address] [place] [address] Referral Social History Tobacco Use Types Packs/Day [...] Yamila Perry - 10/19/2023 4:44 PM EST Plot Projects is only accepted at [facility]. * Telephone Encounter - Fercho [...] at this time. Please contact Daughter at [phone] documented in this encounter Plan of Treatment Not on file documented as of this encounter Visit Diagnoses Not on filedocumented in this encounter Additional Health Concerns Assessment Noted Time PHQ-9 Depression Total Score: 0 02/08/20 23 1:47 PM EDT documented as of this encounter Care Teams Finisher Denture Relationship Specialty Start Date End Date Adair Jj MD [address] [place] [id number] PCP - General Internal Medicine 03/31/20 documented as of this encounter
--- OUTSIDE RECORDS SUMMARY | 2025-10-14 08:16 | XMS_ITS | Encounter Summary ---
Author Organization [employer] Address [address] [place] [address] 7 [place] [address] Care Team Providers Care Patrol Police Sergeant Name Role Phone Adair Jj MD Primary Care Prov ider Reason for Visit * Reason Onset Date Comments Referral 11/04/2023 Encounter Details Date Type Department Care Team ([facility] st Contact Info) Description 11/04/[address] [facility] MED & PEDS [address] [place], [place] [phone] Adair Jj MD [address] [place] [address] Referral Social History Tobacco Use Types Packs/Day [...] documented as of this encounter Care Teams Patrol Police Sergeant Relationship Specialty Start Date End Date Adair Jj MD [address] [place] [phone] PCP - General Internal Medicine 03/31/20 documented as of this encounter
--- OUTSIDE RECORDS SUMMARY | 2025-10-14 08:16 | XMS_ITS | Encounter Summary ---
Author Organization [employer] Address [address] [place] [address] 7 [place] [address] Care Team Providers Care Coffee Sommelier Name Role Phone Adair Jj MD Primary Care Prov ider Reason for Visit * Reason Onset Date Comments Referral 11/07/2023 Encounter Details Date Type Department Care Team ([facility] st Contact Info) Description 11/07/2023 Telephone [facility] MED & PEDS [address] [place], [place] [phone] Adair Jj MD [address] [place] [address] Referral Social History Tobacco Use Types Packs/Day [...] states pt is requesting a referral to [facility] for mammogram. documented in this encounter Plan of Treatment Not on file documented as of this encounter Visit Diagnoses Not on filedocumented in this encounter Additional Health Concerns Assessment Noted Time PHQ-9 Depression Total Score: 0 02/08/20 23 1:47 PM EDT documented as of this encounter Care Teams Coffee Sommelier Relationship Specialty Start Date End Date Adair Jj MD [address] [place] [id number] PCP - General Internal Medicine 03/31/20 documented as of this encounter
--- OUTSIDE RECORDS SUMMARY | 2025-10-14 08:16 | XMS_ITS | Encounter Summary ---
Author Organization [employer] Address [address] [facility] 7t [place] [address] Care Team Providers Care Feed Mill Tender Name Role Phone Adair Jj MD Primary Care Prov ider Encounter Details Date Type Department Care Team ([facility] st Contact Info) Description 12/06/2024 Telephone [facility] MEDICINE [address] [place] [address] Adair Jj MD [address] [place], [place] [phone] Social History Tobacco Use Types Packs/Day Years [...] documented as of this encounter Care Teams Feed Mill Tender Relationship Specialty Start Date End Date Adair jJ MD [address] [place] [address] PCP - General Internal Medicine 03/31/20 documented as of this encounter
--- OUTSIDE RECORDS SUMMARY | 2025-10-14 08:16 | XMS_ITS | Encounter Summary ---
Author Organization [employer] Address [address] [facility] 7 [place] [address] Care Team Providers Care Inspector Filters Name Role Phone Adair Jj MD Primary Care Prov ider Reason for Visit * Reason Onset Date Comments Nurse Triage 05/06/2025 Encounter Details Date Type Department Care Team ([facility] st Contact Info) Description 05/06/2025 Telephone [facility] MEDICINE [address] [place] [address] Adair Jj MD [address] [place] [address] Nurse Triage Social History Tobacco Use Types [...] Miscellaneous Notes * Telephone Encounter - Charlene Dallas RN - 05/08/2025 2:02 PM EDT Triage call Pt daughter is with Pt and reports Pt has had some numbness of bilateral fingers as well as overall fatigue/tiredness. Daughter reports this usually happens when Pt is low in calcium or iron. Pt would like to see provider. ASK apt with provider [facility] at 320pm today. Pt agrees with [...] Tc from pt daughter returning phone call. [phone] * Telephone Encounter - Charlene Dallas RN - 05/06/2025 12:52 PM EDT Triage call to [phone] Pt daughter answered but, Pt not with daughter. Call to Pt [place] [id number] [place], Pt was called at [phone] Pt didn't answer. Voice message left to call [facility] [phone]. Call to daughter again and advised to call [facility] [phone] when daughter is with Pt and daughter [...] documented as of this encounter Care Teams Inspector Filters Relationship Specialty Start Date End Date Adair Jj MD [address] [place] [address] PCP - General Internal Medicine 03/31/20 documented as of this encounter
--- OUTSIDE RECORDS SUMMARY | 2025-10-14 08:17 | XMS_ITS | Encounter Summary ---
Author Organization [employer] Address [address] [place] [address] 7t [place] [address] Care Team Providers Care Lung Gun Operator Name Role Phone Adair Jj MD Primary Care Prov ider Encounter Details Date Type Department Care Team ([facility] Contact Info) Description 09/19/2025 Results Follow-Up [facility] MED & PEDS [address] [place], [place] [phone] Nori Contreras MD [address] [place] [address] Chlamydia/N. Gonorrhoeae RNA, TMA, Urogenitial Social History Tobacco Use Types Packs/Day Years [...] as of this encounter Miscellaneous Notes * Result Encounter Note - Nori Contreras MD - 09/19/2025 11:09 AM EDT FYI. documented in this encounter Plan of Treatment Not on file documented as of this encounter Visit Diagnoses Not on filedocumented in this encounter Additional Health Concerns Assessment Noted Time PHQ-9 Depression Total Score: 0 02/08/20 23 1:47 PM EDT documented as of this encounter Care Teams Lung Gun Operator Relationship Specialty Start Date End Date Adair Jj MD [address] [place] [address] PCP - General Internal Medicine 03/31/20 documented as of this encounter
--- OUTSIDE RECORDS SUMMARY | 2025-10-14 08:17 | XMS_ITS | Encounter Summary ---
Author Organization [facility] Address [address] [place] [phone] Phone Care Team Providers Care Manager Configuration Name Role Phone Unknown, Unknown Primary Care Provider Zoe egan Pcp, Unknown Primary Care Provider Unavailabl e Pcp, Unknown Primary Care Provider Unavailnayely e Adair Jj MD Primary Care Prov ider Encounter Details Date Type Department Care Team (Late st Contact Info) Description 02/07/2018 Procedure Pass [facility], Ct Scan - [address] [address] Social History Tobacco Use Types Packs/Day Years [...] on filedocumented in this encounter Care Teams Manager Configuration Relationship Specialty Start Date End Date Unknown, Unknown, PCP - General 02/07/18 07/20/20 Pcp, Unknown PCP - General 07/21/20 05/04/21 Pcp, Unknown PCP - General 05/05/21 10/26/21 Adair Jj MD [address] [place] [address] PCP - General Internal Medicine 10/27/21 documented as of this encounter Additional Source Comments The information contained in this document represents components of the legal health record. It is not the complete legal health record.[facility]
--- OUTSIDE RECORDS SUMMARY | 2025-10-14 08:17 | XMS_ITS | Encounter Summary ---
Author Organization [employer] Address [address] [facility] [address] [place] [address] Care Team Providers Care Ad Compositor Name Role Phone Adair Jj MD Primary Care Prov ider Encounter Details Date Type Department Care Team ([facility] st Contact Info) Description 12/03/2022 Orders Only [facility] [address] [place] [address] Jasmine Carballo LPN Social History Tobacco Use [...] 4:05 PM EST) HCG Quantitative <2 mIU/mL [facility] Comment:Weeks post LMP Appro ximate hCG(Last Menstrual Period) Range (mIU/ml)3 - 4 weeks 9 - 1304 - 5 weeks 75 - 2,6005 - 6 weeks 850 - 20,8006 - 7 weeks 4000 - 100,2007 - 12 weeks 11,500 - 289,83471 - 16 weeks 18,300 - 137,03538 - 29 weeks (2nd trimester) 1,400 - 53,94625 - 41 weeks (3rd trimester) 940 - 60,000The Arredondo B- hCG assay is used for the early detection ofpregnancy; it cannot be used to diagnose any conditionunrelated to . If a B-hCG level is not supportedby the clinical evidence, results should be confirmed by analternative method (qualitative urine hCG, for example). 12/30/2022 4:0 5 PM EST 12/30/2022 4:06 PM EST [facility] External Provider LAB BLO OD ORDERABLES Final Result Performing Organization Address [facility]/ZIP Co de Phone Number [facility] [address] [place] [phone] * TSH W/Reflex to FT4 (12/30/2022 4:05 PM EST) TSH reflex Free T4 0.57 0.32 - 4.0 uIU/mL [facility] 12/30/2022 4:05 PM EST 12/30/2022 4:06 PM EST [facility] External Provider LAB BLO OD ORDERABLES Final Result Performing Organization Address City/[facility]/ZIP Co de Phone Number [facility] [address] [place] [phone] * (ABNORMAL) CBC (12/30/2022 4:05 PM EST) White Blood Count 6.1 4.8 - 10.8 X10*3/uL [facility] Red Blood Count 3.48(L) 4.20 - 5.50 X10*6/uL [facility] Hemoglobin 10.3(L) 12.0 - 16.0 g/dl [facility] Hematocrit 32.3(L) 37.0 - 47.0 % [facility] Mean Corpuscular Volume 92.8 80.0 - 98.0 fL [facility] Mean Corpuscular Hemoglobin 29.6 27.0 - 33.0 pg [facility] Mean Corpuscular HGB Conc 31.9 31.0 - 35.0 g/dl [facility] Red Cell Distribution Width 13.9 11.0 - 16.0 % [facility] Platelet Count 246 160 - 400 X10*3/uL [facility] Mean Platelet Volume 11.3 9.4 - 12.3 fL [facility] NRBC Pct Auto 0.0 0.0 - 0.2 /100WBC [facility] NRBC Abs Auto 0.000 0.0 - 0.012 X10*3/uL [facility] 12/30/2022 4:05 PM EST 12/30/2022 4:06 PM EST [facility] External Provider LAB BLO OD ORDERABLES Final Result Performing Organization Address City/State/[facility] Co de Phone Number [facility] [address] [place] [phone] * Hematoxylin and Eosin Stain (12/30/2022 3:28 PM EST) 12/30/2022 3:28 PM EST 12/31/2022 6:27 AM EST Narrative [facility] - 01/03/2023 4:02 PM EST ----- ------- Name: Umm Andersen Age/Sex: 47/F : 1975 Unit#: [id number] Attend Dr: Get Smith MD Re12/30/22 Status: [facility] REF Location: [facility] Disch: ----- ------- SPEC : [id number] RECD: 12/31/22 STATUS: EYAD ROME NUM: [id number] DYLLAN: 12/30/[address] [facility] [address]: Get Smith MD ENTERED: 12/31/22 SP TYPE: Surgical OTHR DR: [facility] ORDERED: HE Stain/2, Gross Micro L4 Diagnosis [...] single cassette labeled A. CEDS Copies To: [address] [id number] Get Smith MD [address] [place], [place] [address]Gagandeep [address] [address] ----- ------- Signed (signature on file) Carolina Gill 01/03/23 1602 ----- ------- END OF REPORT [facility] External Provider LAB BLO OD ORDERABLES Final Result [facility] [address] [place] [address] [phone] * (ABNORMAL) Basic Metabolic Panel (12/29/2022 4:10 PM EST) Sodium 141 135 - 145 mmol/L [facility] Potassium 3.6 3.3 - 5.1 mmol/L [facility] Chloride 108 96 - 108 mmol/L [facility] Carbon Dioxide 23 22 - 29 mmol/L [facility] Anion Gap 14 12 - 20 [facility] Urea Nitrogen (BUN) 8(L) 9 - 16 mg/dL [facility] Creatinine, Serum 0.68 0.5 - 1.4 mg/dL [facility] Creatinine Clr Calc Pharmacy 113.9 [facility] Comment:Provided height and weight: 162.56 cm,90.718 kg.eGFR (calculated from the MDRD study equation) and eCrCl(calculated from the Cockcroft-Gault equation) are based ondifferent parameters and may not yield comparable results.If eCrCl result is absurd, please check patient'sheight/weight. Estimated Glomerular Filt Rate >60 [facility] Comment:NOTE: For -Am erican individuals, multiply the result by 1.210.Chronic Kidney Disease: Estimated GFR < 60 mL/min/1.78z4Bphiqp Kidney Disease: Estimated GFR < 15 mL/min/1.73m2 Glucose 107 60 - 115 mg/dL [facility] Calcium 7.7(L) 8.4 - 10.2 mg/dL [facility] 12/29/2022 4:10 PM EST 12/29/2022 4:17 PM EST [facility] External Provider LAB BLO OD ORDERABLES Final Result [facility] [address] [place] [phone] * (ABNORMAL) CBC auto differential (12/29/2022 4:10 PM EST) White Blood Count 5.8 4.8 - 10.8 X10*3/uL [facility] Red Blood Count 3.29(L) 4.20 - 5.50 X10*6/uL [facility] Hemoglobin 10.1(L) 12.0 - 16.0 g/dl [facility] Hematocrit 30.1(L) 37.0 - 47.0 % [facility] Mean Corpuscular Volume 91.5 80.0 - 98.0 fL [facility] Mean Corpuscular Hemoglobin 30.7 27.0 - 33.0 pg [facility] Mean Corpuscular HGB Conc 33.6 31.0 - 35.0 g/dl [facility] Red Cell Distribution Width 13.9 11.0 - 16.0 % [facility] Platelet Count 205 160 - 400 X10*3/uL [facility] Mean Platelet Volume 10.4 9.4 - 12.3 fL [facility] Neutrophils Percent Auto 69.8 45 - 73 % [facility] Imm Gran Pct Auto 0.5(H) 0.0 - 0.4 % [facility] Lymphocytes Percent Auto 22.6 20 - 40 % [facility] Monocytes Percent Auto 5.7 2 - 11 % [facility] Eosinophils Percent Auto 0.9 0 - 4 % [facility] Basophils Percent Auto 0.5 0 - 2 % [facility] NRBC Pct Auto 0.0 0.0 - 0.2 /100WBC [facility] Neutrophils Absolute Auto 4.0 2.0 - 8.3 x10*3/uL [facility] Imm Gran Abs Auto 0.03 0.00 - 0.03 X10*3/uL [facility] Lymphocytes Absolute Auto 1.3 1.2 - 4.9 X10*3/uL [facility] Monocytes Absolute Auto 0.3 0.1 - 1.2 X10*3/uL [facility] Eosinophils Absolute Auto 0.1 0.0 - 0.4 X10*3/uL [facility] Basophils Absolute Auto 0.0 0.0 - 0.2 X10*3/uL [facility] NRBC Abs Auto 0.000 0.0 - 0.012 X10*3/uL [facility] 12/29/2022 4:10 PM EST 12/29/2022 4:17 PM EST us [facility] External Provider LAB BLO OD ORDERABLES Final Result [facility] [address] [place] [phone] * (ABNORMAL) CBC auto differential (12/28/2022 11:45 PM EST) White Blood Count 6.7 4.8 - 10.8 X10*3/uL [facility] Red Blood Count 3.13(L) 4.20 - 5.50 X10*6/uL [facility] Hemoglobin 9.5(L) 12.0 - 16.0 g/dl [facility] Hematocrit 28.4(L) 37.0 - 47.0 % [facility] Mean Corpuscular Volume 90.7 80.0 - 98.0 fL [facility] Mean Corpuscular Hemoglobin 30.4 27.0 - 33.0 pg [facility] Mean Corpuscular HGB Conc 33.5 31.0 - 35.0 g/dl [facility] Red Cell Distribution Width 13.8 11.0 - 16.0 % [facility] Platelet Count 190 160 - 400 X10*3/uL [facility] Mean Platelet Volume 10.6 9.4 - 12.3 fL [facility] Neutrophils Percent Auto 57.4 45 - 73 % [facility] Imm Gran Pct Auto 0.1 0.0 - 0.4 % [facility] Lymphocytes Percent Auto 34.6 20 - 40 % [facility] Monocytes Percent Auto 6.4 2 - 11 % [facility] Eosinophils Percent Auto 0.9 0 - 4 % [facility] Basophils Percent Auto 0.6 0 - 2 % [facility] NRBC Pct Auto 0.0 0.0 - 0.2 /100WBC [facility] Neutrophils Absolute Auto 3.8 2.0 - 8.3 x10*3/uL [facility] Imm Gran Abs Auto 0.01 0.00 - 0.03 X10*3/uL [facility] Lymphocytes Absolute Auto 2.3 1.2 - 4.9 X10*3/uL [facility] Monocytes Absolute Auto 0.4 0.1 - 1.2 X10*3/uL [facility] Eosinophils Absolute Auto 0.1 0.0 - 0.4 X10*3/uL [facility] Basophils Absolute Auto 0.0 0.0 - 0.2 X10*3/uL [facility] NRBC Abs Auto 0.000 0.0 - 0.012 X10*3/uL [facility] 12/28/2022 11:4 5 PM EST 12/28/2022 11:48 PM EST [facility] External Provider LAB BLO OD ORDERABLES Final Result [facility] [address] [place] [phone] * (ABNORMAL) CBC auto differential (12/28/2022 9:55 PM EST) White Blood Count 6.2 4.8 - 10.8 X10*3/uL [facility] Red Blood Count 3.07(L) 4.20 - 5.50 X10*6/uL [facility] Hemoglobin 9.1(L) 12.0 - 16.0 g/dl [facility] Hematocrit 27.8(L) 37.0 - 47.0 % [facility] Mean Corpuscular Volume 90.6 80.0 - 98.0 fL [facility] Mean Corpuscular Hemoglobin 29.6 27.0 - 33.0 pg [facility] Mean Corpuscular HGB Conc 32.7 31.0 - 35.0 g/dl [facility] Red Cell Distribution Width 13.9 11.0 - 16.0 % [facility] Platelet Count 199 160 - 400 X10*3/uL [facility] Mean Platelet Volume 10.5 9.4 - 12.3 fL [facility] Neutrophils Percent Auto 60.8 45 - 73 % [facility] Imm Gran Pct Auto 0.2 0.0 - 0.4 % [facility] Lymphocytes Percent Auto 31.6 20 - 40 % [facility] Monocytes Percent Auto 6.0 2 - 11 % [facility] Eosinophils Percent Auto 0.8 0 - 4 % [facility] Basophils Percent Auto 0.6 0 - 2 % [facility] NRBC Pct Auto 0.0 0.0 - 0.2 /100WBC [facility] Neutrophils Absolute Auto 3.8 2.0 - 8.3 x10*3/uL [facility] Imm Gran Abs Auto 0.01 0.00 - 0.03 X10*3/uL [facility] Lymphocytes Absolute Auto 2.0 1.2 - 4.9 X10*3/uL [facility] Monocytes Absolute Auto 0.4 0.1 - 1.2 X10*3/uL [facility] Eosinophils Absolute Auto 0.1 0.0 - 0.4 X10*3/uL [facility] Basophils Absolute Auto 0.0 0.0 - 0.2 X10*3/uL [facility] NRBC Abs Auto 0.000 0.0 - 0.012 X10*3/uL [facility] 12/28/2022 9:55 PM EST 12/28/2022 9:58 PM EST [facility] External Provider LAB BLO OD ORDERABLES Final Result [facility] [address], [place] [phone] * (ABNORMAL) CBC auto differential (12/28/2022 9:17 PM EST) White Blood Count 6.0 4.8 - 10.8 X10*3/uL [facility] Red Blood Count 3.02(L) 4.20 - 5.50 X10*6/uL [facility] Hemoglobin 9.1(L) 12.0 - 16.0 g/dl [facility] Hematocrit 27.4(L) 37.0 - 47.0 % [facility] Mean Corpuscular Volume 90.7 80.0 - 98.0 fL [facility] Mean Corpuscular Hemoglobin 30.1 27.0 - 33.0 pg [facility] Mean Corpuscular HGB Conc 33.2 31.0 - 35.0 g/dl [facility] Red Cell Distribution Width 14.0 11.0 - 16.0 % [facility] Platelet Count 193 160 - 400 X10*3/uL [facility] Mean Platelet Volume 10.4 9.4 - 12.3 fL [facility] Neutrophils Percent Auto 59.9 45 - 73 % [facility] Imm Gran Pct Auto 0.0 0.0 - 0.4 % [facility] Lymphocytes Percent Auto 32.7 20 - 40 % [facility] Monocytes Percent Auto 6.2 2 - 11 % [facility] Eosinophils Percent Auto 0.7 0 - 4 % [facility] Basophils Percent Auto 0.5 0 - 2 % [facility] NRBC Pct Auto 0.0 0.0 - 0.2 /100WBC [facility] Neutrophils Absolute Auto 3.6 2.0 - 8.3 x10*3/uL [facility] Imm Gran Abs Auto 0.00 0.00 - 0.03 X10*3/uL [facility] Lymphocytes Absolute Auto 2.0 1.2 - 4.9 X10*3/uL [facility] Monocytes Absolute Auto 0.4 0.1 - 1.2 X10*3/uL [facility] Eosinophils Absolute Auto 0.0 0.0 - 0.4 X10*3/uL [facility] Basophils Absolute Auto 0.0 0.0 - 0.2 X10*3/uL [facility] NRBC Abs Auto 0.000 0.0 - 0.012 X10*3/uL [facility] 12/28/2022 9:17 PM EST 12/28/2022 9:20 PM EST [facility] External Provider LAB BLO OD ORDERABLES Final Result [facility] [address], [place] [phone] * (ABNORMAL) CBC auto differential (12/28/2022 8:13 PM EST) White Blood Count 5.8 4.8 - 10.8 X10*3/uL [facility] Red Blood Count 3.04(L) 4.20 - 5.50 X10*6/uL [facility] Hemoglobin 9.1(L) 12.0 - 16.0 g/dl [facility] Hematocrit 27.6(L) 37.0 - 47.0 % [facility] Mean Corpuscular Volume 90.8 80.0 - 98.0 fL [facility] Mean Corpuscular Hemoglobin 29.9 27.0 - 33.0 pg [facility] Mean Corpuscular HGB Conc 33.0 31.0 - 35.0 g/dl [facility] Red Cell Distribution Width 14.0 11.0 - 16.0 % [facility] Platelet Count 210 160 - 400 X10*3/uL [facility] Mean Platelet Volume 10.7 9.4 - 12.3 fL [facility] Neutrophils Percent Auto 58.8 45 - 73 % [facility] Imm Gran Pct Auto 0.3 0.0 - 0.4 % [facility] Lymphocytes Percent Auto 33.2 20 - 40 % [facility] Monocytes Percent Auto 6.3 2 - 11 % [facility] Eosinophils Percent Auto 0.9 0 - 4 % [facility] Basophils Percent Auto 0.5 0 - 2 % [facility] NRBC Pct Auto 0.0 0.0 - 0.2 /100WBC [facility] Neutrophils Absolute Auto 3.4 2.0 - 8.3 x10*3/uL [facility] Imm Gran Abs Auto 0.02 0.00 - 0.03 X10*3/uL [facility] Lymphocytes Absolute Auto 1.9 1.2 - 4.9 X10*3/uL [facility] Monocytes Absolute Auto 0.4 0.1 - 1.2 X10*3/uL [facility] Eosinophils Absolute Auto 0.1 0.0 - 0.4 X10*3/uL [facility] Basophils Absolute Auto 0.0 0.0 - 0.2 X10*3/uL [facility] NRBC Abs Auto 0.000 0.0 - 0.012 X10*3/uL [facility] 12/28/2022 8:13 PM EST 12/28/2022 8:15 PM EST [facility] External Provider LAB BLO OD ORDERABLES Final Result [facility] [address] [place] [phone] * Chlamydia/N. Gonorrhoeae RNA, TMA, Urogenitial (12/28/2022 6:28 PM EST) CT PCR NOT DETECTED Not Detect. [facility] Comment:A not detected test result does [...] psychologicalconsequences. NG PCR NOT DETECTED Not Detect. [facility] Comment:A not detected test result does [...] PM EST 12/28/2022 6:36 PM EST Narrative [facility] - 12/29/2022 9:14 AM EST Vaginal [facility] Exter nal Provider LAB MICROBIOLOGY - GENERAL ORDERABLES Final Result [facility] [address] [place] [phone] * SureSwab?? Advanced Vaginitis, TMA (12/28/2022 6:28 PM EST) Trichomonas DNA Probe Negative Negative [facility] Gardnerella DNA Probe Negative Negative [facility] Emma DNA Probe Negative Negative [facility] 12/28/2022 6:28 PM EST 12/28/2022 6:36 PM EST [facility] Exter nal Provider LAB BODY FLUIDS AND STOOLS ORDERABLES Final Result Performing Organization Address [facility] de Phone Number [facility] [address] [place] [phone] * Wet prep, genital (12/28/2022 6:28 PM EST) 12/28/2022 6:28 PM EST 12/28/2022 6:36 PM EST Comment:Vaginal Narrative [facility] - 12/28/2022 6:40 PM EST Trichomonas Prep Direct Microscopic Exam Trichomonas Prep No trichomonads or yeast seen Specimen Source: Vaginal [facility] Exter nal Provider LAB MICROBIOLOGY - GENERAL ORDERABLES Final Result Performing Organization Address [facility] de Phone Number [facility] [address] [place] [phone] * Culture, Urine, Routine (12/28/2022 5:53 PM EST) 12/28/2022 5:53 PM EST 12/28/2022 5:53 PM EST Comment:UACC Narrative [facility] - 12/30/2022 12:23 PM EST Urine Culture Report Result Urine Culture 50,000 to 100,000 cfu/ml Urine Culture Mixed bacterial sarina characteristic of Urine Culture urogenital contamination. Strep agalactiae (Grp B) Quant < 10,000 cfu/mL Susc N/A Susceptibility not routinely performed on this isolate. Specimen Source: Urine clean catch [facility] Exter nal Provider LAB MICROBIOLOGY - GENERAL ORDERABLES Final Result Performing Organization Address [facility] de Phone Number [facility] [address] [place] [phone] * (ABNORMAL) Urinalysis, Complete, with Reflex to Culture (12/28/2022 5:11 PM EST) Color Urine RED [facility] Appearance Urine Turbid [facility] PH 5.5 5.0 - 9.0 [facility] Glucose Urine UA Negative Negative mg/dL [facility] Urine Blood Large (3+)(A) Negative [facility] Specific [place] - Urine 1.020 1.005 - 1.025 [facility] Urine Protein 100 (2+)(A) Neg-Trace mg/dL [facility] Urine Ketones Trace Negative mg/dL [facility] Nitrite Urine Positive(A) Negative [facility] Leukocyte Esterase Urine Trace(A) Negative [facility] RBC Urine >20(A) 0 - 2 /HPF [facility] Urine WBC 0-5 0 - 5 /HPF [facility] Urine Squamous Epithelial Cell 0-2 0 - 2 /HPF [facility] Urine Bacteria Trace None Seen [facility] Hyaline Casts, Urine 0-2 0 - 2 /LPF [facility] 12/28/2022 5:11 PM EST 12/28/2022 5:14 PM EST Narrative [facility] - 12/28/2022 5:52 PM EST [id number], Clean Catch us [facility] External Provider LAB URI NE ORDERABLES Final Result [facility] [address] [place] [phone] * (ABNORMAL) CBC auto differential (12/28/2022 5:09 PM EST) White Blood Count 5.8 4.8 - 10.8 X10*3/uL [facility] Red Blood Count 3.19(L) 4.20 - 5.50 X10*6/uL [facility] Hemoglobin 9.5(L) 12.0 - 16.0 g/dl [facility] Hematocrit 29.2(L) 37.0 - 47.0 % [facility] Mean Corpuscular Volume 91.5 80.0 - 98.0 fL [facility] Mean Corpuscular Hemoglobin 29.8 27.0 - 33.0 pg [facility] Mean Corpuscular HGB Conc 32.5 31.0 - 35.0 g/dl [facility] Red Cell Distribution Width 13.9 11.0 - 16.0 % [facility] Platelet Count 211 160 - 400 X10*3/uL [facility] Mean Platelet Volume 10.5 9.4 - 12.3 fL [facility] Neutrophils Percent Auto 58.5 45 - 73 % [facility] Imm Gran Pct Auto 0.2 0.0 - 0.4 % [facility] Lymphocytes Percent Auto 32.9 20 - 40 % [facility] Monocytes Percent Auto 6.7 2 - 11 % [facility] Eosinophils Percent Auto 1.0 0 - 4 % [facility] Basophils Percent Auto 0.7 0 - 2 % [facility] NRBC Pct Auto 0.0 0.0 - 0.2 /100WBC [facility] Neutrophils Absolute Auto 3.4 2.0 - 8.3 x10*3/uL [facility] Imm Gran Abs Auto 0.01 0.00 - 0.03 X10*3/uL [facility] Lymphocytes Absolute Auto 1.9 1.2 - 4.9 X10*3/uL [facility] Monocytes Absolute Auto 0.4 0.1 - 1.2 X10*3/uL [facility] Eosinophils Absolute Auto 0.1 0.0 - 0.4 X10*3/uL [facility] Basophils Absolute Auto 0.0 0.0 - 0.2 X10*3/uL [facility] NRBC Abs Auto 0.000 0.0 - 0.012 X10*3/uL [facility] 12/28/2022 5:09 PM EST 12/28/2022 5:14 PM EST [facility] External Provider LAB BLO OD ORDERABLES Final Result Performing Organization Address [facility] Co de Phone Number [facility] [address] [place] [phone] * Red blood count (12/28/2022 5:08 PM EST) Red Blood Cells: [id number] AN RC TRANSFUSED 12/28/22 2258 [facility] 12/28/2022 5:08 PM EST 12/28/2022 5:16 PM EST [facility] External Provider LAB BLO OD ORDERABLES Final Result Performing Organization Address [facility] de Phone Number [facility] [address] [place] [phone] * Type and screen (12/28/2022 5:08 PM EST) Blood Type AN [facility] Antibody Screen NEGATIVE [facility] 12/28/2022 5:08 PM EST 12/28/2022 5:16 PM EST Narrative [facility] - 12/28/2022 11:54 PM EST Results at Issue Units as of 12/28/22 2300 ...Test View Group: Most Recent HGB HCT Results LABORATORYDate Time Test Result Flag Normal Range12/28/222154 HGB 9.1 L 12.0-16.0 g/dl12/28/225 HCT 27.8 L 37.0-47.0 % Hgb 7-9 gmNo [facility] External Provider LAB BLO OD BANK TEST ORDERABLES Final Result Performing Organization Address [facility] Co de Phone Number [facility] [address] [place] [phone] * HCG, Total, Quantitative (12/28/2022 5:08 PM EST) HCG Quantitative <2 mIU/mL [facility] Comment:Weeks post LMP Appr oximate hCG(Last Menstrual Period) Range (mIU/ml)3 - 4 weeks 9 - 1304 - 5 weeks 75 - 2,6005 - 6 weeks 850 - 20,8006 - 7 weeks 4000 - 100,2007 - 12 weeks 11,500 - 289,17237 - 16 weeks 18,300 - 137,29464 - 29 weeks (2nd trimester) 1,400 - 53,90920 - 41 weeks (3rd trimester) 940 - 60,000The Arredondo B-hCG assay is used for the early detection ofpregnancy; it cannot be used to diagnose any conditionunrelated to . If a B-hCG level is not supportedby the clinical evidence, results should be confirmed by analternative method (qualitative urine hCG, for example). 12/28/2022 5:08 PM EST 12/28/2022 5:14 PM EST [facility] External Provider LAB BLO OD ORDERABLES Final Result Performing Organization Address [facility] de Phone Number [facility] [address] [place] [phone] * (ABNORMAL) Comprehensive Metabolic Panel (12/28/2022 5:08 PM EST) Sodium 140 135 - 145 mmol/L [facility] Potassium 3.9 3.3 - 5.1 mmol/L [facility] Chloride 105 96 - 108 mmol/L [facility] Carbon Dioxide 25 22 - 29 mmol/L [facility] Anion Gap 14 12 - 20 [facility] Urea Nitrogen (BUN) 11 9 - 16 mg/dL [facility] Creatinine, Serum 0.70 0.5 - 1.4 mg/dL [facility] Creatinine Clr Calc Pharmacy 110.7 [facility] Comment:Provided height and weight: 162.56 cm,90.718 kg.eGFR (calculated from the MDRD study equation) and eCrCl(calculated from the Cockcroft-Gault equation) are based ondifferent parameters and may not yield comparable results.If eCrCl result is absurd, please check patient'sheight/weight. Estimated Glomerular Filt Rate >60 [facility] Comment:NOTE: For -Am erican individuals, multiply the result by 1.210.Chronic Kidney Disease: Estimated GFR < 60 mL/min/1.36w1Ipehlr Kidney Disease: Estimated GFR < 15 mL/min/1.73m2 Glucose 96 60 - 115 mg/dL [facility] Calcium 8.0(L) 8.4 - 10.2 mg/dL [facility] Bilirubin, Total 0.5 0.0 - 1.0 mg/dL [facility] Aspartate Amino Transferase 14 5 - 31 U/L [facility] Alanine Aminotransferase 10 0 - 31 U/L [facility] Total Protein 6.1(L) 6.5 - 8.0 g/dL [facility] Albumin Level 3.7 3.5 - 5.0 g/dL [facility] Alkaline Phosphatase 40 39 - 117 U/L [facility] 12/28/2022 5:08 PM EST 12/28/2022 5:14 PM EST [facility] External Provider LAB BLO OD ORDERABLES Final Result [facility] [address] [place] [phone] documented in this encounter Visit Diagnoses Not on filedocumented in this encounter Care Teams Ad Compositor Relationship Specialty Start Date End Date Adair Jj MD [address] [place] [address] PCP - General Internal Medicine 03/31/20 documented as of this encounter
--- OUTSIDE RECORDS SUMMARY | 2025-10-14 08:17 | XMS_ITS | Encounter Summary ---
Author Organization [employer] Address [address] [place] [address] [address] [place] [address] Care Team Providers Care Pointer Helper Name Role Phone Adair Jj MD Primary Care Prov ider Encounter Details Date Type Department Care Team ([facility] st Contact Info) Description 05/13/2025 Orders Only [facility] [address] [place], [place] [phone] Nori Contreras MD [address] [place] [address] Social History Tobacco Use Types Packs/Day Years [...] t he electric, gas, oil or water fitmob threatened to shut off services in your [...] EDT CBC Routine 09/18/2025 12:09 PM EDT LH Routine 09/18/2025 12:09 PM EDT FSH Routine 09/18/2025 12:09 PM EDT CHLAMYDIA/N. GONORRHOEAE RNA, TMA, UROGENITAL Routine 09/18/2025 11:20 AM EDT documented in this encounter Results * LH (09/18/2025 12:09 PM EDT) Lutenizing Hormone 14.1 mIU/mL [facility] Comment:Reference Range Foll icular Phase 1.9-12.5 Mid-Cycle Peak 8.7-76.3 Luteal Phase 0.5-16.9 Postmenopausal 10.0-54.7THIS TEST WAS PERFORMED AT:[facility] [place] [phone] ARCINIEGA MD 09/18/2025 12:0 9 PM EDT 09/18/2025 12:12 PM EDT us Generic External Data Provider LAB BLOOD ORDERAB LES Final Result [facility] [address] [place] [phone] * FSH (09/18/2025 12:09 PM EDT) Follicle Stimulating Hormone 44.6 mIU/mL [facility] Comment:Reference Range Foll icular Phase 2.5-10.2 Mid-cycle Peak 3.1-17.7 Luteal Phase 1.5- 9.1 Postmenopausal 23.0-116.3THIS TEST WAS PERFORMED AT:[facility] [place] [phone] ARCINIEGA MD 09/18/2025 12:0 9 PM EDT 09/18/2025 12:12 PM EDT Generic External Data Provider LAB BLOOD ORDERAB LES Final Result Performing Organization Address [facility] Co de Phone Number [facility] [address] [place] [phone] * TSH with Reflex to Free T4 (09/18/2025 12:09 PM EDT) TSH reflex Free T4 0.60 0.32 - 4.0 uIU/mL [facility] 09/18/2025 12:0 9 PM EDT 09/18/2025 12:12 PM EDT Generic External Data Provider LAB BLOOD ORDERAB LES Final Result Performing Organization Address [facility] Co de Phone Number [facility] [address] [place] [phone] * (ABNORMAL) CBC (09/18/2025 12:09 PM EDT) White Blood Count 4.4(L) 4.8 - 10.8 X10*3/uL [facility] Red Blood Count 3.73(L) 4.20 - 5.50 X10*6/uL [facility] Hemoglobin 11.0(L) 12.0 - 16.0 g/dl [facility] Hematocrit 34.0(L) 37.0 - 47.0 % [facility] Mean Corpuscular Volume 91.2 80.0 - 98.0 fL [facility] Mean Corpuscular Hemoglobin 29.5 27.0 - 33.0 pg [facility] Mean Corpuscular HGB Conc 32.4 31.0 - 35.0 g/dl [facility] Red Cell Distribution Width 12.1 11.0 - 16.0 % [facility] Platelet Count 220 160 - 400 X10*3/uL [facility] Mean Platelet Volume 10.4 9.4 - 12.3 fL [facility] NRBC Pct Auto 0.0 0.0 - 0.2 /100WBC [facility] NRBC Abs Auto 0.000 0.0 - 0.012 X10*3/uL [facility] 09/18/2025 12:0 9 PM EDT 09/18/2025 12:12 PM EDT us Generic External Data Provider LAB BLOOD ORDERAB LES Final Result [facility] [address] [place] [phone] * Chlamydia/N. Gonorrhoeae RNA, TMA, Urogenitial (09/18/2025 11:20 AM EDT) CT PCR NOT DETECTED Not Detect. [facility] Comment:A not detected test result [...] psychologicalconsequences. NG PCR NOT DETECTED Not Detect. [facility] Comment:A not detected test result [...] lead to adverse medical, social or psychologicalconsequences. 09/18/2025 11:2 0 AM EDT 09/18/2025 4:22 PM EDT us Generic External Data Provider LAB MICROBIOLOGY - GENERAL ORDERABLES Final Result [facility] [address] [place] [phone] documented in this encounter Visit Diagnoses Not on filedocumented in this encounter Additional Health Concerns Assessment Noted Time PHQ-9 Depression Total Score: 0 02/08/20 23 1:47 PM EDT documented as of this encounter Care Teams Pointer Helper Relationship Specialty Start Date End Date Adair Jj MD [address] [place] [phone] PCP - General Internal Medicine 03/31/20 documented as of this encounter
--- OUTSIDE RECORDS SUMMARY | 2025-10-14 08:17 | XMS_ITS | Clinical Summary ---
Author Organization [facility] Address [address] [place] [address] Care Team Providers Care Rubber Washer Name Role Phone Adair Jj MD Primary [...] Social Drivers of Health Annual Screening 11/21/2024 Influenza Vaccine (#1) 2025 , 09/06/2014 COVID-19 Vaccine ( - 2024-2 6 season) 2025 01/11/2022, 05/29/2021, 03/11/2021 Mammogram 12/27/2025 12/27/2023 DTaP,Tdap,and Td Vaccines (2 - Td or Tdap) 11/19/2026 11/19/2016 Pneumococcal Vaccine: Pediatric (0-5 Years) and At-Risk Patients (6-50 Years) Aged Out No longer eligible based on patient's age to complete this topic Insurance [place] [address] HSNO/FREE CARE Care Teams Rubber Washer Relationship Specialty Start Date End Date Adair Jj MD [address] [place] [phone] PCP - General 07/22/23
--- OUTSIDE RECORDS SUMMARY | 2025-10-14 08:17 | XMS_ITS | Clinical Summary ---
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 180 capsule 3 05/08/20 25 Active cholecalciferol (Vitamin D-3) 1.25 MG (35024 UT) capsuleIndications:Vit colby D deficiency TAKE ONE CAPSULE BY MOUTH TWICE A WEEK 24 capsule 11 05/08/20 25 Active Ferrous Sulfate (iron) 325 (65 Fe) MG tablet TAKE ONE TABLET EVERY MORNING WITH BREAKFAST 90 tablet 3 08/20/20 25 Active Active Problems Problem Noted Date [...] Encounters Date Type Department Care Team Description 09/19/2025 Results Follow-Up [facility] [address] [place] [address] Nori Contreras MD Chlamydia/N. Gonorrhoeae RNA, TMA, Urogenitial 08/19/2025 Refill [facility] [address] [place] [phone] Adair Jj MD from Last 3 Months [...] 12/27/2023 12/27/2022 Depression Screening 02/08/2024 02/07/2023, 02/08/20 SDOH Screening 02/08/2024 02/07/2023 COVID-19 Vaccine ( season) 2025 01/11/2022, 05/29/2021, 05/29/2021, Additional history exists Influenza Vaccine (#1) 2025 10/27/2021, 2013 Mammogram 12/27/2025 12/27/2023, 02/0 04/2024, 01/06/2023 DTaP/Tdap/Td Vaccines (2 - Td or [...] Procedure Name Priority Date/Time Associated Diagnosis Comments LH Routine 09/18/2025 12:09 PM EDT FSH Routine 09/18/2025 12:09 PM EDT TSH W/REFLEX TO FT4 Routine 09/18/2025 1 2:09 PM EDT CBC Routine 09/18/2025 12:09 PM EDT CHLAMYDIA/N. GONORRHOEAE RNA, TMA, UROGENITAL Routine 09/18/2025 11:20 AM EDT BI MAMMOGRAM DIAGNOSTIC TOMOSYNTHESIS BILATERAL Routine 12/27/2023 3:25 PM EST HM PAP/HPV Routine 02/16/2022 from Last 3 Months or Most Recently Relevant to Health Maintenance Results * TSH with Reflex to Free T4 (09/18/2025 12:09 PM EDT) TSH reflex Free T4 0.60 0.32 - 4.0 uIU/mL [facility] 09/18/2025 12:0 9 PM EDT 09/18/2025 12:12 PM EDT us Generic External Data Provider LAB BLOOD ORDERAB LES Final Result [facility] [address] [place] [phone] * (ABNORMAL) CBC (09/18/2025 12:09 PM EDT) White Blood Count 4.4(L) 4.8 - 10.8 X10*3/uL [facility] Red Blood Count 3.73(L) 4.20 - 5.50 X10*6/uL [facility] Hemoglobin 11.0(L) 12.0 - 16.0 g/dl [facility] Hematocrit 34.0(L) 37.0 - 47.0 % [facility] Mean Corpuscular Volume 91.2 80.0 - 98.0 fL [facility] Mean Corpuscular Hemoglobin 29.5 27.0 - 33.0 pg [facility] Mean Corpuscular HGB Conc 32.4 31.0 - 35.0 g/dl [facility] Red Cell Distribution Width 12.1 11.0 - 16.0 % [facility] Platelet Count 220 160 - 400 X10*3/uL [facility] Mean Platelet Volume 10.4 9.4 - 12.3 fL [facility] NRBC Pct Auto 0.0 0.0 - 0.2 /100WBC [facility] NRBC Abs Auto 0.000 0.0 - 0.012 X10*3/uL [facility] 09/18/2025 12:0 9 PM EDT 09/18/2025 12:12 PM EDT us Generic External Data Provider LAB BLOOD ORDERAB LES Final Result [facility] [address] [place] [phone] * LH (09/18/2025 12:09 PM EDT) Lutenizing Hormone 14.1 mIU/mL [facility] Comment:Reference Range Foll icular Phase 1.9-12.5 Mid-Cycle Peak 8.7-76.3 Luteal Phase 0.5-16.9 Postmenopausal 10.0-54.7THIS TEST WAS PERFORMED AT:[facility] [place] [phone] ARCINIEGA MD 09/18/2025 12:0 9 PM EDT 09/18/2025 12:12 PM EDT Generic External Data Provider LAB BLOOD ORDERAB LES Final Result Performing Organization Address [facility] Co de Phone Number [facility] [address] [place] [phone] * FSH (09/18/2025 12:09 PM EDT) Pathologist [facility] Follicle Stimulating Hormone 44.6 mIU/mL [facility] Comment:Reference Range Foll icular Phase 2.5-10.2 Mid-cycle Peak 3.1-17.7 Luteal Phase 1.5- 9.1 Postmenopausal 23.0-116.3THIS TEST WAS PERFORMED AT:[facility] [place] [phone] ARCINIEGA MD 09/18/2025 12:0 9 PM EDT 09/18/2025 12:12 PM EDT Generic External Data Provider LAB BLOOD ORDERAB LES Final Result Performing Organization Address [facility] Co de Phone Number [facility] [address] [place] [phone] * Chlamydia/N. Gonorrhoeae RNA, TMA, Urogenitial (09/18/2025 11:20 AM EDT) [facility] CT PCR NOT DETECTED Not Detect. [facility] Comment:A not detected test result does [...] psychologicalconsequences. NG PCR NOT DETECTED Not Detect. [facility] Comment:A not detected test result does [...] 0 AM EDT 09/18/2025 4:22 PM EDT Generic External Data Provider LAB MICROBIOLOGY - GENERAL ORDERABLES Final Result [facility] [address] [place] [phone] * BI Mammogram Diagnostic Tomosynthesis Bilateral (12/27/2023 3:25 PM EST) Anatomical Region Laterality Modality Breast Bilateral Mammography 12/27/2023 3:25 PM EST Narrative 12/27/2023 5:21 PM EST [facility] [address] [place] [address] [place] [address] Mammography Report Signed Patient: Umm Andersen MR#: [id number] : 1975 Acct:[id number] Age/Sex: 48 / F ADM Date: 12/27/23 Loc: [facility] Attending Dr: Geena Clark CNM Ordering Physician: Geena Clark CNM Results: 2Benign Findings Date of Service: 12/27/23 Follow Up: 1 Year From Orig inal Mammogram Procedure(s): MM tomosynthesis diagnostic BI Accession Number(s): [id number] cc: Adair Jj MD; Geena Clark CNM [...] date for their next mammogram. Dictated By: rUi Mcintyre MD Signed By: <Electronically signed by Uri Mcintyre MD in OV> 12/27/23 1717 DD/ 1525 TD/TT: Automotive Tire Technician: Procedure Note Donotuseinterpreter, Image - 12/27/2023 [facility] [address] [place] [address] Mammography Report Signed Patient: Kala Andersen#: [id number] : 1975Acct:[id number] Age/Sex: 48 / FADM Date: 12/27/23 Loc: HO.MAMMO Attending Dr: Geena Clark CNM Ordering Physician: Geena Clarkesults: 2Benign Findings Date of Service: 12/27/23Follow Up: 1 Year From Orig inal Mammogram Procedure(s): MM tomosynthesis diagnostic BI Accession Number(s): [id number] cc: Adair Jj MD; Geena Clark CNM [...] in OV> 12/27/23 1717 DD/ 1525 TD/TT: Automotive Tire Technician: [facility] External Provider IMG BI PROCEDURES Final Result * Hm Pap Smear (02/16/2022) Pap Negative for intraephithelial lesion or malignancy Negative for intraephithelial lesion or malignancy, Other HPV Undetected Undetected, Indeterminate, Quantitative, Not Detected Historical Provider HEALTH MAINTENANCE Final Result from Last 3 Months or Most Recently Relevant to Health Maintenance Insurance [facility] HSN FULL Care Teams Video Software Engineer Relationship Specialty Start Date End Date Adair Jj MD [address] [place] [phone] PCP - General Internal Medicine 03/31/20
--- OUTSIDE RECORDS SUMMARY | 2025-10-14 08:17 | XMS_ITS | Encounter Summary ---
Author Organization [facility] Address [address] [place] [phone] Phone Care Team Providers Care Hospital Medical Biller Name Role Phone Pcp, Unknown Primary Care Provider Unavailabl e Adair Jj MD Primary Care Prov ider Encounter Details Date Type Department Care Team (Late st Contact Info) Description 10/26/2021 Procedure Pass [facility] [address] [place] [address] Social History Tobacco Use Types Packs/Day Years [...] on filedocumented in this encounter Care Teams Hospital Medical Biller Relationship Specialty Start Date End Date Pcp, Unknown PCP - General 05/05/21 10/26/21 Adair Jj MD [address] [place] [address] PCP - General Internal Medicine 10/27/21 documented as of this encounter Additional Source Comments The information contained in this document represents components of the legal health record. It is not the complete legal health record.[facility]
== END 2025-10-14 08:08 | disposition home or self-care (01) ==
LOC: HO.MAMMO 08:07
PROVIDERS: PCP Internal Medicine; Visit Provider Internal Medicine
DX: Z12.31 Encounter for screening mammogram for malignant neoplasm of breast (principal)
CPT/HCPCS: 77063; 77067

== ENCOUNTER 2025-10-30 15:32 | Outpatient (REF) | payer MEDICAID, OTHER, SELFPAY ==
--- NOTE | ~2025-10-30 | US_ITS ---
EXAMINATION: US PELVIS CLINICAL INFORMATION: N93.9 - Abnormal uterine and vaginal bleeding, unspecified COMPARISON: None available. TECHNIQUE: Ultrasound of the pelvis is performed using both transabdominal and transvaginal transducers along with Doppler. Transvaginal imaging is performed due to inadequate visualization transabdominally. FINDINGS: Uterus: The uterus is anteverted and measures 10.8 x 5.6 x 6.6 cm. The myometrium of the uterus is heterogeneous. The double wall endometrial thickness is well seen given the heterogeneity of the uterus but measured approximately 4 mm. Lobulated heterogeneous mass minimal protrudes from the dorsal left uterine body and measures 4.0 x 4.2 x 4.3 cm comprehensive 2.7 x 2.7 x 2.9 cm consistent with subserosal and intramural leiomyoma. Adnexa: Both ovaries are visualized. There is normal color flow to the adnexa. There is no ovarian torsion. There is no pelvic ascites or fluid collection. Right ovary measures 3.3 x 2.6 x 2.5 cm. Left ovary measures 2.0 x 1.7 x 1.6 cm. US/US pelvic and transvaginal IMPRESSION: Coarse echotexture of the uterus suggests underlying adenomyosis. 4.3 cm subserosal uterine leiomyoma previously measured 2.9 cm. Electronically signed by: Yves Segundo MD 10/30/2025 05:20 PM MENG
--- OUTSIDE RECORDS SUMMARY | 2025-10-31 00:11 | XMS_ITS | Encounter Summary ---
Author Organization [employer] Address [address] [place] [address] 7 [place] [address] Care Team Providers Care Molding Machine Tender Name Role Phone Adair Jj MD Primary Care Prov ider Reason for Visit * Reason Onset Date Comments Referral 11/04/2023 Encounter Details Date Type Department Care Team ([facility] st Contact Info) Description 11/04/2023 Telephone [facility] MED & PEDS [address] [place], [place] [phone] Adair Jj MD 505 [place] [address] Referral Social History Tobacco Use Types Packs/Day [...] documented as of this encounter Care Teams Molding Machine Tender Relationship Specialty Start Date End Date Adair Jj MD [address] [place] [phone] PCP - General Internal Medicine 03/31/20 documented as of this encounter
--- OUTSIDE RECORDS SUMMARY | 2025-10-31 00:11 | XMS_ITS | Encounter Summary ---
Author Organization [employer] Address [address] [place] [address] 7 [place] [address] Care Team Providers Care Cloth Tester Name Role Phone Adair Jj MD Primary Care Prov ider Reason for Visit * Reason Onset Date Comments Referral 11/07/2023 Encounter Details Date Type Department Care Team ([facility] st Contact Info) Description 11/07/2023 Telephone [facility] MED & PEDS [address] [place], [place] [phone] Adair Jj MD 505 [place] [address] Referral Social History Tobacco Use Types Packs/Day [...] states pt is requesting a referral to [facility] for mammogram. documented in this encounter Plan of Treatment Not on file documented as of this encounter Visit Diagnoses Not on filedocumented in this encounter Additional Health Concerns Assessment Noted Time PHQ-9 Depression Total Score: 0 02/08/20 23 1:47 PM EDT documented as of this encounter Care Teams Cloth Tester Relationship Specialty Start Date End Date Adair Jj MD [address] [place] [phone] PCP - General Internal Medicine 03/31/20 documented as of this encounter
--- OUTSIDE RECORDS SUMMARY | 2025-10-31 00:11 | XMS_ITS | Encounter Summary ---
Author Organization [employer] Address [address] [place] [address] 7t [place] [address] Care Team Providers Care Crystal Grower Name Role Phone Adair Jj MD Primary Care Prov ider Encounter Details Date Type Department Care Team (Latest Contact Info) Description 10/15/2025 Results Follow-Up [facility] MED & PEDS [address] [place], [place] [phone] Nori Contreras MD 505 [place] [address] BI Mammogram Screening Tomosynthesis Bilateral Social History Tobacco Use Types Packs/Day Years [...] documented as of this encounter Care Teams Crystal Grower Relationship Specialty Start Date End Date Adair Jj MD [address] [place] [phone] PCP - General Internal Medicine 03/31/20 documented as of this encounter
--- OUTSIDE RECORDS SUMMARY | 2025-10-31 00:11 | XMS_ITS | Encounter Summary ---
Author Organization [employer] Address [address] [facility] 7t [place] [address] Care Team Providers Care Ground Source Heat Pump Technician Name Role Phone Adair Jj MD Primary Care Prov ider Encounter Details Date Type Department Care Team ([facility] st Contact Info) Description 05/13/[address] [facility] MED & PEDS 505 [place], [place] [phone] Nori Contreras MD 505 [place] [address] Social History Tobacco Use Types Packs/Day Years [...] t he electric, gas, oil or water [employer] threatened to shut off services in your [...] 12:09 PM EDT) Lutenizing Hormone 14.1 mIU/mL [facility] Comment:Reference Range Foll icular Phase 1.9-12.5 Mid-Cycle Peak 8.7-76.3 Luteal Phase 0.5-16.9 Postmenopausal 10.0-54.7THIS TEST WAS PERFORMED AT:[facility] [place] [id number] ARCINIEGA MD 09/18/2025 12:0 9 PM EDT 09/18/2025 12:12 PM EDT us Generic External Data Provider LAB BLOOD ORDERAB LES Final Result [facility] [address] [place] [phone] * FSH (09/18/2025 12:09 PM EDT) Follicle Stimulating Hormone 44.6 mIU/mL [facility] Comment:Reference Range Foll icular Phase 2.5-10.2 Mid-cycle Peak 3.1-17.7 Luteal Phase 1.5- 9.1 Postmenopausal 23.0-116.3THIS TEST WAS PERFORMED AT:[facility] [place] [id number] ARCINIEGA MD 09/18/2025 12:0 9 PM EDT 09/18/2025 12:12 PM EDT Generic External Data Provider LAB BLOOD ORDERAB LES Final Result Performing Organization Address [facility] Co de Phone Number [facility] [address] [place] [phone] * TSH with Reflex to Free T4 (09/18/2025 12:09 PM EDT) TSH reflex Free T4 0.60 0.32 - 4.0 uIU/mL [facility] 09/18/2025 12:0 9 PM EDT 09/18/2025 12:12 PM EDT Generic External Data Provider LAB BLOOD ORDERAB LES Final Result Performing Organization Address [facility] [place] [facility] Co de Phone Number [facility] [address] [place] [phone] * (ABNORMAL) CBC (09/18/2025 12:09 PM EDT) White Blood Count 4.4(L) 4.8 - 10.8 X10*3/uL [facility] Red Blood Count 3.73(L) 4.20 - 5.50 X10*6/uL [facility] Hemoglobin 11.0(L) 12.0 - 16.0 g/dl [facility] Hematocrit 34.0(L) 37.0 - 47.0 % [facility] Mean Corpuscular Volume 91.2 80.0 - 98.0 fL [facility] Mean Corpuscular Hemoglobin 29.5 27.0 - 33.0 pg [facility] Mean Corpuscular HGB Conc 32.4 31.0 - 35.0 g/dl [facility] Red Cell Distribution Width 12.1 11.0 - 16.0 % [facility] Platelet Count 220 160 - 400 X10*3/uL [facility] Mean Platelet Volume 10.4 9.4 - 12.3 fL [facility] NRBC Pct Auto 0.0 0.0 - 0.2 /100WBC [facility] NRBC Abs Auto 0.000 0.0 - 0.012 X10*3/uL [facility] 09/18/2025 12:0 9 PM EDT 09/18/2025 12:12 PM EDT us Generic External Data Provider LAB BLOOD ORDERAB LES Final Result [facility] [address] [place] [phone] * Chlamydia/N. Gonorrhoeae RNA, TMA, Urogenitial (09/18/2025 11:20 AM EDT) CT PCR NOT DETECTED Not Detect. [facility] Comment:A not detected test result does [...] psychologicalconsequences. NG PCR NOT DETECTED Not Detect. [facility] Comment:A not detected test result does [...] LAB MICROBIOLOGY - GENERAL ORDERABLES Final Result [facility] [address] [place] [phone] documented in this encounter Visit Diagnoses Not on filedocumented in this encounter Additional Health Concerns Assessment Noted Time PHQ-9 Depression Total Score: 0 02/08/20 23 1:47 PM EDT documented as of this encounter Care Teams Ground Source Heat Pump Technician Relationship Specialty Start Date End Date Adair Jj MD [address] [place] [phone] PCP - General Internal Medicine 03/31/20 documented as of this encounter
--- OUTSIDE RECORDS SUMMARY | 2025-10-31 00:11 | XMS_ITS | Encounter Summary ---
Author Organization [employer] Address [address] [place] [address] 7 [place] [address] Care Team Providers Care Casino Attendant Name Role Phone Adair Jj MD Primary Care Prov ider Reason for Visit * Reason Onset Date Comments Referral 10/17/2023 Encounter Details Date Type Department Care Team ([facility] st Contact Info) Description 10/17/2023 Telephone [facility] MED [facility] PEDS [address] [place], [place] [phone] Adair Jj MD 505 [place] [address] Referral Social History Tobacco Use Types Packs/Day [...] Yamila Perry - 10/19/2023 4:44 PM EST [employer] is only accepted at [facility]. * Telephone Encounter - Fercho Sanchez [...] at this time. Please contact Daughter at [phone] documented in this encounter Plan of Treatment Not on file documented as of this encounter Visit Diagnoses Not on filedocumented in this encounter Additional Health Concerns Assessment Noted Time PHQ-9 Depression Total Score: 0 02/08/20 23 1:47 PM EDT documented as of this encounter Care Teams Casino Attendant Relationship Specialty Start Date End Date Adair Jj MD [address] [place] [phone] PCP - General Internal Medicine 03/31/20 documented as of this encounter
--- OUTSIDE RECORDS SUMMARY | 2025-10-31 00:11 | XMS_ITS | Encounter Summary ---
Author Organization [employer] Address [address] [facility] 7 [place] [address] Care Team Providers Care Gas Treater Name Role Phone Adair Jj MD Primary Care Prov ider Reason for Visit * Reason Onset Date Comments Nurse Triage 05/06/2025 Encounter Details Date Type Department Care Team ([facility] st Contact Info) Description 05/06/2025 Telephone [facility] MEDICINE [address] [place] [address] Adair Jj MD 505 [place] [address] Nurse Triage Social History Tobacco Use Types [...] to see provider. ASK apt with provider [facility] at 320pm today. Pt agrees with [...] Tc from pt daughter returning phone call. [phone] * Telephone Encounter - Charlene Dallas RN - 05/06/2025 12:52 PM EDT Triage call to [phone] Pt daughter answered but, Pt not with daughter. [place] [id number] [place], Pt was called at [phone] Pt didn't answer. Voice message left to call [facility] [phone]. Call to daughter again and advised to call [facility] [phone] when daughter is with Pt and daughter [...] documented as of this encounter Care Teams Gas Treater Relationship Specialty Start Date End Date Adair Jj MD [address] [place] [phone] PCP - General Internal Medicine 03/31/20 documented as of this encounter
--- OUTSIDE RECORDS SUMMARY | 2025-10-31 00:11 | XMS_ITS | Encounter Summary ---
Author Organization [employer] Address [address] [facility] 7t [place] [address] Care Team Providers Care Jukebox Routeman Name Role Phone Adair Jj MD Primary Care Prov ider Encounter Details Date Type Department Care Team ([facility] st Contact Info) Description 12/06/2024 Telephone [facility] MEDICINE [address] [place] [address] Adair Jj MD 505 [place], [place] [phone] Social History Tobacco Use Types Packs/Day Years [...] documented as of this encounter Care Teams Jukebox Routeman Relationship Specialty Start Date End Date Adair jJ MD 505 [place] [address] PCP - General Internal Medicine 03/31/20 documented as of this encounter
--- OUTSIDE RECORDS SUMMARY | 2025-10-31 00:11 | XMS_ITS | Clinical Summary ---
Author Organization [facility] Address [address] [place] [phone] Phone Care Team Providers Care Water Softener Servicer Name Role Phone Adair Jj MD Primary [...] atorvastatin and Lopressor. Case discussed with the documentation manager. Cardiology recommended against heparin because of her [...] (10/26/2021 5:44 AM EST) HDL 60 mg/dL [facility] Comment: Interpretation <40 mg/dL: Low HDL cholesterol (major risk factor for CHD) Greater than or equal to 60 mg/dL: High HDL cholesterol ( negative risk factor for CHD) HDL - cholesterol is affected by a number of factors, e.g. smoking, excerise, hormones, sex and age. CHOLESTEROL 133 0 - 240 mg/dL [facility] TRIGLYCERIDES 72 30 - 160 mg/dL [facility] LDL 59 50 - 129 mg/dL [facility] Comment: LDL levels in terms of risk for coronary heart disease: <100 mg/dL: Optimal 100-129 mg/dL: Near or above optimal 130-159 mg/dL: Borderline high 160-189 mg/dL: High >190 mg/dL: Very High CARDIAC RISK RATIO 2.2(L) 3.3 - 4.4 [facility] Blood 10/26/2021 5:44 AM EST 10/26/2021 6:20 AM EST us Pawel De Paz DO LAB BLOOD BKR ORDERABLES [facility] l Result [address] [address] * Pap Smear (06/15/2021 12:00 AM EDT) 06/15/2021 06/16/2021 8:4 0 AM EDT Narrative SEE NARRATIVE - 06/18/2021 3:08 PM EDT [address] [address] Hydro Pneumatic Tester: Lesia Johnson MD AUTO BUMPER MECHANIC Cytology Report FINAL DIAGNOSIS A. PAP SMEAR [...] 52, 56, 58, 59, 66, 68) by [facility] Onclarity HR-HPV analysis. Clinical correlation is advised. This HPV test was performed at [facility], [address] [place] [address]. This test has been FDA approved for [facility] cervical cytology specimens. The accuracy and precision of this test for all other specimen sources has been verified in the Cytopathology Laboratory of the [facility] and has not been cleared or approved by the U.S. Food and Drug Administration. Clinical correlation is advised. CLINICAL HISTORY Date of Last Menstrual Period: 06-10-2021 Contraceptive History: IUD Other Clinical Conditions: Screening Pap SPECIMEN SOURCE A: PAP SMEAR (SUREPATH) CE Patient Name: UMM CRUZ : 1975 (Age: 45) Sex: F Institution: [facility] Location: [facility] Date of Collection: 06/15/2021 Date of Reported: 06/18/2021 15:07 Results to: Lilian Vizcarra MSN, BS Lilian Vizcarra HALL WORKER CYTOLOGY ORDERABLES Edited Res ult - Final SEE NARRATIVE from Last 3 Months or Most Recently Relevant to Health Maintenance Insurance [employer] NET [employer] S[employer]Y NET FULL [employer] LIMITED SAF[employer]Y NET FULL HEALTH SAFETY NET FULL [facility] LIMITED HEALTH SAFETY NET FULL Advance Directives For more information, please contact: [phone] (9AM - 5PM [place], Tuesday-Tuesday) * Full Code (Latest Code Status on File) Date Activated Date Inactivated Comments 10/25/2021 7:48 AM Question Answer Comments Code Status Confirmed With: PatientFamily Care Teams Water Softener Servicer Relationship Specialty Start Date End Date Adair Jj MD [address] [place] [phone] PCP - General Internal Medicine 10/27/21 Additional Source Comments The information contained in this document represents components of the legal health record. It is not the complete legal health record.[facility]
--- OUTSIDE RECORDS SUMMARY | 2025-10-31 00:12 | XMS_ITS | Clinical Summary ---
Author Organization [facility] Address [address] [place] [address] Care Team Providers Care Tamping Machine Operator Name Role Phone Adair Jj MD [...] patient's age to complete this topic [place] [address] [place] [address] HSNO/FREE CARE Care Teams Tamping Machine Operator Relationship Specialty Start Date End Date Adair Jj MD [address] [place] [phone] PCP - General 07/22/23
--- OUTSIDE RECORDS SUMMARY | 2025-10-31 00:12 | XMS_ITS | Encounter Summary ---
Author Organization [employer] Address [address] [place] [address] Care Team Providers Care Garde Manger Name Role Phone Adair Jj MD Primary Care Prov ider Encounter Details Date Type Department Care Team ([facility] st Contact Info) Description 12/03/2022 Orders Only [facility] [address] [place] [address] Jasmine Carballo LPN Social History Tobacco Use [...] 4:05 PM EST) HCG Quantitative <2 mIU/mL [facility] Comment:Weeks post LMP Appro ximate hCG(Last Menstrual Period) Range (mIU/ml)3 - 4 weeks 9 - 1304 - 5 weeks 75 - 2,6005 - 6 weeks 850 - 20,8006 - 7 weeks 4000 - 100,2007 - 12 weeks 11,500 - 289,11579 - 16 weeks 18,300 - 137,00756 - 29 weeks (2nd trimester) 1,400 - 53,37836 - 41 weeks (3rd trimester) 940 - 60,000The Arredondo B- hCG assay is used for the early detection ofpregnancy; it cannot be used to diagnose any conditionunrelated to . If a B-hCG level is not supportedby the clinical evidence, results should be confirmed by analternative method (qualitative urine hCG, for example). 12/30/2022 4:0 5 PM EST 12/30/2022 4:06 PM EST [facility] External Provider LAB BLO OD ORDERABLES Final Result Performing Organization Address [facility]/ZIP Co de Phone Number [facility] [address] [place] [phone] * TSH W/Reflex to FT4 (12/30/2022 4:05 PM EST) TSH reflex Free T4 0.57 0.32 - 4.0 uIU/mL [facility] 12/30/2022 4:05 PM EST 12/30/2022 4:06 PM EST [facility] External Provider LAB BLO OD ORDERABLES Final Result Performing Organization Address City/[facility]/ZIP Co de Phone Number [facility] [address] [place] [address] [phone] * (ABNORMAL) CBC (12/30/2022 4:05 PM EST) White Blood Count 6.1 4.8 - 10.8 X10*3/uL [facility] Red Blood Count 3.48(L) 4.20 - 5.50 X10*6/uL [facility] Hemoglobin 10.3(L) 12.0 - 16.0 g/dl [facility] Hematocrit 32.3(L) 37.0 - 47.0 % [facility] Mean Corpuscular Volume 92.8 80.0 - 98.0 fL [facility] Mean Corpuscular Hemoglobin 29.6 27.0 - 33.0 pg [facility] Mean Corpuscular HGB Conc 31.9 31.0 - 35.0 g/dl [facility] Red Cell Distribution Width 13.9 11.0 - 16.0 % [facility] Platelet Count 246 160 - 400 X10*3/uL [facility] Mean Platelet Volume 11.3 9.4 - 12.3 fL [facility] NRBC Pct Auto 0.0 0.0 - 0.2 /100WBC [facility] NRBC Abs Auto 0.000 0.0 - 0.012 X10*3/uL [facility] 12/30/2022 4:05 PM EST 12/30/2022 4:06 PM EST us [facility] External Provider LAB BLO OD ORDERABLES Final Result Performing Organization Address City/State/[facility] Co de Phone Number [facility] [address] [place] [address] [phone] * Hematoxylin and Eosin Stain (12/30/2022 3:28 PM EST) 12/30/2022 3:28 PM EST 12/31/2022 6:27 AM EST Narrative [facility] - 01/03/2023 4:02 PM EST ----- ------- Name: Umm Andersen Age/Sex: 47/F : 1975 Unit#: [id number] Attend Dr: Get Smith MD Re12/30/22 Status: [facility] REF Location: [facility] Disch: ----- ------- SPEC : [id number] RECD: 12/31/22 STATUS: EYAD ROME NUM: [id number] DYLLAN: 12/30/[address] [facility] [address]: Get Smith MD ENTERED: 12/31/22 SP TYPE: Surgical OTHR DR: [facility] ORDERED: HE Stain/2, Gross Micro L4 Diagnosis [...] single cassette labeled A. CEDS Copies To: [address] [id number] Get Smith MD [address] [place], [place] [address]Gagandeep [address] [address] ----- ------- Signed (signature on file) Carolina Gill 01/03/23 1602 ----- ------- END OF REPORT [facility] External Provider LAB BLO OD ORDERABLES Final Result [facility] [address] [place] [address] [phone] * (ABNORMAL) Basic Metabolic Panel (12/29/2022 4:10 PM EST) Sodium 141 135 - 145 mmol/L [facility] Potassium 3.6 3.3 - 5.1 mmol/L [facility] Chloride 108 96 - 108 mmol/L [facility] Carbon Dioxide 23 22 - 29 mmol/L [facility] Anion Gap 14 12 - 20 [facility] Urea Nitrogen (BUN) 8(L) 9 - 16 mg/dL [facility] Creatinine, Serum 0.68 0.5 - 1.4 mg/dL [facility] Creatinine Clr Calc Pharmacy 113.9 [facility] Comment:Provided height and weight: 162.56 cm,90.718 kg.eGFR (calculated from the MDRD study equation) and eCrCl(calculated from the Cockcroft-Gault equation) are based ondifferent parameters and may not yield comparable results.If eCrCl result is absurd, please check patient'sheight/weight. Estimated Glomerular Filt Rate >60 [facility] Comment:NOTE: For -Am erican individuals, multiply the result by 1.210.Chronic Kidney Disease: Estimated GFR < 60 mL/min/1.56i0Bxyrkq Kidney Disease: Estimated GFR < 15 mL/min/1.73m2 Glucose 107 60 - 115 mg/dL [facility] Calcium 7.7(L) 8.4 - 10.2 mg/dL [facility] 12/29/2022 4:10 PM EST 12/29/2022 4:17 PM EST us [facility] External Provider LAB BLO OD ORDERABLES Final Result [facility] [address] [place] [phone] * (ABNORMAL) CBC auto differential (12/29/2022 4:10 PM EST) White Blood Count 5.8 4.8 - 10.8 X10*3/uL [facility] Red Blood Count 3.29(L) 4.20 - 5.50 X10*6/uL [facility] Hemoglobin 10.1(L) 12.0 - 16.0 g/dl [facility] Hematocrit 30.1(L) 37.0 - 47.0 % [facility] Mean Corpuscular Volume 91.5 80.0 - 98.0 fL [facility] Mean Corpuscular Hemoglobin 30.7 27.0 - 33.0 pg [facility] Mean Corpuscular HGB Conc 33.6 31.0 - 35.0 g/dl [facility] Red Cell Distribution Width 13.9 11.0 - 16.0 % [facility] Platelet Count 205 160 - 400 X10*3/uL [facility] Mean Platelet Volume 10.4 9.4 - 12.3 fL [facility] Neutrophils Percent Auto 69.8 45 - 73 % [facility] Imm Gran Pct Auto 0.5(H) 0.0 - 0.4 % [facility] Lymphocytes Percent Auto 22.6 20 - 40 % [facility] Monocytes Percent Auto 5.7 2 - 11 % [facility] Eosinophils Percent Auto 0.9 0 - 4 % [facility] Basophils Percent Auto 0.5 0 - 2 % [facility] NRBC Pct Auto 0.0 0.0 - 0.2 /100WBC [facility] Neutrophils Absolute Auto 4.0 2.0 - 8.3 x10*3/uL [facility] Imm Gran Abs Auto 0.03 0.00 - 0.03 X10*3/uL [facility] Lymphocytes Absolute Auto 1.3 1.2 - 4.9 X10*3/uL [facility] Monocytes Absolute Auto 0.3 0.1 - 1.2 X10*3/uL [facility] Eosinophils Absolute Auto 0.1 0.0 - 0.4 X10*3/uL [facility] Basophils Absolute Auto 0.0 0.0 - 0.2 X10*3/uL [facility] NRBC Abs Auto 0.000 0.0 - 0.012 X10*3/uL [facility] 12/29/2022 4:10 PM EST 12/29/2022 4:17 PM EST us [facility] External Provider LAB BLO OD ORDERABLES Final Result [facility] [address] [place] [address] [phone] * (ABNORMAL) CBC auto differential (12/28/2022 11:45 PM EST) White Blood Count 6.7 4.8 - 10.8 X10*3/uL [facility] Red Blood Count 3.13(L) 4.20 - 5.50 X10*6/uL [facility] Hemoglobin 9.5(L) 12.0 - 16.0 g/dl [facility] Hematocrit 28.4(L) 37.0 - 47.0 % [facility] Mean Corpuscular Volume 90.7 80.0 - 98.0 fL [facility] Mean Corpuscular Hemoglobin 30.4 27.0 - 33.0 pg [facility] Mean Corpuscular HGB Conc 33.5 31.0 - 35.0 g/dl [facility] Red Cell Distribution Width 13.8 11.0 - 16.0 % [facility] Platelet Count 190 160 - 400 X10*3/uL [facility] Mean Platelet Volume 10.6 9.4 - 12.3 fL [facility] Neutrophils Percent Auto 57.4 45 - 73 % [facility] Imm Gran Pct Auto 0.1 0.0 - 0.4 % [facility] Lymphocytes Percent Auto 34.6 20 - 40 % [facility] Monocytes Percent Auto 6.4 2 - 11 % [facility] Eosinophils Percent Auto 0.9 0 - 4 % [facility] Basophils Percent Auto 0.6 0 - 2 % [facility] NRBC Pct Auto 0.0 0.0 - 0.2 /100WBC [facility] Neutrophils Absolute Auto 3.8 2.0 - 8.3 x10*3/uL [facility] Imm Gran Abs Auto 0.01 0.00 - 0.03 X10*3/uL [facility] Lymphocytes Absolute Auto 2.3 1.2 - 4.9 X10*3/uL [facility] Monocytes Absolute Auto 0.4 0.1 - 1.2 X10*3/uL [facility] Eosinophils Absolute Auto 0.1 0.0 - 0.4 X10*3/uL [facility] Basophils Absolute Auto 0.0 0.0 - 0.2 X10*3/uL [facility] NRBC Abs Auto 0.000 0.0 - 0.012 X10*3/uL [facility] 12/28/2022 11:4 5 PM EST 12/28/2022 11:48 PM EST us [facility] External Provider LAB BLO OD ORDERABLES Final Result [facility] [address] [place] [address] [phone] * (ABNORMAL) CBC auto differential (12/28/2022 9:55 PM EST) White Blood Count 6.2 4.8 - 10.8 X10*3/uL [facility] Red Blood Count 3.07(L) 4.20 - 5.50 X10*6/uL [facility] Hemoglobin 9.1(L) 12.0 - 16.0 g/dl [facility] Hematocrit 27.8(L) 37.0 - 47.0 % [facility] Mean Corpuscular Volume 90.6 80.0 - 98.0 fL [facility] Mean Corpuscular Hemoglobin 29.6 27.0 - 33.0 pg [facility] Mean Corpuscular HGB Conc 32.7 31.0 - 35.0 g/dl [facility] Red Cell Distribution Width 13.9 11.0 - 16.0 % [facility] Platelet Count 199 160 - 400 X10*3/uL [facility] Mean Platelet Volume 10.5 9.4 - 12.3 fL [facility] Neutrophils Percent Auto 60.8 45 - 73 % [facility] Imm Gran Pct Auto 0.2 0.0 - 0.4 % [facility] Lymphocytes Percent Auto 31.6 20 - 40 % [facility] Monocytes Percent Auto 6.0 2 - 11 % [facility] Eosinophils Percent Auto 0.8 0 - 4 % [facility] Basophils Percent Auto 0.6 0 - 2 % [facility] NRBC Pct Auto 0.0 0.0 - 0.2 /100WBC [facility] Neutrophils Absolute Auto 3.8 2.0 - 8.3 x10*3/uL [facility] Imm Gran Abs Auto 0.01 0.00 - 0.03 X10*3/uL [facility] Lymphocytes Absolute Auto 2.0 1.2 - 4.9 X10*3/uL [facility] Monocytes Absolute Auto 0.4 0.1 - 1.2 X10*3/uL [facility] Eosinophils Absolute Auto 0.1 0.0 - 0.4 X10*3/uL [facility] Basophils Absolute Auto 0.0 0.0 - 0.2 X10*3/uL [facility] NRBC Abs Auto 0.000 0.0 - 0.012 X10*3/uL [facility] 12/28/2022 9:55 PM EST 12/28/2022 9:58 PM EST [facility] External Provider LAB BLO OD ORDERABLES Final Result [facility] [address] [place], [place] [phone] * (ABNORMAL) CBC auto differential (12/28/2022 9:17 PM EST) White Blood Count 6.0 4.8 - 10.8 X10*3/uL [facility] Red Blood Count 3.02(L) 4.20 - 5.50 X10*6/uL [facility] Hemoglobin 9.1(L) 12.0 - 16.0 g/dl [facility] Hematocrit 27.4(L) 37.0 - 47.0 % [facility] Mean Corpuscular Volume 90.7 80.0 - 98.0 fL [facility] Mean Corpuscular Hemoglobin 30.1 27.0 - 33.0 pg [facility] Mean Corpuscular HGB Conc 33.2 31.0 - 35.0 g/dl [facility] Red Cell Distribution Width 14.0 11.0 - 16.0 % [facility] Platelet Count 193 160 - 400 X10*3/uL [facility] Mean Platelet Volume 10.4 9.4 - 12.3 fL [facility] Neutrophils Percent Auto 59.9 45 - 73 % [facility] Imm Gran Pct Auto 0.0 0.0 - 0.4 % [facility] Lymphocytes Percent Auto 32.7 20 - 40 % [facility] Monocytes Percent Auto 6.2 2 - 11 % [facility] Eosinophils Percent Auto 0.7 0 - 4 % [facility] Basophils Percent Auto 0.5 0 - 2 % [facility] NRBC Pct Auto 0.0 0.0 - 0.2 /100WBC [facility] Neutrophils Absolute Auto 3.6 2.0 - 8.3 x10*3/uL [facility] Imm Gran Abs Auto 0.00 0.00 - 0.03 X10*3/uL [facility] Lymphocytes Absolute Auto 2.0 1.2 - 4.9 X10*3/uL [facility] Monocytes Absolute Auto 0.4 0.1 - 1.2 X10*3/uL [facility] Eosinophils Absolute Auto 0.0 0.0 - 0.4 X10*3/uL [facility] Basophils Absolute Auto 0.0 0.0 - 0.2 X10*3/uL [facility] NRBC Abs Auto 0.000 0.0 - 0.012 X10*3/uL [facility] 12/28/2022 9:17 PM EST 12/28/2022 9:20 PM EST us [facility] External Provider LAB BLO OD ORDERABLES Final Result [facility] [address] [place], [place] [phone] * (ABNORMAL) CBC auto differential (12/28/2022 8:13 PM EST) White Blood Count 5.8 4.8 - 10.8 X10*3/uL [facility] Red Blood Count 3.04(L) 4.20 - 5.50 X10*6/uL [facility] Hemoglobin 9.1(L) 12.0 - 16.0 g/dl [facility] Hematocrit 27.6(L) 37.0 - 47.0 % [facility] Mean Corpuscular Volume 90.8 80.0 - 98.0 fL [facility] Mean Corpuscular Hemoglobin 29.9 27.0 - 33.0 pg [facility] Mean Corpuscular HGB Conc 33.0 31.0 - 35.0 g/dl [facility] Red Cell Distribution Width 14.0 11.0 - 16.0 % [facility] Platelet Count 210 160 - 400 X10*3/uL [facility] Mean Platelet Volume 10.7 9.4 - 12.3 fL [facility] Neutrophils Percent Auto 58.8 45 - 73 % [facility] Imm Gran Pct Auto 0.3 0.0 - 0.4 % [facility] Lymphocytes Percent Auto 33.2 20 - 40 % [facility] Monocytes Percent Auto 6.3 2 - 11 % [facility] Eosinophils Percent Auto 0.9 0 - 4 % [facility] Basophils Percent Auto 0.5 0 - 2 % [facility] NRBC Pct Auto 0.0 0.0 - 0.2 /100WBC [facility] Neutrophils Absolute Auto 3.4 2.0 - 8.3 x10*3/uL [facility] Imm Gran Abs Auto 0.02 0.00 - 0.03 X10*3/uL [facility] Lymphocytes Absolute Auto 1.9 1.2 - 4.9 X10*3/uL [facility] Monocytes Absolute Auto 0.4 0.1 - 1.2 X10*3/uL [facility] Eosinophils Absolute Auto 0.1 0.0 - 0.4 X10*3/uL [facility] Basophils Absolute Auto 0.0 0.0 - 0.2 X10*3/uL [facility] NRBC Abs Auto 0.000 0.0 - 0.012 X10*3/uL [facility] 12/28/2022 8:13 PM EST 12/28/2022 8:15 PM EST us [facility] External Provider LAB BLO OD ORDERABLES Final Result [facility] [address] [place] [address] [phone] * Chlamydia/N. Gonorrhoeae RNA, TMA, Urogenitial (12/28/2022 6:28 PM EST) CT PCR NOT DETECTED Not Detect. [facility] Comment:A not detected test result [...] psychologicalconsequences. NG PCR NOT DETECTED Not Detect. [facility] Comment:A not detected test result [...] PM EST 12/28/2022 6:36 PM EST Narrative [facility] - 12/29/2022 9:14 AM EST Vaginal us [facility] Exter nal Provider LAB MICROBIOLOGY - GENERAL ORDERABLES Final Result [facility] [address] [place] [address] [phone] * SureSwab?? Advanced Vaginitis, TMA (12/28/2022 6:28 PM EST) Trichomonas DNA Probe Negative Negative [facility] Gardnerella DNA Probe Negative Negative [facility] Emma DNA Probe Negative Negative [facility] 12/28/2022 6:28 PM EST 12/28/2022 6:36 PM EST [facility] Exter nal Provider LAB BODY FLUIDS AND STOOLS ORDERABLES Final Result Performing Organization Address [facility] de Phone Number [facility] [address] [place] [address] [phone] * Wet prep, genital (12/28/2022 6:28 PM EST) 12/28/2022 6:28 PM EST 12/28/2022 6:36 PM EST Comment:Vaginal Narrative [facility] - 12/28/2022 6:40 PM EST Trichomonas Prep Direct Microscopic Exam Trichomonas Prep No trichomonads or yeast seen Specimen Source: Vaginal [facility] Exter nal Provider LAB MICROBIOLOGY - GENERAL ORDERABLES Final Result Performing Organization Address [facility] de Phone Number [facility] [address] [place] [address] [phone] * Culture, Urine, Routine (12/28/2022 5:53 PM EST) 12/28/2022 5:53 PM EST 12/28/2022 5:53 PM EST Comment:UACC Narrative [facility] - 12/30/2022 12:23 PM EST Urine Culture Report Result Urine Culture 50,000 to 100,000 cfu/ml Urine Culture Mixed bacterial sarina characteristic of Urine Culture urogenital contamination. Strep agalactiae (Grp B) Quant < 10,000 cfu/mL Susc N/A Susceptibility not routinely performed on this isolate. Specimen Source: Urine clean catch [facility] Exter nal Provider LAB MICROBIOLOGY - GENERAL ORDERABLES Final Result Performing Organization Address [facility] de Phone Number [facility] [address] [place] [address] [phone] * (ABNORMAL) Urinalysis, Complete, with Reflex to Culture (12/28/2022 5:11 PM EST) Color Urine RED [facility] Appearance Urine Turbid [facility] PH 5.5 5.0 - 9.0 [facility] Glucose Urine UA Negative Negative mg/dL [facility] Urine Blood Large (3+)(A) Negative [facility] Specific [place] - Urine 1.020 1.005 - 1.025 [facility] Urine Protein 100 (2+)(A) Neg-Trace mg/dL [facility] Urine Ketones Trace Negative mg/dL [facility] Nitrite Urine Positive(A) Negative [facility] Leukocyte Esterase Urine Trace(A) Negative [facility] RBC Urine >20(A) 0 - 2 /HPF [facility] Urine WBC 0-5 0 - 5 /HPF [facility] Urine Squamous Epithelial Cell 0-2 0 - 2 /HPF [facility] Urine Bacteria Trace None Seen [facility] Hyaline Casts, Urine 0-2 0 - 2 /LPF [facility] 12/28/2022 5:11 PM EST 12/28/2022 5:14 PM EST Narrative [facility] - 12/28/2022 5:52 PM EST [id number], Clean Catch [facility] External Provider LAB URI NE ORDERABLES Final Result [facility] [address] [place] [phone] * (ABNORMAL) CBC auto differential (12/28/2022 5:09 PM EST) White Blood Count 5.8 4.8 - 10.8 X10*3/uL [facility] Red Blood Count 3.19(L) 4.20 - 5.50 X10*6/uL [facility] Hemoglobin 9.5(L) 12.0 - 16.0 g/dl [facility] Hematocrit 29.2(L) 37.0 - 47.0 % [facility] Mean Corpuscular Volume 91.5 80.0 - 98.0 fL [facility] Mean Corpuscular Hemoglobin 29.8 27.0 - 33.0 pg [facility] Mean Corpuscular HGB Conc 32.5 31.0 - 35.0 g/dl [facility] Red Cell Distribution Width 13.9 11.0 - 16.0 % [facility] Platelet Count 211 160 - 400 X10*3/uL [facility] Mean Platelet Volume 10.5 9.4 - 12.3 fL [facility] Neutrophils Percent Auto 58.5 45 - 73 % [facility] Imm Gran Pct Auto 0.2 0.0 - 0.4 % [facility] Lymphocytes Percent Auto 32.9 20 - 40 % [facility] Monocytes Percent Auto 6.7 2 - 11 % [facility] Eosinophils Percent Auto 1.0 0 - 4 % [facility] Basophils Percent Auto 0.7 0 - 2 % [facility] NRBC Pct Auto 0.0 0.0 - 0.2 /100WBC [facility] Neutrophils Absolute Auto 3.4 2.0 - 8.3 x10*3/uL [facility] Imm Gran Abs Auto 0.01 0.00 - 0.03 X10*3/uL [facility] Lymphocytes Absolute Auto 1.9 1.2 - 4.9 X10*3/uL [facility] Monocytes Absolute Auto 0.4 0.1 - 1.2 X10*3/uL [facility] Eosinophils Absolute Auto 0.1 0.0 - 0.4 X10*3/uL [facility] Basophils Absolute Auto 0.0 0.0 - 0.2 X10*3/uL [facility] NRBC Abs Auto 0.000 0.0 - 0.012 X10*3/uL [facility] 12/28/2022 5:09 PM EST 12/28/2022 5:14 PM EST [facility] External Provider LAB BLO OD ORDERABLES Final Result Performing Organization Address [facility] Co de Phone Number [facility] [address] [place] [phone] * Red blood count (12/28/2022 5:08 PM EST) Red Blood Cells: [id number] AN RC TRANSFUSED 12/28/22 2258 [facility] 12/28/2022 5:08 PM EST 12/28/2022 5:16 PM EST [facility] External Provider LAB BLO OD ORDERABLES Final Result Performing Organization Address [facility] de Phone Number [facility] [address] [place] [phone] * Type and screen (12/28/2022 5:08 PM EST) Blood Type AN [facility] Antibody Screen NEGATIVE [facility] 12/28/2022 5:08 PM EST 12/28/2022 5:16 PM EST Narrative [facility] - 12/28/2022 11:54 PM EST Results at Issue Units as of 12/28/22 2300 ...Test View Group: Most Recent HGB HCT Results LABORATORYDate Time Test Result Flag Normal Range12/28/222154 HGB 9.1 L 12.0-16.0 g/dl12/28/225 HCT 27.8 L 37.0-47.0 % Hgb 7-9 gmNo [facility] External Provider LAB BLO OD BANK TEST ORDERABLES Final Result Performing Organization Address [facility] Co de Phone Number [facility] [address] [place] [phone] * HCG, Total, Quantitative (12/28/2022 5:08 PM EST) HCG Quantitative <2 mIU/mL [facility] Comment:Weeks post LMP Appr oximate hCG(Last Menstrual Period) Range (mIU/ml)3 - 4 weeks 9 - 1304 - 5 weeks 75 - 2,6005 - 6 weeks 850 - 20,8006 - 7 weeks 4000 - 100,2007 - 12 weeks 11,500 - 289,25164 - 16 weeks 18,300 - 137,02766 - 29 weeks (2nd trimester) 1,400 - 53,93947 - 41 weeks (3rd trimester) 940 - 60,000The Arredondo B-hCG assay is used for the early detection ofpregnancy; it cannot be used to diagnose any conditionunrelated to . If a B-hCG level is not supportedby the clinical evidence, results should be confirmed by analternative method (qualitative urine hCG, for example). 12/28/2022 5:08 PM EST 12/28/2022 5:14 PM EST [facility] External Provider LAB BLO OD ORDERABLES Final Result Performing Organization Address [facility] de Phone Number [facility] [address] [place] [phone] * (ABNORMAL) Comprehensive Metabolic Panel (12/28/2022 5:08 PM EST) Sodium 140 135 - 145 mmol/L [facility] Potassium 3.9 3.3 - 5.1 mmol/L [facility] Chloride 105 96 - 108 mmol/L [facility] Carbon Dioxide 25 22 - 29 mmol/L [facility] Anion Gap 14 12 - 20 [facility] Urea Nitrogen (BUN) 11 9 - 16 mg/dL [facility] Creatinine, Serum 0.70 0.5 - 1.4 mg/dL [facility] Creatinine Clr Calc Pharmacy 110.7 [facility] Comment:Provided height and weight: 162.56 cm,90.718 kg.eGFR (calculated from the MDRD study equation) and eCrCl(calculated from the Cockcroft-Gault equation) are based ondifferent parameters and may not yield comparable results.If eCrCl result is absurd, please check patient'sheight/weight. Estimated Glomerular Filt Rate >60 [facility] Comment:NOTE: For -Am erican individuals, multiply the result by 1.210.Chronic Kidney Disease: Estimated GFR < 60 mL/min/1.76e1Bpzklh Kidney Disease: Estimated GFR < 15 mL/min/1.73m2 Glucose 96 60 - 115 mg/dL [facility] Calcium 8.0(L) 8.4 - 10.2 mg/dL [facility] Bilirubin, Total 0.5 0.0 - 1.0 mg/dL [facility] Aspartate Amino Transferase 14 5 - 31 U/L [facility] Alanine Aminotransferase 10 0 - 31 U/L [facility] Total Protein 6.1(L) 6.5 - 8.0 g/dL [facility] Albumin Level 3.7 3.5 - 5.0 g/dL [facility] Alkaline Phosphatase 40 39 - 117 U/L [facility] 12/28/2022 5:08 PM EST 12/28/2022 5:14 PM EST [facility] External Provider LAB BLO OD ORDERABLES Final Result [facility] [address] [place] [address] [phone] documented in this encounter Visit Diagnoses Not on filedocumented in this encounter Care Teams Garde Manger Relationship Specialty Start Date End Date Adair Jj MD [address] [place] [address] PCP - General Internal Medicine 03/31/20 documented as of this encounter
--- OUTSIDE RECORDS SUMMARY | 2025-10-31 00:12 | XMS_ITS | Encounter Summary ---
Author Organization [facility] Address [address] [place] [phone] Phone Care Team Providers Care Piece Marker Small Arms Name Role Phone Unknown, Unknown Primary Care Provider Zoe egan Pcp, Unknown Primary Care Provider Unavailabl e Pcp, Unknown Primary Care Provider Unavailnayely e Adair Jj MD Primary Care Prov ider Encounter Details Date Type Department Care Team (Late st Contact Info) Description 02/07/2018 Procedure Pass [facility], Ct Scan - [address] [address] Social History Tobacco Use Types Packs/Day Years [...] on filedocumented in this encounter Care Teams Piece Marker Small Arms Relationship Specialty Start Date End Date Unknown, Unknown, PCP - General 02/07/18 07/20/20 Pcp, Unknown PCP - General 07/21/20 05/04/21 Pcp, Unknown PCP - General 05/05/21 10/26/21 Adair Jj MD [address] [place] [phone] PCP - General Internal Medicine 10/27/21 documented as of this encounter Additional Source Comments The information contained in this document represents components of the legal health record. It is not the complete legal health record.[facility]
--- OUTSIDE RECORDS SUMMARY | 2025-10-31 00:12 | XMS_ITS | Encounter Summary ---
Author Organization [employer] Address [address] [place] [address] 7[address] [place] [address] Care Team Providers Care Electronics Maintenance Technician Name Role Phone Adair Jj MD Primary Care Prov ider Encounter Details Date Type Department [facility] Description 09/19/2025 Results Follow-Up [facility] [address] [place], [place] [phone] Nori Contreras MD [address] [place] [address] Chlamydia/N. Gonorrhoeae RNA, TMA, Urogenitial Social History [...] documented as of this encounter Care Teams Electronics Maintenance Technician Relationship Specialty Start Date End Date Adair Jj MD [address] [place] [address] PCP - General Internal Medicine 03/31/20 documented as of this encounter
--- OUTSIDE RECORDS SUMMARY | 2025-10-31 00:12 | XMS_ITS | Encounter Summary ---
Author Organization [facility] Address [address] [place] [phone] Phone Care Team Providers Care Zig Zag Stitcher Name Role Phone Pcp, Unknown Primary Care Provider Unavailabl e Adair Jj MD Primary Care Prov ider Encounter Details Date Type Department Care Team (Late st Contact Info) Description 10/26/2021 Procedure Pass [facility] [address] [place] [address] Social History Tobacco Use Types Packs/Day Years [...] on filedocumented in this encounter Care Teams Zig Zag Stitcher Relationship Specialty Start Date End Date Pcp, Unknown PCP - General 05/05/21 10/26/21 Adair Jj MD [address] [place] [address] PCP - General Internal Medicine 10/27/21 documented as of this encounter Additional Source Comments The information contained in this document represents components of the legal health record. It is not the complete legal health record.[facility]
--- OUTSIDE RECORDS SUMMARY | 2025-10-31 00:12 | XMS_ITS | Clinical Summary ---
Author Organization [employer] Address [address] [facility] [address] [place] [address] Care Team Providers Care International Nurse Name Role Phone Adair Jj MD Primary [...] 25 Active cholecalciferol (Vitamin D-3) 1.25 MG (72057 UT) capsuleIndications:Vit colby D deficiency TAKE ONE [...] Encounters Date Type Department Care Team Description 10/15/2025 Results Follow-Up [facility] [address] [place] [address] Nori Contreras MD BI Mammogram Screening Tomosynthesis Bilateral 10/14/2025 Orders Only [facility] [address] [place] [address] Nori Contreras MD 09/19/2025 Results Follow-Up [facility] [address] [place] [address] Nori Contreras MD Chlamydia/N. Gonorrhoeae RNA, TMA, Urogenitial 08/19/2025 Refill [facility] [address] [place] [address] Adair Jj MD from Last 3 Months [...] exists Influenza Vaccine (#1) 2025 10/27/2021, 2013 DTaP/Tdap/Td Vaccines (2 - Td or Tdap) 11/19/2026 11/19/2016 Cervical Cancer Screening 02/16/2027 HPV/Cotest 02/16/2027 02/16/2022 Pap Smear 02/16/2027 02/16/2022 Zoster Vaccines (1 of 2) 2027 Mammogram 10/14/2027 10/14/2025, 0204/2024, 12/27/2023, Additional history exists RSV Patients and Patients Aged 60 years [...] Procedure Name Priority Date/Time Associated Diagnosis Comments US PELVIS TRANSVAGINAL Routine 3:50 PM EST BI MAMMOGRAM SCREENING TOMOSYNTHESIS BILATERAL Routine 10/14/2025 8:24 AM EST LH Routine 09/18/2025 12:09 PM EDT FSH Routine 09/18/2025 12:09 PM EDT TSH W/REFLEX TO FT4 Routine 09/18/2025 1 2:09 PM EDT CBC Routine 09/18/2025 12:09 PM EDT CHLAMYDIA/N. GONORRHOEAE RNA, TMA, UROGENITAL Routine 09/18/2025 11:20 AM EDT HM PAP/HPV Routine 02/16/2022 from Last 3 Months or Most Recently Relevant to Health Maintenance Results * US Pelvis Transvaginal (10/30/2025 3:50 PM EST) Anatomical Region Laterality Modality Pelvis Ultrasound 10/30/2025 3:50 PM EST Narrative 10/30/2025 5:23 PM EST [address] [address] Ultrasound Report Signed Patient: Umm Andersen MR#: [id number] : 1975 Acct:[id number] Age/Sex: 50 / F ADM Date: 10/30/25 Loc: .US Attending Dr: Get Smith MD Ordering Physician: Get Smith MD Date of Service: 10/30/25 Procedure(s): US pelvic and transvaginal Accession Number(s): [id number] cc: Nori Contreras MD; Get Smith MD Reason for Exam: N93.9 - Abnormal uterine and vaginal bleeding, unspecified EXAMINATION: US PELVIS CLINICAL INFORMATION: N93.9 - Abnormal uterine and vaginal bleeding, unspecified COMPARISON: None available. TECHNIQUE: Ultrasound of the pelvis is performed using both transabdominal and transvaginal transducers along with Doppler. Transvaginal imaging is performed due to inadequate visualization transabdominally. FINDINGS: Uterus: The uterus is anteverted and measures 10.8 x 5.6 x 6.6 cm. The myometrium of the uterus is heterogeneous. The double wall endometrial thickness is well seen given the heterogeneity of the uterus but measured approximately 4 mm. Lobulated heterogeneous mass minimal protrudes from the dorsal left uterine body and measures 4.0 x 4.2 x 4.3 cm comprehensive 2.7 x 2.7 x 2.9 cm consistent with subserosal and intramural leiomyoma. Adnexa: Both ovaries are visualized. There is normal color flow to the adnexa. There is no ovarian torsion. There is no pelvic ascites or fluid collection. Right ovary measures 3.3 x 2.6 x 2.5 cm. Left ovary measures 2.0 x 1.7 x 1.6 cm. US/US pelvic and transvaginal IMPRESSION: Coarse echotexture of the uterus suggests underlying adenomyosis. 4.3 cm subserosal uterine leiomyoma previously measured 2.9 cm. Electronically signed by: Yves Segundo MD 10/30/2025 05:20 PM [facility] [place] Dictated By: Yves Segundo MD Signed By: <Electronically signed by Yves Segundo MD in OV> 10/30/25 1720 DD/ 1550 TD/TT: 10/30/25 1638 Cotton Machine Operator: Procedure Note Donotuseinterpreter, Image - 10/30/[address] [address] Ultrasound Report Signed Patient: Kala Andersen#: [id number] : 1975Acct:[id number] Age/Sex: 50 / FADM Date: 10/30/25 Loc: HO.US Attending Dr: Get Smith MD Ordering Physician: Get Smith MD Date of Service: 10/30/25 Procedure(s): US pelvic and transvaginal Accession Number(s): [id number] cc: Nori Contreras MD; Get Smith MD Reason for Exam: N93.9 - Abnormal uterine and vaginal bleeding,unspecified EXAMINATION: US PELVIS CLINICAL INFORMATION: N93.9 - Abnormal uterine and vaginal bleeding, unspecified COMPARISON: None available. TECHNIQUE: Ultrasound of the pelvis is performed using both transabdominal and transvaginal transducers along with Doppler. Transvaginal imaging is performed due to inadequate visualization transabdominally. FINDINGS: Uterus: The uterus is anteverted and measures 10.8 x 5.6 x 6.6 cm. The myometrium of the uterus is heterogeneous. The double wall endometrial thickness is well seen given the heterogeneity of the uterus but measured approximately 4 mm. Lobulated heterogeneous mass minimal protrudes from the dorsal left uterine body and measures 4.0 x 4.2 x 4.3 cm comprehensive 2.7 x 2.7 x 2.9 cm consistent with subserosal and intramural leiomyoma. Adnexa: Both ovaries are visualized. There is normal color flow to the adnexa. There is no ovarian torsion. There is no pelvic ascites or fluid collection. Right ovary measures 3.3 x 2.6 x 2.5 cm. Left ovary measures 2.0 x 1.7 x 1.6 cm. US/US pelvic and transvaginal IMPRESSION: Coarse echotexture of the uterus suggests underlying adenomyosis. 4.3 cm subserosal uterine leiomyoma previously measured 2.9 cm. Electronically signed by: Yves Segundo MD 10/30/2025 05:20 PM EST RP Dictated By: Yves Segundo MD Signed By: <Electronically signed by Yves Segundo MD in OV> 10/30/25 1720 DD/ 1550 TD/TT: 10/30/25 1638 Cotton Machine Operator: us [facility] External Provider IMG US PROCEDURES Final Result * BI Mammogram Screening Tomosynthesis Bilateral (10/14/2025 8:24 AM EST) Anatomical Region Laterality Modality Breast Bilateral Mammography 10/14/2025 8:24 AM EST Narrative 10/15/2025 8:46 AM EST [address] [place] [address] Mammography Report Signed Patient: Umm Andersen MR#: [id number] : 1975 Acct:[id number] Age/Sex: 50 / F ADM Date: 10/14/25 Loc: HO.MAMMO Attending Dr: Nori Contreras MD Ordering Physician: Nori Contreras MD Results: 1 Negative Date of Service: 10/14/25 Follow Up: 1 Year From [facility] Mammogram Procedure(s): MM tomosynthesis screening BI Accession Number(s): [id number] cc: Nori Contreras MD Reason For Exam: LT BR 1YR F/U CYSTIC AREA YEARLY EXAMINATION: MM SCREENING DIGITAL BREAST TOMOSYNTHESIS, BILATERAL CLINICAL INFORMATION: Screening. Asymptomatic. COMPARISON: Comparison made to multiple prior, most recent bilateral diagnostic mammogram on December 27, 2023, and most remote January 06, 2022. TECHNIQUE: Digital breast tomosynthesis is performed in mediolateral oblique and craniocaudal views along with computer-aided detection (CAD). Synthesized 2D images are generated from the tomosynthesis. FINDINGS: BREAST COMPOSITION: The breasts are heterogeneously dense, which may obscure small masses. BILATERAL BREASTS: No significant masses, suspicious calcifications or other abnormalities are seen in either breast. MM/MM tomosynthesis screening BI IMPRESSION: BILATERAL BREASTS: Negative, no mammographic evidence of malignancy. Normal interval follow-up is recommended in 12 months. ASSESSMENT: BI-RADS: Category 1: Negative RECOMMENDATION: Routine annual mammography screening. FOLLOW-UP: 1 year F/U This examination should not preclude the clinical evaluation of a suspicious palpable abnormality. This patient's information was entered into a reminder system with a target due date for their next mammogram. Electronically signed by: Jaelyn Michael MD 10/15/2025 08:43 AM EST Dictated By: Jaelyn Michael MD Signed By: <Electronically signed by Jaelyn Michael MD in OV> 10/15/25842 DD/ 3 TD/TT: 10/14/25829 Cotton Machine Operator: Procedure Note Donotuseinterpreter, Image - 10/15/2025 [facility] [address] [place] [address] Mammography Report Signed Patient: Kala Andersen#: [id number] : 1975Acct:[id number] Age/Sex: 50 / FADM Date: 10/14/25 Loc: HO.MAMMO Attending Dr: Nori Contreras MD Ordering Physician: Nori Contreras MDResults: 1 Negative Date of Service: 10/14/25Follow Up: 1 Year From [facility] Mammogram Procedure(s): MM tomosynthesis screening BI Accession Number(s): [id number] cc: Nori Contreras MD Reason For Exam: LT BR 1YR F/U CYSTIC AREA YEARLY EXAMINATION: MM SCREENING DIGITAL BREAST TOMOSYNTHESIS, BILATERAL CLINICAL INFORMATION: Screening. Asymptomatic. COMPARISON: Comparison made to multiple prior, most recent bilateral diagnostic mammogram on December 27, 2023, and most remote January 06, 2022. TECHNIQUE: Digital breast tomosynthesis is performed in mediolateral oblique and craniocaudal views along with computer-aided detection (CAD). Synthesized 2D images are generated from the tomosynthesis. FINDINGS: BREAST COMPOSITION: The breasts are heterogeneously dense, which may obscure small masses. BILATERAL BREASTS: No significant masses, suspicious calcifications or other abnormalities are seen in either breast. MM/MM tomosynthesis screening BI IMPRESSION: BILATERAL BREASTS: Negative, no mammographic evidence of malignancy. Normal interval follow-up is recommended in 12 months. ASSESSMENT: BI-RADS: Category 1: Negative RECOMMENDATION: Routine annual mammography screening. FOLLOW-UP: 1 year F/U This examination should not preclude the clinical evaluation of a suspicious palpable abnormality. This patient's information was entered into a reminder system with a target due date for their next mammogram. Electronically signed by: Jaelyn Michael MD 10/15/2025 08:43 AM EST Dictated By: Jaelyn Michael MD Signed By: <Electronically signed by Jaelyn Michael MD in OV> 10/15/25842 DD/ 3 TD/TT: 10/14/25829 Cotton Machine Operator: us Nori Contreras MD IMG BI PROCEDURES Final Res ult * TSH with Reflex to Free T4 (09/18/2025 12:09 PM EDT) TSH reflex Free T4 0.60 0.32 - 4.0 uIU/mL [facility] 09/18/2025 12:0 9 PM EDT 09/18/2025 12:12 PM EDT Generic External Data Provider LAB BLOOD ORDERAB LES Final Result [facility] [address] [place] [address] [phone] * (ABNORMAL) CBC (09/18/2025 12:09 PM EDT) White Blood Count 4.4(L) 4.8 - 10.8 X10*3/uL [facility] Red Blood Count 3.73(L) 4.20 - 5.50 X10*6/uL [facility] Hemoglobin 11.0(L) 12.0 - 16.0 g/dl [facility] Hematocrit 34.0(L) 37.0 - 47.0 % [facility] Mean Corpuscular Volume 91.2 80.0 - 98.0 fL [facility] Mean Corpuscular Hemoglobin 29.5 27.0 - 33.0 pg [facility] Mean Corpuscular HGB Conc 32.4 31.0 - 35.0 g/dl [facility] Red Cell Distribution Width 12.1 11.0 - 16.0 % [facility] Platelet Count 220 160 - 400 X10*3/uL [facility] Mean Platelet Volume 10.4 9.4 - 12.3 fL [facility] NRBC Pct Auto 0.0 0.0 - 0.2 /100WBC [facility] NRBC Abs Auto 0.000 0.0 - 0.012 X10*3/uL [facility] 09/18/2025 12:0 9 PM EDT 09/18/2025 12:12 PM EDT us Generic External Data Provider LAB BLOOD ORDERAB LES Final Result [facility] [address] [place] [phone] * LH (09/18/2025 12:09 PM EDT) Lutenizing Hormone 14.1 mIU/mL [facility] Comment:Reference Range Foll icular Phase 1.9-12.5 Mid-Cycle Peak 8.7-76.3 Luteal Phase 0.5-16.9 Postmenopausal 10.0-54.7THIS TEST WAS PERFORMED AT:[employer] [place] [id number] ARCINIEGA MD 09/18/2025 12:0 9 PM EDT 09/18/2025 12:12 PM EDT us Generic External Data Provider LAB BLOOD ORDERAB LES Final Result Performing Organization Address [facility] Co de Phone Number [facility] [address] [place] [phone] * FSH (09/18/2025 12:09 PM EDT) Pathologist [facility] Follicle Stimulating Hormone 44.6 mIU/mL [facility] Comment:Reference Range Foll icular Phase 2.5-10.2 Mid-cycle Peak 3.1-17.7 Luteal Phase 1.5- 9.1 Postmenopausal 23.0-116.3THIS TEST WAS PERFORMED AT:[employer] [place] [id number] ARCINIEGA MD 09/18/2025 12:0 9 PM EDT 09/18/2025 12:12 PM EDT us Generic External Data Provider LAB BLOOD ORDERAB LES Final Result Performing Organization Address [facility] de Phone Number [facility] [address] [place] [phone] * Chlamydia/N. Gonorrhoeae RNA, TMA, Urogenitial (09/18/2025 11:20 AM EDT) [facility] CT PCR NOT DETECTED Not Detect. [facility] Comment:A not detected test result [...] psychologicalconsequences. NG PCR NOT DETECTED Not Detect. [facility] Comment:A not detected test result [...] LAB MICROBIOLOGY - GENERAL ORDERABLES Final Result [facility] [address] [place] [address] [phone] * Pap Smear (02/16/2022) Pap Negative for intraephithelial lesion or malignancy Negative for intraephithelial lesion or malignancy, Other HPV Undetected Undetected, Indeterminate, Quantitative, Not Detected Historical Provider HEALTH MAINTENANCE Final Result from Last 3 Months or Most Recently Relevant to Health Maintenance Insurance [employer] Care Teams International Nurse Relationship Specialty Start Date End Date Adair Jj MD [address] [place] [phone] PCP - General Internal Medicine 03/31/20
== END 2025-10-30 15:33 ==
LOC: HO.US 15:32
PROVIDERS: PCP Internal Medicine; Visit Provider Obstetrics & Gynecology
DX: N93.9 Abnormal uterine and vaginal bleeding, unspecified (principal)
CPT/HCPCS: 76830; 76856

== ENCOUNTER → 2025-10-30 15:36 | Outpatient (BNV) | payer SELFPAY | PROVIDERS: PCP Internal Medicine; Visit Provider Radiology Diagnostic Radiology | DX: D25.2 Subserosal leiomyoma of uterus (principal); N93.9 Abnormal uterine and vaginal bleeding, unspecified | CPT/HCPCS: 76830; 76856 ==